=== PATIENT | female | born 1965 | race Caucasian/White ===

== ENCOUNTER → 2019-09-03 10:47 | Outpatient (CLI) | payer OTHER, SELFPAY ==
--- NOTE | ~2019-09-03 | MR_ITS ---
EXAMINATION: MR lumbar spine wo [facility] EXAM DATE: 09/03/2019 11:28 INDICATION: Right hip pain, right thigh pain and numbness. Previous surgery 2012. TECHNIQUE: Multi-sequential, multiplanar MR images of the lumbar spine were obtained without contrast . Sagittal T1, T2, T2 fat saturation images. Axial T2 weighted images. Comparison is made to prior examination from 12/03/2016. FINDINGS: There is mild lumbar levoscoliosis. There is moderate to severe disc disease at L3-4, proba benjamin mild loss of the vertebral body heights on there right sides related to the scoliosis. Moderate t o severe disc disease at L4-5 as well. Mild to moderate disc disease at the other lumbar levels. The conus medullaris terminates at the L1/2 level and has normal signal intensity and morphology. There i s 2 mm retrolisthesis L3 on L4 and L4 on L5. Paraspinal soft tissue is unremarkable. Level by level evaluation: T11-12: There is a mild to moderate diffuse disc bulge. There is superimposed central extrusion with inferior migration to the mid T12 level, new finding compared to prior study. Mild to moderate centr al canal stenosis. Facet arthropathy: Mild. Neural foraminal stenosis: Mild to moderate left, no right. Central canal stenosis: Mild to moderate. T12-L1: There is a minimal diffuse disc bulge. Facet arthropathy: Mild. Neural foraminal stenosis: No stenosis. Central canal stenosis: No stenosis. L1-L2: There is a mild diffuse disc bulge. Facet arthropathy: Mild. Neural foraminal stenosis: No stenosis. Central canal stenosis: No stenosis. L2-L3: There is a mild to moderate diffuse disc bulge. Facet arthropathy: Mild to moderate. Neural foraminal stenosis: Mild to moderate right, mild left. Central canal stenosis: Mild to moderate. L3-L4: There is a moderate diffuse disc bulge. Facet arthropathy: Moderate to severe . Right-sided ligamentum flavum flavum enlargement. Neural foraminal stenosis: Moderate to severe right, moderate left. Central canal stenosis: Mild to moderate. Evidence of prior left hemilaminotomy. L4-L5: There is a moderate diffuse disc bulge. Facet arthropathy: Moderate. Neural foraminal stenosis: Moderate to severe left, mild to moderate right. Central canal stenosis: Moderate. Evidence of prior left, hemilaminotomy. L5-S1: There is a mild diffuse disc bulge. Facet arthropathy: Moderate left, mild to moderate right. Neural foraminal stenosis: Mild to moderate left, mild right. Central canal stenosis: Mild. Compared to previous examination, T11-12 extrusion is new. Otherwise difficult to appreciate signific ant interval change. IMPRESSION: 1. Advanced mid lumbar spondylosis. 2. Mild lumbar levoscoliosis. Reviewed, dictated and finalized at location B. E MINER BLASTING
--- NOTE | ~2019-09-03 | XR_ITS ---
EXAMINATION: XR lumbar spine 6V w bending DATE: 09/03/2019 12:26 INDICATION: Lumbar spondylosis without myelopathy or radiculopathy. TECHNIQUE: 7 views of lumbar spine including flexion and extension views were obtained. COMPARISON: Lumbar spine MRI 09/03/2019 FINDINGS: There is 17 degrees levoscoliosis of lumbar spine. Vertebral body heights are normal. There is severely decreased disc height at L3-L4 and L4-L5 and mildly decreased disc height at L2-L3. Ther e is no abnormal motion with flexion or extension. There is multilevel facet joint osteoarthritis, se jes bilaterally at L3-L4 and L4-L5 and on the left at L5-S1. IMPRESSION: 1. Severe lumbar spondylosis. 2. Lumbar levoscoliosis. Reviewed, dictated and finalized at location A. OR MAJOR GIFTS OFFICER
== END ==
PROVIDERS: PCP Physician Assistant; Visit Provider Physician Assistant Medical
DX: M47.816 Spondylosis without myelopathy or radiculopathy, lumbar region (principal)
CPT/HCPCS: 72114; 72148

== ENCOUNTER 2019-09-19 11:14 | Emergency (ER) | payer OTHER, SELFPAY ==
[2019-09-19 12:11] VITALS: BP 148/89; PULSE 88; RESP 16; TEMP 36.1; O2SAT 98
--- NOTE | 2019-09-19 12:34 | ED.URI ---
HPI - URI/Sore Throat General Chief Complaint: Upper Respiratory Infection Stated Complaint: Sore throat Time Seen by Provider: 09/19/19 12:23 Source: patient and RN notes reviewed Mode of arrival: ambulatory Limitations: no limitations History of Present Illness HPI Narrative: Patient presents today with a 2-day historyOf right ear pain with decreased hearing, headache, sore throat. Denies cough congestion. She has been taking Mucinex, Tylenol, and Chloraseptic with some relief. Reports her pain is an 8/10 in the morning, but worsened Decreases throughout the day. Pain increases with swallowing. MD elicited complaint: sore throat and other (Ear pain) Related Data Home Medications Medication Instructions Recorded Confirmed bupropion HCl [Wellbutrin XL] 150 mg PO QAM 09/19/19 09/19/19 citalopram 20 mg PO DAILY 09/19/19 09/19/19 fenofibrate 160 mg PO DAILY 09/19/19 09/19/19 levothyroxine 50 mcg PO DAILY 09/19/19 09/19/19 morphine 15 mg PO Q8H 09/19/19 09/19/19 pantoprazole 40 mg PO HS 09/19/19 09/19/19 simvastatin 10 mg PO DAILY 09/19/19 09/19/19 Allergies Allergy/AdvReac Type Severity Reaction Status Date / Time AMOXICILLIN TRIHYDRATE AdvReac Severe c-diff Uncoded 09/19/19 12:33 POTASSIUM CLAVULANATE AdvReac Severe c-diff Uncoded 09/19/19 12:33 Review of Systems Review of Systems: Narrative: CONSTITUTIONAL: Denies body aches, fever, chills, or sweats. EYES: Denies visual changes, redness, or discharge. ENT: Denies rhinorrhea, congestion. +Sore throat, right ear pain with decreased hearing CARDIOVASCULAR: Denies chest pain, palpitations, or edema. RESPIRATORY: Denies cough or dyspnea. GASTROINTESTINAL: Denies abdominal pain, nausea, vomiting, or diarrhea. GENITOURINARY: Denies dysuria or hematuria. SKIN: Denies rash, itching, or wounds. MUSCULOSKELETAL: Denies back pain, joint pain, or myalgia. NEUROLOGIC: Denies numbness, tingling, or weakness.+Headache PSYCH: Denies depression or anxiety. PMFSH Comments At time of signature, I have reviewed and agree with nursing past medical, surgical, social and family history unless otherwise noted. Please see nursing chart for further information. There is no relevant family history pertinent to the presenting complaint Exam Narrative: Exam Narrative: GENERAL: Well-appearing, well-nourished, and in no acute distress. HEAD: Normocephalic, atraumatic. EYES: EOMI. No redness or drainage. Conjunctivae normal. ENT: Mucous membranes pink and moist. Nares clear. No rhinorrhea. Left TM normal. Right TM is injected and bulging with purulent material. Throat normal. Uvula midline. NECK: Normal AROM. Supple. No lymphadenopathy. CHEST: No respiratory distress. Clear to auscultation. HEART: Regular rate and rhythm. No murmur appreciated. Normal peripheral pulses. EXTREMITIES: Normal range of motion. No edema. SKIN: Warm, dry, no rash. NEURO: No focal deficits. Alert and oriented x3. Gait steady. PSYCH: Normal affect. No signs of depression or anxiety. Course Vital Signs Vital signs: Vital Signs Temperature 97 F L 09/19/19 12:11 Pulse Rate 88 09/19/19 12:11 Respiratory Rate 16 09/19/19 12:11 Blood Pressure 148/89 H 09/19/19 12:11 Pulse Oximetry 98 09/19/19 12:11 Temperature 97 F L 09/19/19 12:11 Pulse Rate 88 09/19/19 12:11 Respiratory Rate 16 09/19/19 12:11 Blood Pressure 148/89 H 09/19/19 12:11 Pulse Oximetry 98 09/19/19 12:11 Reviewed. Pt has been instructed to follow up with her PCP regarding her elevated blood pressure today. MDM - URI/Sore Throat Differential Diagnosis Differential diagnosis: Likely upper respiratory infection, otitis media, viral infection and other (Strep throat) Lab Data Attestation: I reviewed the patient's lab results. Labs: Strep Screen Presumptive Negative *(Reference Range: Negative)* Critical Care Time Critical Care Time Critical Care Time: No Discharge Plan Discha
== END 2019-09-19 12:40 | disposition home or self-care (01) ==
PROVIDERS: Emergency Provider Nurse Practitioner
DX: H66.001 Acute suppurative otitis media without spontaneous rupture of ear drum, right ear (principal); E78.00 Pure hypercholesterolemia, unspecified; K21.9 Gastro-esophageal reflux disease without esophagitis; E03.9 Hypothyroidism, unspecified; F41.9 Anxiety disorder, unspecified; F32.9 Major depressive disorder, single episode, unspecified
CPT/HCPCS: 87081; 87880; 99213; G0463

== ENCOUNTER 2020-08-30 16:52 | Outpatient (CLI) | payer OTHER, SELFPAY ==
--- NOTE | ~2020-08-30 | MM_ITS ---
EXAMINATION: MM screening sayra BI w laurence HISTORY: Screening mammogram TECHNIQUE: Craniocaudal and mediolateral oblique 3-D tomosynthesis images were obtained and synthetic 2-D images were generated. CAD analysis was submitted and interpreted. COMPARISON: 06/25/2019, 05/01/2018, 06/12/2017 BREAST PARENCHYMAL COMPOSITION: The breasts are almost entirely fatty. FINDINGS: A stable intramammary lymph node is noted in the lower inner left breast. There is no evide nce of suspicious mass, calcification, or architectural distortion to suggest malignancy in either br east. There has been no suspicious interval change. IMPRESSION: 1. No mammographic evidence of malignancy. 2. Recommend routine screening mammography in one year. BI-RADS Category 2: Benign finding(s). Reviewed, dictated and finalized at location A. PACKAGER
== END 2020-08-30 16:53 | disposition home or self-care (01) ==
LOC: ANHIMG 16:56
PROVIDERS: PCP Physician Assistant; Visit Provider Physician Assistant
DX: Z12.31 Encounter for screening mammogram for malignant neoplasm of breast (principal)
CPT/HCPCS: 77063; 77067

== ENCOUNTER → 2021-01-19 07:39 | Outpatient (CLI) | payer OTHER, SELFPAY ==
--- NOTE | ~2021-01-19 | MR_ITS ---
EXAMINATION: MR lumbar spine wo con DATE: 01/19/2021 08:24 INDICATION: Lumbar radiculopathy. TECHNIQUE: Magnetic resonance imaging (MRI) of the lumbar spine was performed without intravenous con trast. Sequences included sagittal T2-weighted FSE, sagittal T2-weighted FS FSE, sagittal T1-weighted FSE, and axial T2-weighted FSE. COMPARISON: Lumbar spine MRI 09/03/2019 FINDINGS: There is 15 degrees levoscoliosis of lumbar spine. Vertebral body heights are normal. There is mildly decreased disc height at L2-L3, severely decreased disc height at L3-L4 and L4-L5, and mil dly decreased disc height at L5-S1. The distal spinal cord signal intensity is normal. The conus medu llaris is at L1. The following disc levels are specifically discussed: L1-L2: The disc is bulging with superimposed left foraminal extrusion. There is moderate bilateral fa cet joint osteoarthritis. There is mild left neural foraminal stenosis. There is mild central canal s tenosis. L2-L3: The disc is bulging and has an annular fissure. There is severe right and moderate left facet joint osteoarthritis. There is mild bilateral neural foraminal stenosis. There is mild central canal stenosis. L3-L4: The disc is bulging and has an annular fissure. There is severe bilateral facet joint osteoart hritis. There is moderate right and mild left neural foraminal stenosis. There is mild central canal stenosis. There are changes of left hemilaminotomy. L4-L5: The disc is bulging and has an annular fissure. There is severe bilateral facet joint osteoart hritis. There is mild right and moderate left neural foraminal stenosis. There is mild central canal stenosis. There are changes of left hemilaminotomy. L5-S1: The disc is bulging and has an annular fissure. There is severe bilateral facet joint osteoart hritis. There is mild bilateral neural foraminal stenosis. There is mild central canal stenosis. IMPRESSION: 1. Severe lumbar spondylosis, stable from 09/03/2019. 2. Lumbar levoscoliosis. Reviewed, dictated and finalized at location A.
== END ==
PROVIDERS: PCP Physician Assistant; Visit Provider Nurse Practitioner Adult Health
DX: M47.26 Other spondylosis with radiculopathy, lumbar region (principal)
CPT/HCPCS: 72148

== ENCOUNTER 2021-03-07 12:03 | Emergency (ER) | payer OTHER, SELFPAY ==
--- NOTE | ~2021-03-07 | XR_ITS ---
EXAMINATION: XR sacrum coccyx min 2V INDICATION: Coccyx pain after fall TECHNIQUE: Three views of the sacrum and coccyx are obtained. COMPARISON: 09/03/2019 FINDINGS: Bone alignment is normal. No fracture is identified. There is moderate to severe lower lumb ar spondylosis. There is soft tissue swelling dorsal to the sacrum and coccyx.. IMPRESSION: 1. No fracture identified. Reviewed, dictated and finalized at location B. IMPRESSION: 1. No fracture identified.
[2021-03-07 12:17] VITALS: BP 167/102; PULSE 80; RESP 18; TEMP 36.6; O2SAT 99
[2021-03-07 12:25] VITALS: BP 160/98
--- NOTE | 2021-03-07 12:31 | ED.GENADULT ---
HPI - General Adult General Chief complaint: Extremity Problem,Nontraumatic Stated complaint: right buttock injury Time Seen by Provider: 03/07/21 12:31 Source: patient and RN notes reviewed Mode of arrival: ambulatory Limitations: no limitations History of Present Illness HPI narrative: 55-year-old female presents with complaints of right buttock pain for the past 2 days. ?Jazmín reports slipping down several stairs at work on Friday March 05, 2021 at approximately 14:30, foot hit the edge of a step causing her to slide down 2 steps and hitting the RT side of her buttock and hip, now has increasing pain daily. ?Tylenol with some relief. ?Denies radiation of pain. ?No new numbness or tingling or bleeding. ?No swelling. ?No loss of mobility. ?Exacerbating factor consists of sitting. ?Some relieving factors consist of lying on the LT side and medication. ?Denies hitting head, loss of consciousness, syncopal episodes, dizziness, or seizure activities. ?Denies dysuria or hematuria. ?LMB today and normal. ?Denies nausea, vomiting, or abdominal pain. ?Tolerating liquids well. ?Remains active. The patient reports she was diagnosed with COVID-19 in October 2020. ?The patient reports she received 2 Moderna COVID-19 vaccines in July 2020. ?The patient reports she is not waiting for the results of a COVID-19 lab test. ?The patient reports she does not have weakness, fatigue, or myalgia. ?The patient reports she does not have a new or worsening cough or shortness of breath. ?The patient reports she does not have any rhinorrhea, congestion, loss of taste, sore throat, and diarrhea. ?Denies recent traveling. ?Denies concerns for COVID-19 or exposures. At this time, the patient is not suspected of having COVID-19. Some parts of this dictation were generated by voice recognition software and may contain typographical and/or grammatical inaccuracies. Related Data Home Medications Medication Instructions Recorded Confirmed ergocalciferol (vitamin D2) 50,000 unit PO WEEKLY 09/19/19 03/07/21 [Vitamin D2] fenofibrate 160 mg PO DAILY 09/19/19 03/07/21 levothyroxine 50 mcg PO DAILY 09/19/19 03/07/21 pantoprazole 40 mg PO HS 09/19/19 03/07/21 simvastatin 10 mg PO DAILY 09/19/19 03/07/21 acetaminophen 975 mg PO BID 03/07/21 03/07/21 bupropion HCl [Forfivo XL] 450 mg PO DAILY 03/07/21 03/07/21 Allergies Allergy/AdvReac Type Severity Reaction Status Date / Time AMOXICILLIN TRIHYDRATE AdvReac Severe c-diff Uncoded 03/07/21 12:32 POTASSIUM CLAVULANATE AdvReac Severe c-diff Uncoded 03/07/21 12:32 Review of Systems Review of Systems: CONSTITUTIONAL: Denies fever, chills, sweats. EYES: Denies visual changes, redness, discharge. ENT: Denies rhinorrhea, congestion, sore throat, otalgia. CARDIOVASCULAR: Denies chest pain, palpitations, edema. RESPIRATORY: Denies dyspnea, wheezing, cough. GASTROINTESTINAL: Denies abdominal pain, nausea, vomiting, diarrhea. GENITOURINARY: Denies dysuria, hematuria, abnormal discharge. SKIN: Denies rash or itching. MUSCULOSKELETAL: Denies acute back pain or myalgia. Complaints of Right buttock pain. NEUROLOGIC: Denies numbness or focal weakness. PSYCHIATRIC: Denies anxiety or depression. All systems reviewed & are unremarkable except as noted in HPI and below. [facility] Past Medical History Medical History (Updated 03/08/21 @ 00:02 by Madhav Damariia) Back pain with history of spinal surgery Chronic pain COVID-19 10/2020 Hypercholesteremia Hypothyroidism Obese Surgical History Surgical History (Updated 03/07/21 @ 13:40 by FRIDA Christie) History of cervical spinal surgery History of spinal surgery Hx of appendectomy Family History Family History (Updated 03/07/21 @ 13:41 by FRIDA Christie) Father , 1987 Cerebrovascular accident Mother Alive and well Social History Social History (Updated 03/07/21 @ 19:40 by FRIDA Christie) Smoking status: Light tobacco smoker
== END 2021-03-07 13:18 | disposition home or self-care (01) ==
PROVIDERS: Emergency Provider Nurse Practitioner Family; PCP Physician Assistant
DX: S39.92XA Unspecified injury of lower back, initial encounter (principal); W10.9XXA Fall (on) (from) unspecified stairs and steps, initial encounter; F17.210 Nicotine dependence, cigarettes, uncomplicated; E78.00 Pure hypercholesterolemia, unspecified; E03.9 Hypothyroidism, unspecified; E66.9 Obesity, unspecified; Z68.36 Body mass index [BMI] 36.0-36.9, adult; Z86.16 Personal history of COVID-19
CPT/HCPCS: 72220; 99213; G0463

== ENCOUNTER → 2021-06-07 13:21 | Outpatient (CLI) | payer OTHER, SELFPAY ==
--- NOTE | ~2021-06-07 | MR_ITS ---
EXAMINATION: MR lumbar spine wo/w con DATE: 06/07/2021 15:21 INDICATION: Lumbar spondylosis. Right-sided low back pain. TECHNIQUE: Magnetic resonance imaging (MRI) of the lumbar spine was performed without and with 19 mL MultiHance intravenous contrast. Sequences included sagittal T2-weighted FSE, sagittal T2-weighted FS FSE, sagittal T1-weighted FSE, and axial T2-weighted FSE. COMPARISON: Lumbar spine MRI 01/19/2021 FINDINGS: There is 16 degrees levoscoliosis of lumbar spine. Vertebral body heights are normal. There is mildly decreased disc height at L1-L2 and L2-L3, severely decreased disc height at L3-L4 and L4-L 5, and moderately decreased disc height at L5-S1 with endplate remodeling. The distal spinal cord sig nal intensity is normal. The conus medullaris is at L1. The following disc levels are specifically di scussed: L1-L2: The disc is bulging and has an annular fissure. There is mild right and moderate left facet rohini int osteoarthritis. There is mild right and moderate left neural foraminal stenosis. There is mild ce ntral canal stenosis. L2-L3: The disc is bulging and has an annular fissure. There is moderate bilateral facet joint osteoa rthritis. There is moderate right and mild left neural foraminal stenosis. There is mild central alecia l stenosis. L3-L4: The disc is bulging and has an annular fissure. There is severe bilateral facet joint osteoart hritis. There is moderate right and mild left neural foraminal stenosis. There is mild central canal stenosis. L4-L5: The disc is bulging and has an annular fissure. There is severe bilateral facet joint osteoart hritis. There is moderate bilateral neural foraminal stenosis. There is mild central canal stenosis. L5-S1: The disc is bulging and has an annular fissure. There is severe bilateral facet joint osteoart hritis. There is moderate bilateral neural foraminal stenosis. There is mild central canal stenosis. IMPRESSION: 1. Severe lumbar spondylosis, stable from 01/13/2021. 2. Lumbar levoscoliosis. Reviewed, dictated and finalized at location A. T SHIFT SUPERVISOR
[2021-06-07 14:33] LABS: Estimated Glomerular Filt Rate 58
== END ==
PROVIDERS: Visit Provider Neurological Surgery
DX: M47.816 Spondylosis without myelopathy or radiculopathy, lumbar region (principal); M41.86 Other forms of scoliosis, lumbar region
CPT/HCPCS: 72158; A9577

== ENCOUNTER 2021-08-24 11:10 | Outpatient (CLI) | payer OTHER, SELFPAY ==
--- NOTE | 2021-08-24 | ECG_ITS ---
Measurements Intervals [place] Rate: 76 P: 51 NE: 173 QRS: 13 QRSD: 92 T: 46 QT: 405 QTc: 458 Interpretive Statements SINUS RHYTHM NORMAL ECG Electronically Signed On 08-24-2021 16:11:15 PHONOGRAPH NEEDLE TIP MAKER by Alex Shane D.O.
[2021-08-24 12:01] LABS: Basophils Absolute Auto 0.1 K/mm3 (0.0-0.1); Basophils Percent Auto 1.2 % (0.2-1.2); Eosinophils Absolute Auto 0.2 K/mm3 (0-0.3); Eosinophils Percent Auto 2.6 % (0-4.4); Hematocrit 36.4 % (37.0-47.0); Hemoglobin 11.8 g/dL (12.0-15.0); Immature Granulocyte Absolute 0.02 K/mm3 (0.00-0.031); Immature Granulocyte Percent A 0.3 % (0-0.5); Lymphocytes Absolute Auto 2.53 K/mm3 (0.9-3.2); Lymphocytes Percent Auto 38.6 % (18.3-44.2); Mean Corpuscular HGB Conc 32.4 g/dl (32-36); Mean Corpuscular Hemoglobin 29.9 pg (26-34); Mean Corpuscular Volume 92.4 fl (80-100); Mean Platelet Volume 9.9 fl (7.4-10.4); Monocytes Absolute Auto 0.4 K/mm3 (0.1-0.6); Monocytes Percent Auto 6.4 % (2.6-8.5); Neutrophils Absolute Auto 3.3 K/mm3 (1.3-6.7); Neutrophils Percent Auto 50.9 % (45.5-73.1); Platelet Count Result 506 k/mm3 (150-375); Red Blood Count 3.94 M/mm3 (4.2-5.4); Red Cell Distribution Width 12.2 % (11.5-14.5); White Blood Count 6.6 K/mm3 (4.5-10.0)
[2021-08-24 12:03] LABS: Add Urine Microscopic? NO; Appearance Urine Clear (Clear); Bilirubin Urine Negative (Negative); Blood Urine Negative (Negative); Color Urine Yellow (Yellow); Glucose Urine UA Negative (Negative); Ketones Urine Negative (Negative); Leukocyte Esterase Ur Negative LEU/UL (NEGATIVE); Nitrate Urine Negative (Negative); Protein Urine Negative (Negative); Specific Grav Ur 1.015 (1.001-1.035); Urobilinogen Urine Negative mg/dL (<2.0)
[2021-08-24 12:12] LABS: Partial Thromboplastin Time 26.8 SECONDS (22.3-36.8); Prothrombin Time 12.6 Seconds (11.1-14.7)
[2021-08-24 12:20] LABS: Anion Gap 7 mmol/L (8-16); Blood Urea Nitrogen 13 mg/dL (7-17); Calcium 9.9 mg/dL (8.4-10.2); Carbon Dioxide 29 mmol/L (22-30); Chloride 104 mmol/L (98-107); Estimated Glomerular Filt Rate 58; Glucose 101 mg/dL (65-110); Potassium 4.1 mmol/L (3.4-5.0); Sodium 140 mmol/L (137-145)
== END 2021-08-24 11:11 | disposition home or self-care (01) ==
PROVIDERS: PCP Physician Assistant; Visit Provider Neurological Surgery
DX: Z01.818 Encounter for other preprocedural examination (principal)
CPT/HCPCS: 36415; 80048; 81003; 85025; 85610; 85730; 93005

== ENCOUNTER 2022-03-09 16:26 | Emergency (ER) | payer OTHER, SELFPAY ==
[2022-03-09 16:28] VITALS: BP 179/99; PULSE 83; RESP 18; TEMP 37.1; O2SAT 100
--- NOTE | 2022-03-09 17:01 | ED.WOUNDLAC ---
HPI - Wound/Laceration General Chief Complaint: Wound/Laceration Stated Complaint: right thumb lac Time Seen by Provider: 03/09/22 16:49 History of Present Illness HPI narrative: This is a 56-year-old female past medical history of hypothyroidism, coming to the emergency department after cutting her right thumb on a mandolin. She states she was slicing potatoes. She denies any other injuries, her pain is 4 out of 10, sharp. She has no other complaints today. Related Data Home Medications Medication Instructions Recorded Confirmed ergocalciferol (vitamin D2) 1,250 50,000 unit PO WEEKLY 09/19/19 03/07/21 mcg (50,000 unit) capsule (Vitamin D2) fenofibrate 160 mg tablet 160 mg PO DAILY 09/19/19 03/07/21 levothyroxine 50 mcg tablet 50 mcg PO DAILY 09/19/19 03/07/21 pantoprazole 40 mg tablet,delayed 40 mg PO HS 09/19/19 03/07/21 release simvastatin 10 mg tablet 10 mg PO DAILY 09/19/19 03/07/21 acetaminophen 325 mg tablet 975 mg PO BID 03/07/21 03/07/21 bupropion HCl 450 mg 24 hr tablet, 450 mg PO DAILY 03/07/21 03/07/21 extended release (Forfivo XL) Allergies Allergy/AdvReac Type Severity Reaction Status Date / Time AMOXICILLIN TRIHYDRATE AdvReac Severe c-diff Uncoded 03/07/21 12:32 POTASSIUM CLAVULANATE AdvReac Severe c-diff Uncoded 03/07/21 12:32 Review of Systems Review of Systems: CONSTITUTIONAL: Denies fever, chills, or sweats. EYES: Denies visual changes, redness, or discharge. ENT: Denies rhinorrhea, congestion, sore throat, or otalgia. CARDIOVASCULAR: Denies chest pain, palpitations, or edema. RESPIRATORY: Denies cough or dyspnea. GASTROINTESTINAL: Denies abdominal pain, nausea, vomiting, or diarrhea. GENITOURINARY: Denies dysuria or hematuria. SKIN: Denies rash or itching. MUSCULOSKELETAL: Denies back pain, joint pain, or myalgia. NEUROLOGIC: Denies headache, numbness, dizziness, or weakness. PSYCHIATRIC: Denies anxiety or depression. [facility] Past Medical History Medical History (Updated 03/09/22 @ 18:15 by Foreign Gross MD) Back pain with history of spinal surgery Chronic pain COVID-19 10/2020 Hypercholesteremia Hypothyroidism Obese Surgical History Surgical History (Updated 03/07/21 @ 13:40 by FRIDA Christie) History of cervical spinal surgery History of spinal surgery Hx of appendectomy Family History Family History (Updated 03/07/21 @ 13:41 by FRIDA Christie) Father , 1987 Cerebrovascular accident Mother Alive and well Social History Social History (Updated 03/07/21 @ 19:40 by FRIDA Christie) Smoking status: Light tobacco smoker Tobacco type: cigarettes Second hand tobacco smoke exposure: Yes (spouse) Additional smoking assessment comments: had quit 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 HEAD: Normocephalic, atraumatic. EYES: PERRLA and EOMI. CHEST: Clear to auscultation. No respiratory distress. No wheezes rales or rhonchi HEART: Regular rate and rhythm. No murmur heard. Normal peripheral pulses. ABDOMEN: Soft, nontender, nondistended, normal active bowel sounds. EXTREMITIES: 3 cm ovoid laceration with flap of the right medial palmar thumb, sensation intact, range of motion of the thumb is intact normal range of motion. No edema. SKIN: Warm, dry, no rash. NEURO: No focal deficits. Alert and oriented x3. PSYCH: Normal mood and affect. Course Vital Signs Vital signs: Vital Signs Temperature 98.7 F 03/09/22 16:28 Pulse Rate 83 03/09/22 16:28 Respiratory Rate 18 03/09/22 16:28 Blood Pressure 179/99 H 03/09/22 16:28 Pulse Oximetry 100 03/09/22 16:28 Temperature 98.7 F 03/09/22 16:28
== END 2022-03-09 18:22 | disposition home or self-care (01) ==
PROVIDERS: Emergency Provider Preventive Medicine Aerospace Medicine; PCP Physician Assistant
DX: S61.011A Laceration without foreign body of right thumb without damage to nail, initial encounter (principal); Z86.16 Personal history of COVID-19; E78.00 Pure hypercholesterolemia, unspecified; E03.9 Hypothyroidism, unspecified; E66.9 Obesity, unspecified; Z68.35 Body mass index [BMI] 35.0-35.9, adult; F17.210 Nicotine dependence, cigarettes, uncomplicated; Y93.G1 Activity, food preparation and clean up; W27.4XXA Contact with kitchen utensil, initial encounter
CPT/HCPCS: 12002; 99282

== ENCOUNTER → 2022-03-25 12:03 | Outpatient (CLI) | payer OTHER, SELFPAY ==
--- NOTE | ~2022-03-25 | MM_ITS ---
EXAMINATION: MM screening sayra BI w laurence HISTORY: Screening mammogram TECHNIQUE: Craniocaudal and mediolateral oblique 3-D tomosynthesis images were obtained and synthetic 2-D images were generated. CAD analysis was submitted and interpreted. COMPARISON: 08/30/2020, 06/25/2019, 05/01/2018 BREAST PARENCHYMAL COMPOSITION: The breasts are almost entirely fatty. FINDINGS: Again noted is a stable intramammary lymph node is noted in the lower inner left breast. Th ere is no suspicious mass, calcification, or architectural distortion to suggest malignancy in either breast. There has been no suspicious interval change. IMPRESSION: 1. No mammographic evidence of malignancy. 2. Recommend routine screening mammography in one year. BI-RADS Category 2: Benign finding(s). Reviewed, dictated and finalized at location A.
--- NOTE | ~2022-03-25 | DEXA_ITS ---
Bone Density Report Name: JOSE EDUARDO JASSO Age: 56 Sex: Female Ethnicity: White Date of : 1965 Indication: postmenopausal; screening for osteoporosis; Referring Provider: DOC METZ Study: Bone densitometry was performed. Exam Date: March 25, 2022 Accession number: [id number] Bone Density: Region BMD T-score Z-score Classification AP Spine (L1, L2, L3) 1.059 0.4 1.5 Normal Femoral Neck (Left) 0.594 -2.3 -1.2 Osteopenia Total Hip (Left) 0.866 -0.6 0.1 Normal Femoral Neck (Right) 0.616 -2.1 -1.0 Osteopenia Total Hip (Right) 0.777 -1.4 -0.6 Osteopenia Total Hip Mean 0.822 -1.0 -0.3 Normal World Health Organization criteria for BMD impression classify patients as: Normal (T-score at or above -1.0), Osteopenia (T-score between -1.0 and -2.5), or Osteoporosis (T-score at or below -2.5). 10-year Fracture Risk(1): Major Osteoporotic Fracture 8.4% Hip Fracture 1.9% Reported Risk Factors: [place] (), Neck BMD=0.594, BMI=36.1, smoking (1) FRAX(R) Version 3.08. Fracture probability calculated for an untreated patient. Fracture probability may be lower if the patient has received treatment. Previous Exams: Region Exam Age BMD T-score BMD Change BMD Change Date g/cm2 vs Baseline vs Previous AP Spine(L1, L2, L3) 03/25/2022 56 1.059 0.4 -0.058* -0.058* 09/17/2015 50 1.117 0.9 Total Hip(Left) 03/25/2022 56 0.866 -0.6 -0.020 -0.020 09/17/2015 50 0.887 -0.5 Total Hip(Right) 03/25/2022 56 0.777 -1.4 -0.069* -0.069* 09/17/2015 50 0.845 -0.8 *Denotes significance at 95% confidence level, LSC for AP Spine = 0.022 g/cm2, LSC for Total Hip = 0.027 g/cm2 Clinical Information Provided by Patient: Smokes Has used the following medications: Vitamin D Patient maximum height was 64 Menopause Age: 43 No regular weight bearing exercise Drinks caffeinated beverages Onset of menses at age 14 Number of children 0 Impression: The patient has low bone mass, based on the Left Femoral Neck T-score. The patient has an estimated ten-year risk of hip fracture of 1.9% and an estimated ten-year risk of major fracture of 8.4%, based on the WHO FRAX algorithm. The patient has risk factors, including: smoking. The BMD for the AP Spine(L1, L2, L3) decreased, changing by -0.058 since the last DXA exam. The BMD for the Total Hip(Right) decreased, changing by -0.069 since the last DXA exam.
== END ==
PROVIDERS: PCP Physician Assistant; Visit Provider Advanced Practice Midwife
DX: Z12.31 Encounter for screening mammogram for malignant neoplasm of breast (principal); Z78.0 Asymptomatic menopausal state; M85.89 Other specified disorders of bone density and structure, multiple sites
CPT/HCPCS: 77063; 77067; 77080

== ENCOUNTER 2022-08-07 08:18 | Outpatient (CLI) | payer OTHER, SELFPAY ==
--- NOTE | 2022-08-25 11:30 | WPDSLEEPSTUD ---
Sleep Study Date of Study: 08/07/22 Ordering Provider: Les Villatoro MD Interpreting Physician: Jduy Lyons DO Sleep Study Type: Split Polysomnogram Height: 1.63 m Weight: 88.904 kg Body Mass Index: 33.6 Neck Circumference (inches): 16 [place]: 9 Reason for Sleep Study Previously diagnosed with COOPER. Non compliant with CPAP. Sleep History The patient is a 57-year-old female with hypertension hyperlipidemia, hypothyroidism, depression, GERD, tobacco use previously diagnosed sleep apnea had a sleep study ordered by her floorworker to requalify for PAP therapy. The patient denies awakening from sleep short of breath. She frequently awakens at night with heartburn, belching or cough. She frequently snores and is occasionally loud enough that others complain. He denies having trouble sleeping when she has a cold. She denies waking up gasping for air throughout the night. She frequently has breathing problems at night observed by herself or others. She denies sweating excessively at night. She denies having heart palpitations or irregular heartbeats during the night. She denies falling asleep during the day and while driving. She denies sleep paralysis and cataplexy. She denies having trouble at school or work due to sleepiness. She occasionally experiences vivid dreamlike scenes upon awakening or falling asleep. She denies feeling afraid of going to sleep. She constantly has nightmares. She frequently remembers her dreams. She constantly has thoughts racing through her mind. She frequently feels sad or depressed. She constantly has anxiety. She frequently has muscular tension. She rarely notices parts of her body jerk. She denies kicking during the night. She denies having crawling and aching feelings in her legs as well as leg pain during the night. She frequently grinds her teeth during sleep and frequently awakens with morning jaw pain. She is constantly bothered by pain during the day and constantly awakened by pain during the night. She constantly wakes up feeling stiff morning. She occasionally wakes up with sore or achy muscles. She constantly wakes up with pain in the neck, spine or other joints. She goes to bed at 8:30 p.m. on both weekdays and weekends. She is able to fall asleep immediately. She wakes up 3-4 times throughout the night to urinate. It can take a few hours for her to fall back asleep. She wakes up at 5:00 a.m. on weekdays and between 5-5:30 a.m. on the weekends. He typically gets 7-8 hours of sleep per night. She will stay in bed for 5-15 minutes after waking up in the morning. She currently lives with her . She denies consuming any caffeinated beverages within 2 hours of bedtime. She does not engage in physical exercise before bedtime. She will watch television before falling asleep. She denies taking naps in the afternoon or the evening. She drinks 2-3 cups of coffee per day. She will smoke half a pack of cigarettes per day. She denies alcohol and recreational drug use. [facility] Past Medical History Medical History Back pain with history of spinal surgery Chronic pain COVID-19 10/2020 Encounter for screening colonoscopy Hypercholesteremia Hypothyroidism Obese Surgical History Surgical History History of cervical spinal surgery History of spinal surgery Hx of appendectomy Family History Family History Father , 1987 Cerebrovascular accident Mother Alive and well Social History Social History Years smoked: 30 Smoking status: Light tobacco smoker Tobacco type: cigarettes Second hand tobacco smoke exposure: Yes (spouse) Additional smoking assessment comments: had quit but now works an hour each directions to work
[2022-08-25 11:42] VITALS: BMI 33.6
== END 2022-08-08 06:37 | disposition home or self-care (01) ==
PROVIDERS: PCP Physician Assistant; Visit Provider Internal Medicine Pulmonary Disease
DX: G47.33 Obstructive sleep apnea (adult) (pediatric) (principal); G47.10 Hypersomnia, unspecified
CPT/HCPCS: 95811

== ENCOUNTER 2022-10-10 00:45 | Day surgery (SDC) | payer OTHER, SELFPAY ==
[2022-10-01 14:33] VITALS: BMI 34.3
[2022-10-10 07:00] VITALS: BP 127/78; PULSE 76; RESP 16; TEMP 35.9; O2SAT 98
--- NOTE | 2022-10-10 07:12 | WPDANESEPPF ---
Anes - Initial Pre Proc Eval Procedure: Operation Date: 10/10/22 08:00 Proposed Procedures p Esophagogastroduodenoscopy & Screening Colonoscopy - Santiago Colmenares MD Date/Time: 10/10/22 07:12 Surgeon: Santiago Colmenares MD Pre Op Diagnosis: GERD, family hx colon ca, neoplasm screening Patient Data Age: 57 Gender: F Height: 1.63 m Weight: 91.1 kg Last Vital Signs Temp 35.9 C L 10/10/22 07:00 Pulse 76 10/10/22 07:00 Resp 16 10/10/22 07:00 BP 127/78 10/10/22 07:00 Pulse Ox 98 10/10/22 07:00 O2 Del Method Room Air 10/10/22 07:00 Allergies Allergy/AdvReac Type Severity Reaction Status Date / Time POTASSIUM CLAVULANATE AdvReac Severe c-diff Uncoded 10/10/22 06:57 Home Medications Medication Instructions Recorded Confirmed Type ergocalciferol (vitamin D2) 1,250 50,000 unit PO WEEKLY 09/19/19 10/01/22 History mcg (50,000 unit) capsule (Vitamin D2) fenofibrate 160 mg tablet 160 mg PO DAILY 09/19/19 10/01/22 History levothyroxine 50 mcg tablet 50 mcg PO DAILY 09/19/19 10/01/22 History simvastatin 10 mg tablet 10 mg PO DAILY 09/19/19 10/01/22 History bupropion HCl 450 mg 24 hr tablet, 450 mg PO DAILY 08/06/22 10/10/22 History extended release (Forfivo XL) clonazepam 0.5 mg tablet 0.25 mg PO QHS 08/06/22 10/01/22 History multivitamin (Multiple Vitamins 1 tablet PO DAILY 08/06/22 10/01/22 History tablet) nebivolol 5 mg tablet 5 mg PO DAILY 08/06/22 10/10/22 History sodium,potassium,mag sulfates 17.5 See Rx Instructions PO .COMPLEX 09/18/22 10/01/22 Rx gram-3.13 gram-1.6 gram oral soln #354 mL (Suprep Bowel Prep Kit) escitalopram oxalate 20 mg tablet 20 mg PO DAILY 10/01/22 10/01/22 History (Lexapro) Patient hx anesthesia problems: none Family hx anesthesia problems: none Results Review: All pre-operative results and documents have been reviewed as part of the pre-operative evaluation. [facility] Past Medical History Medical History Back pain with history of spinal surgery Chronic pain COVID-19 10/2020 Encounter for screening colonoscopy Hypercholesteremia Hypothyroidism Obese Surgical History Surgical History History of cervical spinal surgery History of spinal surgery Hx of appendectomy Family History Family History Father , 1987 Cerebrovascular accident Mother Alive and well Social History Social History Years smoked: 20 Smoking status: Former smoker Tobacco type: cigarettes Second hand tobacco smoke exposure: Yes (spouse) Additional smoking assessment comments: had quit but now works an hour each directions to work Alcohol intake: current Alcohol use details: social Substance use: former Substance use type: former substance user and other Other substance usage details: alcohol Last use: 2001 Living arrangements: with family Occupation/Education: occupation Gender identity (if verbalized by the patient): Female Sexual Orientation (if Verbalized by the Patient): Straight or Heterosexual Spiritual care concerns: No Anes - Eval Final PreProcedure Day of Procedure 10/10/22 07:12 Patient weight: obese Heart: regular rate and rhythm Lungs: clear to auscultation Airway: Mallampati scale class II Neurological: alert and oriented Last oral intake: >/= 8 hours ASA classification: III Emergent: no Anesthetic plan: proceed Anesthesia type and monitoring: general GIVS and standard monitoring Results Review: All pre-operative results and documents have been reviewed as part of the pre-operative evaluation. Informed Consent: The patient's anesthetic plan and its attendant risks and benefits were discussed with the patient/family/POA. Questions were solicited and answers provided to the satisfactio
[2022-10-10] MEDS: LACTATED RINGERS 1,000 ML 150 ML IV CONT (07:15)
--- NOTE | 2022-10-10 07:26 | PM.HPGS ---
History of Present Illness History of Present Illness Consent: Risks, benefits, and alternatives have been discussed and questions answered. Patient agrees to proceed with procedure. Chief complaint: GERD, family hx colon ca, neoplasm screening Narrative: Jazmín Dejesus is a 57 year old female Patient presents for colonoscopy and EGD. Patient reports a long history of GE reflux for many years. She states she has been on many different medications. Apparently has had difficulty with insurance coverage. Occasionally takes [id number] Pepcid most recently has taken [id number] omeprazole 20mg tablets twice a day. Previously on generic AcipHex. Patient reports that nocturnally she will have regurgitation. This causes some burning in her throat. She states that she only has a couple cups of coffee in the morning. Currently frustrated because of regurgitation. Family history is significant her father had colon cancer. Patient reports has been more than 12 years since last colonoscopy. Screening colonoscopy also advised because of her age and family history. Review of Systems Review of Systems: Review of systems noncontributory. PMFSH Past Medical History Medical History Back pain with history of spinal surgery Chronic pain COVID-19 10/2020 Encounter for screening colonoscopy Hypercholesteremia Hypothyroidism Obese Surgical History Surgical History History of cervical spinal surgery History of spinal surgery Hx of appendectomy Family History Family History Father , 1987 Cerebrovascular accident Mother Alive and well Social History Social History Years smoked: 20 Smoking status: Former smoker Tobacco type: cigarettes Second hand tobacco smoke exposure: Yes (spouse) Additional smoking assessment comments: had quit but now works an hour each directions to work Alcohol intake: current Alcohol use details: social Substance use: former Substance use type: former substance user and other Other substance usage details: alcohol Last use: 2001 Living arrangements: with family Occupation/Education: occupation Gender identity (if verbalized by the patient): Female Sexual Orientation (if Verbalized by the Patient): Straight or Heterosexual Spiritual care concerns: No Meds Home Medications and Allergies Home Medications Medication Instructions Recorded Confirmed Type ergocalciferol (vitamin D2) 1,250 50,000 unit PO WEEKLY 09/19/19 10/01/22 History mcg (50,000 unit) capsule (Vitamin D2) fenofibrate 160 mg tablet 160 mg PO DAILY 09/19/19 10/01/22 History levothyroxine 50 mcg tablet 50 mcg PO DAILY 09/19/19 10/01/22 History simvastatin 10 mg tablet 10 mg PO DAILY 09/19/19 10/01/22 History bupropion HCl 450 mg 24 hr tablet, 450 mg PO DAILY 08/06/22 10/10/22 History extended release (Forfivo XL) clonazepam 0.5 mg tablet 0.25 mg PO QHS 08/06/22 10/01/22 History multivitamin (Multiple Vitamins 1 tablet PO DAILY 08/06/22 10/01/22 History tablet) nebivolol 5 mg tablet 5 mg PO DAILY 08/06/22 10/10/22 History sodium,potassium,mag sulfates 17.5 See Rx Instructions PO .COMPLEX 09/18/22 10/01/22 Rx gram-3.13 gram-1.6 gram oral soln #354 mL (Suprep Bowel Prep Kit) escitalopram oxalate 20 mg tablet 20 mg PO DAILY 10/01/22 10/01/22 History (Lexapro) Allergies Allergy/AdvReac Type Severity Reaction Status Date / Time POTASSIUM CLAVULANATE AdvReac Severe c-diff Uncoded 10/10/22 06:57 Vital Signs Vital Signs - 24 hr 10/10/22 07:00 Temperature 96.6 F L Pulse Rate 76 Respiratory Rate 16 Blood Pressure 127/78 Pulse Oximetry 98 Oxygen Delivery Room Air Exam Narrative: Physical exam reveals patient to be alert. Vital sign
--- NOTE | 2022-10-10 08:04 | SUR.OPER ---
EGD start 805 end 806 Colonoscopy start 814
[2022-10-10 08:30] VITALS: BP 97/63; PULSE 82; RESP 24; TEMP 35.9; O2SAT 98
[2022-10-10 08:40] VITALS: BP 102/63; PULSE 94; RESP 23; TEMP 35.9; O2SAT 96
[2022-10-10 08:50] VITALS: BP 101/70; PULSE 94; RESP 20; TEMP 35.9; O2SAT 98
== END 2022-10-10 08:56 | disposition home or self-care (01) ==
PROVIDERS: PCP Physician Assistant; Visit Provider Internal Medicine Gastroenterology
PROC: 0DJ08ZZ Inspection of Upper Intestinal Tract, Via Natural or Artificial Opening Endoscopic (ICD-10-PCS; CPT 43235; principal; 2022-10-10 08:00)
DX: Z12.11 Encounter for screening for malignant neoplasm of colon (principal); K64.8 Other hemorrhoids; Z80.0 Family history of malignant neoplasm of digestive organs; K21.9 Gastro-esophageal reflux disease without esophagitis; E03.9 Hypothyroidism, unspecified; E78.00 Pure hypercholesterolemia, unspecified; E66.9 Obesity, unspecified; Z68.34 Body mass index [BMI] 34.0-34.9, adult; Z87.891 Personal history of nicotine dependence
CPT/HCPCS: 45378; 43239; 87081; J2704; J7120

== ENCOUNTER 2023-03-29 02:29 | Emergency (ER) | payer OTHER, SELFPAY ==
[2023-03-29] VITALS (12 sets, daily range): BP systolic 101–133; BP diastolic 66–94; PULSE 66–85; RESP 14–19; TEMP 36.8; O2SAT 96–99
--- NOTE | ~2023-03-29 | CT_ITS ---
EXAMINATION: CT abdomen pelvis w con DATE: 03/29/2023 04:30 INDICATION: Right upper quadrant abdominal pain. Nausea and vomiting. TECHNIQUE: Computed tomography (CT) of the abdomen and pelvis was performed with 100 mL Omnipaque 350 intravenous contrast. Automated exposure control and iterative reconstruction technique were employe d. The dose-length product was 1148.52 mGy-cm. COMPARISON: CT abdomen and pelvis 03/13/2016 FINDINGS: The visualized portions of the lung bases demonstrate mild atelectasis. No pleural effusion . The heart size is normal. No pericardial effusion. There is a small sliding hiatal hernia. There is diffuse hepatic steatosis. The gallbladder, spleen, pancreas, and left adrenal gland are normal. The re is a 2.7 cm mass in right adrenal gland measuring soft tissue attenuation that previously measured 2.0 cm, likely an adenoma. There is cortical thinning of the kidneys. There is a supraumbilical vent ral hernia containing fat. There is a small volume of ascites. The appendix is normal. There are mild ly dilated loops of jejunum, consistent with adynamic ileus. There is wall thickening of many loops o f small bowel, consistent with enteritis. Aortic atherosclerosis is noted. There are no pathologicall y enlarged lymph nodes. There is lumbar levoscoliosis and severe spondylosis. IMPRESSION: 1. Enteritis and adynamic ileus. 2. Small volume of ascites. 3. Small sliding hiatal hernia. 4. Supraumbilical ventral hernia containing fat. Reviewed, dictated and finalized at location E.
--- NOTE | 2023-03-29 03:27 | ECG_ITS ---
Measurements Intervals [place] Rate: 72 P: 57 SC: 174 QRS: -4 QRSD: 93 T: 11 QT: 418 QTc: 460 Interpretive Statements SINUS RHYTHM BORDERLINE T WAVE ABNORMALITY- ANT/INF LEADS BORDERLINE ECG COMPARED TO ECG 08/24/2021 12:22:26 T WAVE ABNORMALITY NOW PRESENT Electronically Signed On 03-29-2023 7:18:26 CDT by Alex Shane D.O.
[2023-03-29] MEDS: SODIUM CHLORIDE 0.9% IV 2,000 ML 999 ML IV CONT (03:49)
[2023-03-29 03:50] LABS: Basophils Percent Auto 0.2 % (0.2-1.2); Eosinophils Absolute Auto 0.1 K/mm3 (0-0.3); Eosinophils Percent Auto 0.6 % (0-4.4); Hematocrit 45.3 % (37.0-47.0); Hemoglobin 14.8 g/dL (12.0-15.0); Immature Granulocyte Absolute 0.11 K/mm3 (0.00-0.031); Immature Granulocyte Percent A 0.5 % (0-0.5); Lymphocytes Absolute Auto 1.83 K/mm3 (0.9-3.2); Lymphocytes Percent Auto 9.1 % (18.3-44.2); Mean Corpuscular HGB Conc 32.7 g/dl (32-36); Mean Corpuscular Hemoglobin 30.3 pg (26-34); Mean Corpuscular Volume 92.6 fl (80-100); Mean Platelet Volume 9.8 fl (7.4-10.4); Monocytes Absolute Auto 0.7 K/mm3 (0.1-0.6); Monocytes Percent Auto 3.2 % (2.6-8.5); Neutrophils Absolute Auto 17.3 K/mm3 (1.3-6.7); Neutrophils Percent Auto 86.4 % (45.5-73.1); Platelet Count Result 643 k/mm3 (150-375); Red Blood Count 4.89 M/mm3 (4.2-5.4); Red Cell Distribution Width 12.5 % (11.5-14.5)
[2023-03-29] MEDS: ONDANSETRON INJ 4 MG/2 ML VIAL IV PUSH (03:50)
[2023-03-29] MEDS: ACETAMINOPHEN 500 MG TABLET 1000 MG PO (03:51)
[2023-03-29] MEDS: HYDROmorphone HCL INJ (*CRX) 1 MG/ML SYR 0.5 MG IV PUSH (03:52)
[2023-03-29] MEDS: KETOROLAC 15 MG/ML VIAL (*BKC) IV PUSH (03:54)
[2023-03-29 04:02] LABS: Alanine Aminotransferase 27 U/L (6-35); Albumin Level 4.8 g/dL (3.5-5.1); Alkaline Phosphatase 61 U/L (38-126); Anion Gap 13 mmol/L (8-16); Aspartate Amino Transferase 32 U/L (14-36); Bilirubin,Total 0.5 mg/dL (0.2-1.3); Blood Urea Nitrogen 18 mg/dL (7-17); Calcium 9.3 mg/dL (8.4-10.2); Carbon Dioxide 23 mmol/L (22-30); Chloride 101 mmol/L (98-107); Estimated CRCL calculation 55 ml/min; Estimated Glomerular Filt Rate 51; Glucose 175 mg/dL (65-110); Lipase 74 U/L (23-300); Magnesium 1.6 mg/dL (1.6-2.3); Potassium 3.7 mmol/L (3.4-5.0); Sodium 137 mmol/L (137-145)
--- NOTE | 2023-03-29 05:49 | ED.GENADULT ---
HPI - General Adult General Chief complaint: Nausea/Vomiting/Diarrhea Stated complaint: n/v/d Time Seen by Provider: 03/29/23 03:13 History of Present Illness HPI narrative: This is a 57-year-old female presenting ED with a chief complaint of nausea vomiting diarrhea. At 3:00 p.m. patient started to have bowel belches that tasted like rotten eggs. This was after she had chicken livers and gives hurts for breakfast. Shortly after she developed nausea vomiting and diarrhea. She has been having subjective fever and chills and some crampy epigastric pain. Patient denies fevers, chest pain difficulty breathing or urinary symptoms. patient has no appetite. Related Data Home Medications Medication Instructions Recorded Confirmed ergocalciferol (vitamin D2) 1,250 50,000 unit PO WEEKLY 09/19/19 10/01/22 mcg (50,000 unit) capsule (Vitamin D2) fenofibrate 160 mg tablet 160 mg PO DAILY 09/19/19 10/01/22 levothyroxine 50 mcg tablet 50 mcg PO DAILY 09/19/19 10/01/22 simvastatin 10 mg tablet 10 mg PO DAILY 09/19/19 10/01/22 bupropion HCl 450 mg 24 hr tablet, 450 mg PO DAILY 08/06/22 10/10/22 extended release (Forfivo XL) clonazepam 0.5 mg tablet 0.25 mg PO QHS 08/06/22 10/01/22 multivitamin (Multiple Vitamins 1 tablet PO DAILY 08/06/22 10/01/22 tablet) nebivolol 5 mg tablet 5 mg PO DAILY 08/06/22 10/10/22 escitalopram oxalate 20 mg tablet 20 mg PO DAILY 10/01/22 10/01/22 (Lexapro) Allergies Allergy/AdvReac Type Severity Reaction Status Date / Time POTASSIUM CLAVULANATE AdvReac Severe c-diff Uncoded 10/10/22 06:57 PMFSH Past Medical History Medical History Back pain with history of spinal surgery Chronic pain COVID-19 10/2020 Encounter for screening colonoscopy Hypercholesteremia Hypothyroidism Obese Surgical History Surgical History History of cervical spinal surgery History of spinal surgery Hx of appendectomy Family History Family History Father , 1987 Cerebrovascular accident Mother Alive and well Social History Social History Years smoked: 20 Smoking status: Former smoker Tobacco type: cigarettes Second hand tobacco smoke exposure: Yes (spouse) Additional smoking assessment comments: had quit but now works an hour each directions to work Alcohol intake: current Alcohol use details: social Substance use: former Substance use type: former substance user and other Other substance usage details: alcohol Last use: 2001 Living arrangements: with family Occupation/Education: occupation Gender identity (if verbalized by the patient): Female Sexual Orientation (if Verbalized by the Patient): Straight or Heterosexual Spiritual care concerns: No Exam Narrative: APPEARANCE: No apparent distress. Head: atraumatic. EYES: EOMI, NOSE: Atraumatic NECK: Trachea midline RESPIRATORY: No increased rate of breathing , CTAB CARDIOVASCULAR: RRR, ABDOMINAL: abdomen is soft but diffusely, worse on the right than left. Point of care right upper quadrant ultrasound showed a distended gallbladder but no gallbladder wall thickening or pericholecystic fluid. MUSCULOSKELETAl: No obvious deformities NEURO: Alert. Moving 4/4 extremities SKIN:: Warm, dry. Normal color PSYCHIATRIC: Normal affect Course Vital Signs Vital signs: Vital Signs Temperature 98.2 F 03/29/23 02:37 Pulse Rate 85 03/29/23 02:37 Respiratory Rate 18 03/29/23 02:37 Blood Pressure 129/94 H 03/29/23 02:37 Pulse Oximetry 98 03/29/23 02:37 Oxygen Delivery Room Air 03/29/23 02:37 Temperature 98.2 F 03/29/23 02:37 Pulse Rate 75 03/29/23 06:31 Respiratory Rate 19 03/29/23 06:31 Blood Pressure 101/74 03/29/23 06:31 Pulse Oximetry 97 03/29/23 06:3
== END 2023-03-29 06:45 | disposition home or self-care (01) ==
PROVIDERS: Emergency Provider Emergency Medicine; PCP Physician Assistant
DX: K52.9 Noninfective gastroenteritis and colitis, unspecified (principal); E78.00 Pure hypercholesterolemia, unspecified; E03.9 Hypothyroidism, unspecified; E66.9 Obesity, unspecified; Z68.34 Body mass index [BMI] 34.0-34.9, adult; Z86.16 Personal history of COVID-19; Z87.891 Personal history of nicotine dependence; K56.0 Paralytic ileus; K44.9 Diaphragmatic hernia without obstruction or gangrene; K43.9 Ventral hernia without obstruction or gangrene
CPT/HCPCS: 36415; 74177; 80053; 83605; 83690; 83735; 85025; 93005; 96361; 96374; 96375; 99284; A9270; J1170; J1885; J2405; J7030; Q9967

== ENCOUNTER → 2023-04-22 15:57 | Outpatient (CLI) | payer OTHER, SELFPAY ==
--- NOTE | ~2023-04-22 | XR_ITS ---
XR lumbar spine min 4V 04/22/2023 16:22 Indication: Lumbar spondylosis Procedure: 5 views lumbar spine Comparison: 09/03/2019 Findings: There is disc narrowing at all lumbar levels with advanced facet hypertrophy. There is levo scoliosis centered at L3. There is grade 1 degenerative spondylolisthesis at L5-S1. No acute fracture or traumatic malalignment. Pedicles intact. Sacral foramen are symmetric. Impression: 1: Severe lumbar spondylosis with levoscoliosis. Reviewed, dictated and finalized at location L. Impression: 1: Severe lumbar spondylosis with levoscoliosis.
== END ==
PROVIDERS: PCP Nurse Practitioner Family; Visit Provider Nurse Practitioner Family
DX: M47.816 Spondylosis without myelopathy or radiculopathy, lumbar region (principal)
CPT/HCPCS: 72110

== ENCOUNTER → 2023-05-16 08:29 | Outpatient (CLI) | payer OTHER, SELFPAY ==
--- NOTE | ~2023-05-16 | MR_ITS ---
MRI of the lumbar spine Clinical History: Back pain Technique: Axial T2-weighted images, and sagittal T1-weighted, T2-weighted, and and T2 fat-sat images were acquired. COMPARISON: 06/07/2021 Findings: No acute fracture identified. 2 mm retrolisthesis of L4 over L5 present. There is extensive marrow edema about the L5-S1 disc space, presumably reactive due to underlying degenerative disc dis ease. No other bone marrow signal abnormality seen. At L1-L2, there is mild disc bulge, most prominent left foraminal region, with moderate facet arthrop athy. No central canal stenosis. There is severe left neural foraminal narrowing, and probable modera te right neural foraminal narrowing. At L2-L3, there is disc bulge and advanced facet arthropathy, resulting in mild central canal stenosi s. There is moderate to advanced right neural foraminal narrowing, and moderate left neural foraminal narrowing. At L3-L4, there is advanced degenerative disc narrowing. There is disc bulge with severe facet arthro barbara. There is minimal central canal stenosis. There is moderate to severe left neural foraminal phuong rowing, and advanced right neural foraminal narrowing. At L4-L5, there is moderate degenerative disc narrowing. There is mild disc bulge with advanced facet arthropathy. No violetta central canal stenosis. There is severe bilateral neural foraminal narrowing. At L5-S1, there is advanced degenerative disc narrowing. There is diffuse disc bulge with severe face t arthropathy. There is mild central canal stenosis. There is severe bilateral neural foraminal narro wing. Paravertebral soft tissues are unremarkable. Impression: Severe degenerative spondylosis throughout the lumbar spine, as detailed above. 2 mm retrolisthesis of L4 over L5. Reviewed, dictated and finalized at [facility]. Impression: Severe degenerative spondylosis throughout the lumbar spine, as detailed above. 2 mm retrolisthesis of L4 over L5.
== END ==
PROVIDERS: PCP Physician Assistant; Visit Provider Nurse Practitioner Family
DX: M43.06 Spondylolysis, lumbar region (principal); M54.16 Radiculopathy, lumbar region; Z98.890 Other specified postprocedural states
CPT/HCPCS: 72148

== ENCOUNTER → 2023-06-20 08:40 | Outpatient (CLI) | payer OTHER, SELFPAY ==
--- NOTE | ~2023-06-20 | MM_ITS ---
EXAMINATION: MM screening sayra BI w laurence HISTORY: Screening mammogram TECHNIQUE: Craniocaudal and mediolateral oblique 3-D tomosynthesis images were obtained and synthetic 2-D images were generated. CAD analysis was submitted and interpreted. COMPARISON: 03/25/2022, 08/2020, 06/25/2019, 09/17/2015 bilateral screening mammogram examinations BREAST PARENCHYMAL COMPOSITION: The breasts are almost entirely fatty. FINDINGS: Stable focal asymmetry in the lower inner left breast since 2016. There is no evidence of s uspicious mass, calcification, or architectural distortion to suggest malignancy in either breast. Th ere has been no suspicious interval change. IMPRESSION: 1. No mammographic evidence of malignancy. 2. Recommend routine screening mammography in one year. BI-RADS Category 2: Benign finding(s). Reviewed, dictated and finalized at location A. [facility]
== END ==
PROVIDERS: PCP Physician Assistant; Visit Provider Nurse Practitioner Obstetrics & Gynecology
DX: Z12.31 Encounter for screening mammogram for malignant neoplasm of breast (principal)
CPT/HCPCS: 77063; 77067

== ENCOUNTER → 2023-09-23 15:21 | Outpatient (CLI) | payer OTHER, SELFPAY ==
--- NOTE | ~2023-09-23 | CT_ITS ---
EXAMINATION: CT lumbar spine wo con DATE: 09/23/2023 15:59 INDICATION: Lumbar spondylosis. TECHNIQUE: Computed tomography (CT) of the lumbar spine was performed without intravenous contrast. A utomated exposure control and iterative reconstruction technique were employed. The dose-length produ ct was 797.11 mGy-cm. COMPARISON: CT abdomen and pelvis 03/13/16, lumbar spine MRI 05/16/2023 FINDINGS: Partially visualized is a chronic 2.5 cm mass in right adrenal gland measuring soft tissue attenuation, likely an adenoma. Aortic atherosclerosis is noted. There is 19 degrees levoscoliosis of lumbar spine. There is 3 mm anterolisthesis of L5 on S1. There is mild chronic anterior wedging of L 1 vertebral body. There is mildly decreased disc height at L1-L2, moderately decreased disc height at L2-L3, and severely decreased disc height from L3-L4 through L5-S1. The following disc levels are sp ecifically discussed: L1-L2: The disc is bulging. There is severe right and moderate left facet joint osteoarthritis. There is no neural foraminal stenosis. There is mild central canal stenosis. L2-L3: The disc is bulging. There is severe right and moderate left facet joint osteoarthritis. There is mild bilateral neural foraminal stenosis. There is mild central canal stenosis. L3-L4: The disc is bulging. There is severe bilateral facet joint osteoarthritis. There is moderate r ight and mild left neural foraminal stenosis. There is mild central canal stenosis. There is posterio r decompression. L4-L5: The disc is bulging. There is severe bilateral facet joint osteoarthritis. There is moderate b ilateral neural foraminal stenosis. There is mild central canal stenosis. There is posterior decompre ssion. L5-S1: The disc is bulging. There is severe bilateral facet joint osteoarthritis. There is moderate b ilateral neural foraminal stenosis. There is mild central canal stenosis. IMPRESSION: 1. Severe lumbar spondylosis. 2. Lumbar levoscoliosis. Reviewed, dictated and finalized at location A. K CASHIER
--- NOTE | ~2023-09-23 | XR_ITS ---
EXAMINATION: XR hip BI 2V w AP pelvis DATE: 09/23/2023 15:59 INDICATION: Bilateral hip pain TECHNIQUE: AP view the pelvis and two views of each hip were obtained. COMPARISON: 03/07/2021 FINDINGS: Bone alignment is normal. There is no fracture. There is mild osteoarthritis of the hips. T here is severe lower lumbar spondylosis. IMPRESSION: 1. Mild osteoarthritis of the hips. Reviewed, dictated and finalized at location F. R AND WEDGER
--- NOTE | ~2023-09-23 | XR_ITS ---
EXAMINATION: XR lumbar spine min 4V DATE: 09/23/2023 15:59 INDICATION: Low back pain TECHNIQUE: Anteroposterior and lateral in neutral, flexion and extension views of the lumbar spine, a nd cone-down lateral view of the lumbosacral junction were obtained. COMPARISON: 04/22/2023 FINDINGS: There are 5 mm of anterolisthesis of L5 on S1. No hypermobility is present with flexion or extension. There is severe loss of intervertebral disc space height at L3-4, L4-5, and L5-S1. The hailey tebral body heights are maintained. There are 22 degrees of lumbar levoscoliosis. There is no fractur e. There is severe facet joint osteoarthritis of the lower lumbar spine. IMPRESSION: 1. Lumbar levoscoliosis and severe spondylosis without acute findings. Reviewed, dictated and finalized at location F. 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
== END ==
PROVIDERS: PCP Physician Assistant; Visit Provider Neurological Surgery
DX: M43.06 Spondylolysis, lumbar region (principal); M41.86 Other forms of scoliosis, lumbar region; M16.0 Bilateral primary osteoarthritis of hip
CPT/HCPCS: 72110; 72131; 73521

== ENCOUNTER 2023-11-13 07:54 | Outpatient (CLI) | payer OTHER, SELFPAY ==
--- NOTE | ~2023-11-13 | MR_ITS ---
EXAMINATION: MR thoracic spine wo con DATE: 11/13/2023 08:27 INDICATION: Chronic mid to low back pain. Failed back syndrome. TECHNIQUE: Magnetic resonance imaging (MRI) of the thoracic spine was performed without intravenous c ontrast. COMPARISON: None FINDINGS: There is 10 degrees dextroscoliosis of thoracolumbar spine. Vertebral body heights are norm al in thoracic spine. There is mildly decreased disc height at many levels. There is moderately decre ased disc height and T10-T11 and T11-T12. There is multilevel facet joint osteoarthritis, severe at s everal levels. At T1-T2, there is a central protrusion with mild central canal stenosis. At T2-T3, th e disc is bulging with mild central canal stenosis. At T4-T5 and T5-T6, the discs are mildly bulging with mild central canal stenosis. At T10-T11, T11-T12, and T12-L1, the discs are bulging with mild ce ntral canal stenosis. There is multilevel mild neural foraminal stenosis bilaterally. On the right, t here is moderate neural foraminal stenosis at T4-T5, T5-T6, T8-T9, and T10-T11. On the left, there is moderate neural foraminal stenosis at T1-T2, T9-T10, and T10-T11. The spinal cord signal intensity i s normal. The conus medullaris is at L1. IMPRESSION: 1. Moderate thoracic spondylosis. 2. Thoracolumbar dextroscoliosis. Reviewed, dictated and finalized at location E.
== END 2023-11-13 07:55 ==
LOC: MICIMG 07:55
PROVIDERS: PCP Physician Assistant; Visit Provider Nurse Practitioner Family
DX: M43.04 Spondylolysis, thoracic region (principal); M41.85 Other forms of scoliosis, thoracolumbar region; M96.1 Postlaminectomy syndrome, not elsewhere classified
CPT/HCPCS: 72146

== ENCOUNTER 2024-11-12 09:25 | Outpatient (CLI) | payer OTHER, SELFPAY ==
--- NOTE | ~2024-11-12 | CT_ITS ---
CT of the Abdomen and pelvis: Indication: Renal mass Technique: 2.5 mm axial scans were obtained through the abdomen and pelvis prior to and following in travenous administration of 100 cc of Omnipaque 350. Dose reduction technique was used on this scan b y utilizing automated exposure control and iterative reconstruction technique. The dose-length produc t (DLP) was 2141.14 mGy-cm. COMPARISON: 03/29/2023 Findings: Scans through the lung bases are unremarkable. Moderate hiatal hernia noted. There is diffuse hepatic steatosis. The spleen, pancreas, gallbladder, and kidneys are within normal limits. Bilateral low-density adrenal nodules, right larger than left, are compatible with bilateral adenomas. No evidence of aortic aneurysm. No lymphadenopathy. No bowel obstruction or bowel wall thickening. There is no evidence to suggest acute appendicitis. Sm all fat-containing umbilical hernia noted. Images through the pelvis were performed. Urinary bladder unremarkable. No pelvic mass seen. No ascit es. Impression: Bilateral adrenal adenomas. No renal mass seen. Diffuse hepatic steatosis. Reviewed, dictated and finalized at [facility]. Impression: Bilateral adrenal adenomas. No renal mass seen. Diffuse hepatic steatosis.
--- OUTSIDE RECORDS SUMMARY | 2024-11-12 09:29 | XMS_ITS | Clinical Summary ---
Author Organization [facility] System Address [address] [place] [id number] Care Team Providers Care Nurse Paralegal Name Role Phone Rebecca Villalobos Primary Care Provider [phone] Allergies Active Allergy Reactions Criticality Noted Date Comments Amoxicillin-Pot Clavulanate Other (see comment) 08/30/2021 I got c-dif Medications simvastatin 10 MG tablet Take 10 mg by mouth nightly at bedtime. Around five pm Active fenofibrate 160 MG tablet Take 160 mg by mouth daily. 5pm Active levothyroxine 50 MCG tablet Take 50 mcg by mouth every morning. Active pantoprazole EC 40 MG tablet Take 40 mg by mouth daily. Active buPROPion XL (FORFIVO XL) 450 MG TABLET SR 24 HR 24 hr tablet Take 1 tablet by mouth daily. Active escitalopram 20 MG tablet Take 20 mg by mouth daily. Active Cholecalciferol (VITAMIN D) 125 MCG (5000 UT) Cap Take 1 tablet by mouth daily. Active NON FORMULARY Take 600 mg by mouth daily. procana cbd Active amoxicillin 500 MG capsule Take 500 mg by mouth Q6H. 09/03/2021 Active Active Problems Problem Noted Date Diagnosed Date Lumbar spondylosis 09/05/2021 Family History Medical History Relation Comments Multiple Sclerosis Brother Cancer Father colon, or prosta te Stroke Father No Known Problems Sister Relation Status Comments Brother Alive Father Mother Alive Sister Alive Social History Tobacco Use Types Packs/Day Years Used Date Smoking Tobacco: Some Days Cigarettes Smokeless Tobacco: Never Comments:situational, drive to work Alcohol Use Standard Drinks/Week Comments Not Currently 0 (1 standard drink = 0.6 oz pur e alcohol) once a month Comments No Sex and Gender Information Value Date Recorded Sex Assigned at Not on file 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 Gender Identity Not on file Sexual Orientation Not on file Last Filed Vital Signs Vital Sign Reading Time Taken Comments Blood Pressure 140/81 09/05/2021 3:00 PM PRODUCTION WORKER Pulse 82 09/05/2021 3:00 PM PRODUCTION WORKER Temperature 36.6 C (97.9 F) 09/05/2021 3:00 PM PRODUCTION WORKER Respiratory Rate 16 09/05/2021 3:00 PM PRODUCTION WORKER Oxygen Saturation 94% 09/05/2021 3: 00 PM PRODUCTION WORKER Inhaled Oxygen Concentration - - Weight 95.6 kg (210 lb 12.2 oz) 09/05/2021 9:27 AM PRODUCTION WORKER Height 162.6 cm (5' 4 ) 09/05/2021 9:27 AM PRODUCTION WORKER Body Mass Index 36.18 09/05/2021 9:27 AM PRODUCTION WORKER Plan of Treatment Health Maintenance Due Date Last Done Comments Cervical Cancer Screening Pa p Smear (Age 30 to 64) Every 3 Years 1966 Colorectal Cancer Screening Colonoscopy (10 Years) 1966 Annual Physical 1969 Pneumococcal Vaccine: Pediatrics (0 to 5 Years) and At-Risk Patients (6 to 49 Years) (1 of 2 - PCV) 1972 Hepatitis C 1984 Hepatitis B Vaccines (1 of 3 - 19+ 3-dose series) 1985 Cervical Cancer Screening Pa p with HPV Testing (Age 30 to 64) Every 5 Years 1996 Cervical Cancer Screening wi th HPV 1996 Mammogram Screening 2006 Zoster Vaccines (1 of 2) 2016 COVID-19 Vaccine (2023-2 5 season) 2024 06/17/2021, 09/12/2020, 08/14/2020 DTaP, Tdap and Td Vaccines ( 3 - Td or Tdap) 07/05/2024 07/05/2014, 11/27/2012 Meningococcal B Vaccine Aged Out No l onger eligible based on patient's age to complete this topic Meningococcal Vaccine Aged Out No kamala harika eligible based on patient's age to complete this topic RSV Immunizations Under 20 Months Aged Out No longer eligible b ased on patient's age to complete this topic Insurance [employer] Advance Directives Documents on File Type Date Recorded 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
--- OUTSIDE RECORDS SUMMARY | 2024-11-12 09:29 | XMS_ITS | Encounter Summary ---
Author Organization [facility] Facility Care Team Providers Care Cleaning Crew Member Name Role Phone Rebecca Villalobos Primary Care Provider [phone] Brown Martinez MD Unavailable [phone] Encounter Details Date Type Department Care Team (Latest Contact Info) Description 11/10/2015 Orders Only [facility] ProviderGiovani MD [address] [place] [id number] Social History Tobacco Use Types Packs/Day Years Used Date Smoking Tobacco: Never Assessed Comments Unknown Sex and Gender Information Value Date Recorded Sex Assigned at Not on file Legal Sex Female 8:20 AM CDT Gender Identity Female 11/07/2020 9:20 AM CDT Sexual Orientation Straight 11/07/2020 9: 20 AM CDT documented as of this encounter Plan of Treatment Not on file documented as of this encounter Procedures Procedure Name Priority Date/Time Associated Diagnosis Comments SCAN - LABS 11/28/2015 12:00 AM CDT documented in this encounter Results * SCAN - LABS (11/28/2015 12:00 AM CDT) Narrative 11/28/2015 12:00 AM CDT Ordered by an unspecified provider. Historical Provider Final Res ult documented in this encounter Visit Diagnoses Not on filedocumented in this encounter Additional Health Concerns Infection Onset Date Last Indicated Resolved Time COVID19 11/08/2020 11/08/2020 11/22/2020 3:05 AM CDT COVID: Recovered Comment:Added based on recent COVID infection. 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
--- OUTSIDE RECORDS SUMMARY | 2024-11-12 09:29 | XMS_ITS | Data Portability ---
Author Organization [facility] Address [address] [place] [address] Care Team Providers Care Production Checker Name Role Phone JOY FONTANA Primary Care Provider Assessment Encounter Date Assessment Date Assessment LastModified by Organization Details LastModified Time 04/21/2023 04/21/2023 Annual gynecological exam performed. Patient will come back in a year unless there are new symptoms. [email or web address] Not available 04/21/2023 17:37:13 Plan of Treatment Reminders Order Date Submit Date Provider Last Modified By Organization Details Last Modified Time Details Appointments None recorded. Lab None recorded. Referral None recorded. Procedures None recorded. Surgeries None recorded. Imaging MAMMO, screening, bilateral 2022 023 [facility], [address], [place], [address], 3 10:35:06 Medication Orders None recorded. Patient TargetsNo targets recorded. Patient InstructionsNo instructions recorded. Reason for Referral None Reported. Results Created Date Observation Date Name Description Value Unit Range Abnormal Flag Note LastModifiedBy Organization Detail LastModifiedTime 01/30/20 21 01/29/2021 IMAGE GUIDE D PAP AND HPV REGAR DLESS image guided Pap, HPV regardless of Pap result SEE RESULT S BELOW CASE REPOR T: Cytol ogy Gynec ologi param Repor t Case: [id number] Autho ricamilon g Provi kevin: Jael Jensen CNM Colle cted: 01/29 1502 Order ing Locat ion: [place] Patho logy Recei andrea: 01/29 2350 First Scree n: Liza Reese Speci men: Scree chang Pap - Image d, Cervi x STATE MENT OF ADEQU ACY: Satis facto ry for evalu ation Trans forma tion zone compo nent canno t be defin itive ly ident ified due to the prese nce of atrop hy or other hormo nal martin es FINAL DIAGN OSIS: Negat bonifacio for Intra epith elial Lesio n or Lorraine morris (NIL) Atrop hic cell hollie rn Elect gayle arellano fred d by Liza Reese on 021 at 4:49 PM ----- ----- ----- ----- ----- ----- ----- ----- ----- ----- ----- ----- ----- ----- ----- ----- ----- ---- HPV RESUL TS: HPV mRNA E6/E7 : No HPV mRNA Detec jenelle NOTE: This high risk HPV mRNA assay detec ts fourt een high- risk HPV types (16, 18, 31, 33, 35, 39, 45, 51, 52, 56, 58, 59, 66, 68) witho ut diffe renti ation . CHART ABLE COMME NT: Note: This speci men was revie wed by a Cytot echno logis t and/o r Patho logis t (as indic ated in this repor t) after evalu ation using the Thinp rep Imagi ng Syste m. CLINI PARAM INFOR MATIO N: Menst rual Statu s: LMP (if appli cable ): 008 Clini param Histo ry/Pr eviou s Pap: Type of Neopl faith (if appli cable ): Other Histo ry: Hormo josh (if appli cable ): PAP EDUCA DULCE L NOTE: The Pap Test is a scree chang test with an inher ent false negat bonifacio rate. Liqui d-bas e sampl ing may decre ase, but will not elimi lj, false negat bonifacio resul ts. A negat bonifacio resul t does not precl ude the prese nce and/o r devel opmen t of disea se, since the prese nce of abnor mal cells in the sampl e depen ds on the locat ion of the lesio n and sampl ing techn ique. Kathia nued regul ar scree chang is the best metho d of cance r preve ntion . If repor jenelle cytol ogic findi ng do not corre late with physi param and/o r histo rical findi ngs, furth er inves tigat ion is recom dede d, as clini drew warra nted. Not Available [facility] (Lab) [address], [place], [address], 01/30/2021 22:39:44 01/30/20 21 01/29/2021 CULTU RE: URINE result report SEE RESULT S BELOW Test: Cultu re: Urine Speci men Sourc e: Urine Voide d Speci men Type: Urine Speci men Date: 021 3:02 PM Resul t Date: 021 9:36 PM Resul t Statu s: Final resul t Abnor mal: No Resul ting Lab: [facility] [address] [facility] [address] Tel: CULTU RE ----- ----- ----- --- No growt h in 1 day (dete ction level of 10,00 0 colon ies / ml.) Not Available [facility] (Lab) [address], [place], [address], 01/30/2021 22:39:45 01/30/20 21 01/29/2021 urina lysis , dipst ick Leukocytes +1 Not Available [facility] [address], [place], [address], 01/29/2021 16:28:44 01/30/20 21 01/29/2021 urina lysis , dipst ick Nitrite NORMAL Not Available [address] [place], [address], 01/29/2021 16:28:44 01/30/20 21 01/29/2021 urina lysis , dipst ick Urobilinogen NORMAL Not Available [facility] [address], [place], [address], 01/29/2021 16:28:44 01/30/20 21 01/29/2021 urina lysis , dipst ick Protein TRACE Not Available [facility] [address], [place], [address], 01/29/2021 16:28:44 01/30/20 21 01/29/2021 urina lysis , dipst ick pH NORMAL Not Available [facility] [address], [place], [address], 01/29/2021 16:28:44 01/30/20 21 01/29/2021 urina lysis , dipst ick Blood + Not Available [facility] [address], [place], [address], 01/29/2021 16:28:44 01/30/20 21 01/29/2021 urina lysis , dipst ick Specific Powell NORMAL Not Available [facility] [address], [place], [address], 01/29/2021 16:28:44 01/30/20 21 01/29/2021 urina lysis , dipst ick Ketone NORMAL Not Available [facility] [address], [place], [address], 01/29/2021 16:28:44 01/30/20 21 01/29/2021 urina lysis , dipst ick Bilirubin NORMAL Not Available [facility] gonzalo [address], [place], [address], 01/29/2021 16:28:44 01/30/20 21 01/29/2021 urina lysis , dipst ick Glucose NORMAL Not Available [facility] [address], [place], [address], 01/29/2021 16:28:44 01/30/20 21 01/29/2021 urina lysis , dipst ick Appearance NORMAL Not Available [facility] teresita [address], [place], [address], 01/29/2021 16:28:44 01/30/20 21 01/29/2021 urina lysis , dipst ick Color NORMAL Not Available [facility] [address], [place], [address], 01/29/2021 16:28:44 04/23/20 21 04/23/2021 URINA LYSIS , WITH MICRO SCOPI C color, urine Dark Yellow colorl ess, light yellow , yellow , dark yellow , straw Possi ble color inter feren ce for bilir ubin, urobi linog en, nitri te, and leuko cyte kallie ase tests . Not Available [facility] (Lab) [address], [place], [address], 04/25/2021 00:22:53 04/23/20 21 04/23/2021 URINA LYSIS , WITH MICRO SCOPI C clarity, urine Cloudy Not Available [facility] (Lab) [address] , [place], [address], 04/25/2021 00:22:53 04/23/20 21 04/23/2021 URINA LYSIS , WITH MICRO SCOPI C glucose, urine Negati ve mg/dL negati ve Not Available [facility] (Lab) [address] [place], [address], 04/25/2021 00:22:53 04/23/20 21 04/23/2021 URINA LYSIS , WITH MICRO SCOPI C bilirubin, urine Negati ve mg/dL negati ve Not Available [facility] (Lab) [address] [facility], [place], [address], 04/25/2021 00:22:53 04/23/20 21 04/23/2021 URINA LYSIS , WITH MICRO SCOPI C ketones, urine Trace mg/dL negati ve abnormal Not Available [facility] (Lab) [address] [facility] [address], [place], [address], 04/25/2021 00:22:53 04/23/20 21 04/23/2021 URINA LYSIS , WITH MICRO SCOPI C pH, urine 5.0 . 5.0-9. 0 Not Available [facility] (Lab) [address] [facility] [address] [facility], [place], [address], 04/25/2021 00:22:53 04/23/20 21 04/23/2021 URINA LYSIS , WITH MICRO SCOPI C specific gravity, urine 1.028 . 1.001- 1.035 Not Available [facility] (Lab) [address] [facility] [address], [place], [address], 04/25/2021 00:22:53 04/23/20 21 04/23/2021 URINA LYSIS , WITH MICRO SCOPI C blood, urine Negati ve negati ve Not Available [facility] (Lab) [address], [place], [address], 04/25/2021 00:22:53 04/23/20 21 04/23/2021 URINA LYSIS , WITH MICRO SCOPI C protein, urine 100 mg/dL negati ve abnormal Not Available [facility] (Lab) [address] [facility] [address], [place], [address], 04/25/2021 00:22:53 04/23/20 21 04/23/2021 URINA LYSIS , WITH MICRO SCOPI C urobilinogen , urine <2.0 mg/dL <2.0 Not Available [facility] (Lab) [address], [place], [address], 04/25/2021 00:22:53 04/23/20 21 04/23/2021 URINA LYSIS , WITH MICRO SCOPI C nitrite, urine Negati ve negati ve Not Available [facility] (Lab) [address], [place], [address], 04/25/2021 00:22:53 04/23/20 21 04/23/2021 URINA LYSIS , WITH MICRO SCOPI C leukocyte esterase, urine Trace negati ve abnormal Not Available [facility] (Lab) [address], [place], [address], 04/25/2021 00:22:53 04/23/20 21 04/23/2021 URINA LYSIS , WITH MICRO SCOPI C WBC, urine 10-14 /hpf none, 0-5 abnormal Not Available [facility] (Lab) [address], [place], [address], 04/25/2021 00:22:53 04/23/20 21 04/23/2021 URINA LYSIS , WITH MICRO SCOPI C RBC, urine 0-2 /hpf none, 0-2 Not Available [facility] (Lab) [address], [place], [address], 04/25/2021 00:22:53 04/23/20 21 04/23/2021 URINA LYSIS , WITH MICRO SCOPI C bacteria, urine None /hpf none Not Available [facility] (Lab) [address], [place], [address], 04/25/2021 00:22:53 04/23/20 21 04/23/2021 URINA LYSIS , WITH MICRO SCOPI C squamous epithelial cells, urine Few /hpf none abnormal Not Available [facility] (Lab) [address], [place], [address], 04/25/2021 00:22:53 04/23/20 21 04/23/2021 URINA LYSIS , WITH MICRO SCOPI C non-squamous epi, urine Trace /hpf none abnormal Not Available [facility] (Lab) [address], [place], [address], 04/25/2021 00:22:53 04/23/20 21 04/23/2021 URINA LYSIS , WITH MICRO SCOPI C mucus, urine Many /hpf none, trace, few abnormal Not Available [facility] (Lab) [address], [place], [address], 04/25/2021 00:22:53 04/23/20 21 04/23/2021 URINA LYSIS , WITH MICRO SCOPI C hyaline cast, urine >=50 /lpf none, 0-2 abnormal Not Available [facility] (Lab) [address], [place], [address], 04/25/2021 00:22:53 04/23/20 21 04/23/2021 CULTU RE: URINE result report SEE RESULT S BELOW Test: Cultu re: Urine Speci men Sourc e: Urine Voide d Speci men Type: Urine Speci men Date: 2020 3:32 PM Resul t Date: 2020 11:18 PM Resul t Statu s: Final resul t Abnor mal: No Brianna mcintyre Lab: [facility] [address] [facility] [address] Tel: CULTU RE ----- ----- ----- --- Cultu re resul t (>=3 organ isms prese nt) indic ates possi ble conta minat ion. Repea t cultu re if sympt oms indic ate. 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 Atrop hic cell hollie lantigua. Elect gayle arellano fred d by Dwayne stuart, Malka gonsalez, CT on 2022 at 7:22 PM ----- ----- ----- ----- ----- ----- ----- ----- ----- ----- ----- ----- ----- ----- ----- ----- ----- ---- HPV RESUL TS: HPV mRNA E6/E7 : No HPV mRNA Detec jenelle NOTE: This high risk HPV mRNA assay detec ts fourt een high- risk HPV types (16, 18, 31, 33, 35, 39, 45, 51, 52, 56, 58, 59, 66, 68) witho ut diffe renti ation . COMME NT: This speci men was revie wed by a Cytot echno logis t and/o r Patho logis t (as indic ated in this repor t) after evalu ation using the Thinp rep Imagi ng Syste m. CLINI PARAM INFOR MATIO N: Menst rual Statu s: LMP (if appli cable ): Clini param Histo ry/Pr eviou s Pap: Type of Neopl faith (if appli cable ): Signi fican t Clini param Findi ngs: Other Histo ry: Hormo josh (if appli cable ): PAP EDUCA DULCE L NOTE: The Pap Test is a scree chang test with an inher ent false negat bonifacio rate. Liqui d-bas ed sampl ing may decre ase, but will not elimi lj, false negat bonifacio resul ts. A negat bonifacio resul t does not precl ude the prese nce and/o r devel opmen t of disea se, since the prese nce of abnor mal cells in the sampl e depen ds on the locat ion of the lesio n and sampl ing techn ique. Kathia nued regul ar scree chang is the best metho d of cance r preve ntion . If repor jenelle cytol ogic findi ng do not corre late with physi param and/o r histo rical findi ngs, furth er inves tigat ion is recom dede d, as clini drew warra nted. Not Available [facility] (Lab) [address], [place], [address], 04/24/2023 20:26:04 03/25/20 22 03/25/2022 MAMMO , scree chang, bilat eral No observ ation record ed. [facility] [address], [place], [address], 03/28/2022 22:54:42 03/26/20 22 03/25/2022 DEXA No observ ation record ed. [facility] [address], [place], [address], 03/28/2022 22:54:51 05/26/20 22 DEXA No observ ation record ed. [email or web address] [facility] [address], [place], [address], 05/26/2022 12:50:11 06/22/20 23 06/20/2023 MAMMO , scree chang, bilat eral No observ ation record ed. [facility] [address], [place], [address], 06/25/2023 07:00:02 Result Notes None recorded. Problems Name Problem SNOMED Code Status Onset Date Resolution Date Notes Provider Name and Address Organization Details Recorded Time Camryn baker medical examinat ion Completed 201301/29/2021 Gynecolo gical Examinat ion;Cyril rded Elsewher e: No Locat ion: [facility] S ource: EHR Lathe Set Up Person kirt: N Juleeti ce ID: 0001 Colin lable Time: 03:30:00 PM Valorie Marino [facility], [facility] 13:32:47 Body mass index 30+ - obesity [id number] Completed 201401/29/2021 Body mass index (BMI) 34.0-34. 9, adult;Re corded Elsewher e: No Locat ion: [facility] S ource: EHR Lathe Set Up Person kirt: N Juleeti ce ID: 0001 Colin lable Time: 04:45:00 PM Valorie Marino [facility], [facility] 13:32:[address] Concept Completed 201401/29/2021 Encntr for hearing care professional exam (general ) (routine ) w/o abn findings ;Recorde d Elsewher e: No Locat ion: [facility] S ource: EHR Lathe Set Up Person krit: N Juleeti ce ID: 0001 Colin lable Time: 04:45:00 PM Valorie Marino [facility], [facility] 13:32:46 Evaluati on finding Completed 201601/29/2021 Hematuri a, unspecif ied;Cyril rded Elsewher e: No Locat ion: [facility] S ource: EHR Lathe Set Up Person kirt: N Juleeti ce ID: 0001 Colin lable Time: 05:00:00 PM Valorie Marino [facility] 13:32:33 Screenin g for malignan t neoplasm of rectum Completed 201401/29/2021 Encounte r for screenin g for malignan t neoplasm of rectum;R ecorded Elsewher e: No [facility]: E[facility] Lathe Set Up Person kirt: N Practi ce ID: 0001 Colin lable Time: 04:45:00 PM Valorie Marino leny [facility] 1 13:32:44 Adult health examinat ion Completed 201301/29/2021 ROUTINE MEDICAL EXAM;Rec orded Elsewher e: No Locat ion: [facility] Juleeti ce ID: 0001 Colin lable Time: 03:30:00 PM Valorie Marino leny [facility] 13:32:29 Screenin g for malignan t neoplasm of cervix Completed 201201/29/2021 Screenin g for malignan t neoplasm s of the cervix;R ecorded Elsewher e: No Locat ion: [facility]: N Juleeti ce ID: 0001 Colin lable Time: 02:30:00 PM Valorie michele [facility] 13:32:41 Menopaus al symptom [id number] Completed 201201/29/2021 Menopaus al or female climacte ghassan states;R ecorded Elsewher e: No Locat ion: [facility] S ource: EHR Lathe Set Up Person kirt: N Juleeti ce ID: 0001 Colin lable Time: 02:30:00 PM Valorie michele [facility] 13:32:[address] Concept Completed 201601/29/2021 Encounte r for general adult medical exam w abnormal findings ;Practic e ID: 0001 Valorie Marino leny [facility] 13:32:38 Problem Notes None recorded. Procedures Surgical History Date Name Laterality Status Provider Name and Address Organization Details Recorded Time 09/26/20 23 Date of Last Pap Smear completed [facility] 04/30/2023 11:14:20 10/11/19 23 completed [facility] 04/21/2023 17:38:32 10/11/19 23 Date of Last Colonoscopy completed [facility] 04/21/2023 17:38:32 10/11/19 23 Colonoscopy completed [facility] 04/30/2023 11:18:37 08/27/19 22 surgical manipulation of lumbar spine completed [facility] 04/30/2023 11:18:24 10/05/19 21 Date of Last Mammogram completed [facility] 01/29/2021 13:07:35 07/27/19 13 operation on lumbar spine completed [facility] 01/29/2021 16:38:08 07/27/19 11 prosthetic replacement of cervical intervertebral disc completed [facility] 01/29/2021 16:36:53 07/27/19 08 Appendectomy completed [facility] 01/29/2021 16:35:22 07/27/18 97 prosthetic replacement of cervical intervertebral disc completed [facility] 01/29/2021 16:36:46 07/27/18 93 cryosurgery completed [facility] 01/29/2021 16:38:51 07/27/18 88 termination of completed [facility] 04/30/2023 11:17:24 Imaging Results Imaging Date Name Status LastModified by Organiz ation Details LastModified Time 03/25/2022 MAMMO, screening, bilateral completed [facility] [address], [place], [address], 03/28/2022 22:54:42 03/25/2022 DEXA completed [facility] [address], [place], [address], 03/28/2022 22:54:51 05/26/2022 DEXA completed [email or web address] [facility] [address], [place], [address], 05/26/2022 12:50:11 06/20/2023 MAMMO, screening, bilateral completed [facility] [address], [place], [address], 06/25/2023 07:00:02 Procedure Notes None recorded. Medical Equipment None Reported. Allergies Allergen ID Allergen Name Allergen Category Reaction Reaction Severity Criticality Documentation Date Start Date Code Code System Note Provider Name and Address Organization Details Recorded Time 22333 Augmentin medicatio n Not available Not available Not available 04/30/2023 34864 2 RxNorm Valorie Marino [place], [place] - [facility] 3 11:21:38 Medications Name Sig Start Date Stop Date Status Note LastModified by Organization Details LastModified Time buspirone 5 mg tablet take 1 tablet by oral route 3 times every day 02/21 completed Prescrib ed Ema e: Yes Loca tion: [facility] M odify By: pako guillory DateTime : 02/16/20 13 02:30:00 PM Not Available Not Available Not Available rabeprazo le 20 mg tablet,de layed release TAKE 1 TABLET BY MOUTH TWICE DAILY active Not Available Not Available No t Available clindamyc in HCl 300 mg capsule TAKE ONE CAPSULE BY MOUTH THREE TIMES DAILY UNTIL ALL TAKEN 01/29 completed Not Available Not Available Not Available ibuprofen 800 mg tablet TAKE 1 TABLET BY MOUTH THREE TIMES DAILY FOR 7 DAYS NEEDED FOR PAIN active Not Available Not Available No t Available clonazepa m 0.5 mg tablet TAKE 1/2 TABLET BY MOUTH TWICE DAILY NEEDED active Not Available Not Available No t Available gabapenti n 400 mg capsule TAKE ONE CAPSULE BY MOUTH TWICE DAILY 01/29 completed Prescrib ed Elsewher e: No Locat ion: Nolvia sánchez [facility] odify By: loni guillory DateTime : 02/05/20 17 08:29:23 AM Not Available Not Available Not Available simvastat in 10 mg tablet active Not Available Not Available Not Available acyclovir 400 mg tablet active Not Available Not Available Not Available omeprazol e 40 mg capsule,d elayed release TAKE 1 CAPSULE BY MOUTH TWICE DAILY active Not Available Not Available No t Available acetamino phen 500 mg tablet TAKE 2 TABLET BY MOUTH THREE TIMES DAILY NEEDED FOR PAIN FOR 7 DAYS active Not Available Not Available No t Available spironola ctone 25 mg tablet take 1 tablet by oral route every day 05/08 completed Prescrib ed Elsewher e: Yes Loca tion: [facility] odify By: loni guillory DateTime : 02/16/20 13 02:30:00 PM Not Available Not Available Not Available Percocet 10 mg-325 mg tablet take 1 tablet by oral route every 6 hours as needed 09/02 completed Prescrib ed Elsewher e: Yes [facility] By: kalin cordoba DateTime : 02/16/20 13 02:30:00 PM Not Available Not Available Not Available Coumadin 5 mg intraveno us solution inject 1 millilit er by intraven ous route every day over as an IV bolus 09/02 completed Prescrib ed Elsewher e: Yes Loca tion: [facility] odify By: kalin hooksuntorlando DateTime : 02/16/20 13 02:30:00 PM Not Available Not Available Not Available simvastat in 5 mg tablet take 1 tablet by oral route every day in the evening 01/29 completed Prescrib ed Elsewher e: Yes Loca tion: [facility] odify By: kalin Sánchez ncounter DateTime : 02/16/20 13 02:30:00 PM Not Available Not Available Not Available levothyro xine 50 mcg tablet TK 1 T PO QD active Not Available Not Available No t Available pantopraz ole 40 mg tablet,de layed release active Not Available Not Available Not Available polymyxin B sulfate 10,000 unit-trim ethoprim 1 mg/mL eye drops INSTILL 1 DROP IN LEFT EYE EVERY 3 HOURS WHILE AWAKE FOR 7 DAYS DIRECTED active Not Available Not Available No t Available Wellbutri n 75 mg tablet take 1 tablet by oral route 3 times every day 04/21 completed Prescrib ed Elsewher e: Yes Loca tion: [facility] odify By: kalin cordoba DateTime : 09/02/19 14 09:00:00 AM Not Available Not Available Not Available hydrochlo rothiazid e 25 mg tablet active Not Available Not Available Not Available gabapenti n 100 mg capsule take 3 Capsule (300MG) by oral route 2 times every day 02/21 completed Prescrib ed Elsewher e: No Locat ion: [facility] odify By: hi Staton nter DateTime : 09/02/19 14 09:00:00 AM Not Available Not Available Not Available methylpre dnisolone 4 mg tablets in a dose pack FPD 01/29 completed Not Available Not Available Not Available Prozac 10 mg capsule take 1 Capsule by oral route every day active Prescrib ed Elsewher e: Yes Loca tion: [facility] odify By: loni guillory DateTime : 05/08/20 15 04:45:00 PM Not Available Not Available Not Available ondansetr on 4 mg disintegr ating tablet DISSOLVE 1 TABLET ON THE TONGUE EVERY 8 HOURS NEEDED FOR NAUSEA OR VOMITING active Not Available Not Available No t Available tobramyci n 0.3 %-dexamet hasone 0.1 % eye drops,stiven pension SHAKE LIQUID AND INSTILL 1 DROP IN LEFT EYE FOUR TIMES DAILY FOR 7 DAYS active Not Available Not Available No t Available oxycodone 5 mg tablet TAKE 1 TABLET BY MOUTH EVERY 4 HOURS NEEDED FOR PAIN active Not Available Not Available No t Available Colace 50 mg capsule take 1 capsule by oral route every day at bedtime as needed 09/02 completed Prescrib ed Elsewher e: Yes Loca tion: [facility] odify By: kalin cordoba DateTime : 02/16/20 13 02:30:00 PM Not Available Not Available Not Available escitalop enrique 20 mg tablet TAKE 1 TABLET BY MOUTH EVERY DAY active Not Available Not Available No t Available Cymbalta 20 mg capsule,d elayed release take 3 Capsule by oral route every day 05/08 completed Prescrib ed Elsewher e: Yes Loca tion: Nolvia sánchez [facility] odify By: loni guillory DateTime : 02/16/20 13 02:30:00 PM Not Available Not Available Not Available eszopiclo ne 2 mg tablet TAKE ONE TABLET BY MOUTH AT BEDTIME DIRECTED active Not Available Not Available No t Available fenofibra te 160 mg tablet active Not Available Not Available Not Available valacyclo vir active Not Available Not Available Not Available THSC Levothyro xine Sodium active Not Available Not Available Not Available pantopraz ole 01/29 completed Not Available Not Available Not Available Fenofibra te 01/29 completed Not Available Not Available Not Available Lipofen 50 mg capsule take 1 capsule by oral route every day with a meal 01/29 completed Prescrib ed Elsewher e: Yes Loca tion: Candice gonzalo [facility] odify By: kalin cordoba DateTime : 02/16/20 13 02:30:00 PM Not Available Not Available Not Available nebivolol 5 mg tablet active Not Available Not Available Not Available nebivolol active Not Available Not Ela ilable Not Available Protonix 40 mg granules delayed-r elease packet take 1 packet by oral route every day mixed in 1 teaspoon ful of applesau ce or apple juice 01/29 completed Prescrib ed Elsewher e: Yes Loca tion: Nolvia sánchez [facility] odify By: kalin cordoba DateTime : 02/16/20 13 02:30:00 PM Not Available Not Available Not Available Tirosint 13 mcg capsule take 1 capsule by oral route every day 01/29 completed Prescrib ed Elsewher e: Yes Loca tion: Nolvia sánchez [facility] odify By: shilo colon DateTime : 01/21/20 17 05:00:00 PM Not Available Not Available Not Available sodium,po tassium,m ag sulfates 17.5 gram-3.13 gram-1.6 gram oral soln MIX AND DRINK DIRECTED active Not Available Not Available No t Available Viibryd 10 mg tablet take 1 by Oral route every 24 hours for 30 09/02 completed Prescrib ed Elsewher e: Yes Loca tion: [facility] odify By: kalin cordoba DateTime : 02/16/20 13 02:30:00 PM Not Available Not Available Not Available Gralise 600 mg tablet,ex tended release take 3 tablet (1800MG) by oral route every day with the evening meal 09/02 completed Prescrib ed Elsewher e: No Locat ion: [facility] odify By: donnadical Encount er DateTime : 09/02/19 14 09:00:00 AM Not Available Not Available Not Available Forfivo XL 450 mg 24 hr tablet, extended release TAKE 1 TABLET BY MOUTH EVERY DAY active Not Available Not Available No t Available Acid Director Of Acquisitions (omeprazo le) active Not Available Not Available Not Available Ozempic 0.25 mg or 0.5 mg (2 mg/1.5 mL) subcutane ous pen injector INJECT 0.5 MG UNDER THE SKIN EVERY 7 DAYS active Not Available Not Available No t Available Adult Multivita min Extra Vitamin D3 200 mcg chewable tablet active Not Available Not Available Not Available cannabidi ol (CBD) extract active Not Available Not Available Not Available Ozempic 1 mg/dose (4 mg/3 mL) subcutane ous pen injector INJECT 1MG UNDER THE SKIN EVERY 7 DAYS active Not Available Not Available No t Available Vitals Date Recorded Body height Body mass index (BMI) Body weight Systolic blood pressure Diastolic blood pressure Provider Name and Address Organization Details Last Updated DateTime 01/29/2021 162.56 cm 35.7 kg/m2 17387.21 g 151 mm[Hg] 102 mm[Hg] Valorie Marino [facility] 13:06:42 Date Recorded Body height Body mass index (BMI) Body weight Systolic blood pressure Diastolic blood pressure Provider Name and Address Organization Details Last Updated DateTime 04/21/2023 162.56 cm 34.3 kg/m2 43965.47 g 120 mm[Hg] 76 mm[Hg] Valorie Marino [facility] 3 17:37:41 Social History Question Answer Notes LastModified by Organizat ion Details LastModified Time Do You Have An Advance Directive? No [email or web address] Information not available 01/29/2021 What Is Your Level Of Alcohol Consumption? Occasional Information not available 01/29/2021 How Many Years Have You Consumed Alcohol? 40 [email or web address] Information not available 01/29/2021 Are You Blind Or Do You Have Difficulty Seeing? No [email or web address] Information not available 01/29/2021 What Is Your Level Of Caffeine Consumption? Moderate [email or web address] Information not available 01/29/2021 How Much Tobacco Do You Chew? None [email or web address] Information not available 01/29/2021 In The 14 Days Before Symptom Onset, Have You Had Close Contact With A Laboratory-confir med COVID-19 While That Case Was Ill? No [email or web address] Information not available 01/29/2021 In The 14 Days Before Symptom Onset, Have You Had Close Contact With A Person Who Is Under Investigation For COVID-19 While That Person Was Ill? No [email or web address] Information not available 01/29/2021 Have You Been To An Area Known To Be High Risk For COVID-19? No [email or web address] Information not available 01/29/2021 Are You Deaf Or Do You Have Serious Difficulty Hearing? No [email or web address] Information not available 04/21/2023 What Type Of Diet Are You Following? REGULAR [email or web address] Information not available 01/29/2021 What Is The Highest Grade Or Level Of School You Have Completed Or The Highest Degree You Have Received? 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 Yes [email or web address] Information not available 01/29/2021 Do You Use Protection During Sex? No [email or web address] Information not available 01/29/2021 Do You Use Your Seat Belt Or Car Seat Routinely? Yes [email or web address] Information not available 01/29/2021 Do You Have Smoke And Carbon Monoxide Detectors In Your Home? Yes [email or web address] Information not available 01/29/2021 At What Age Did You Start Smoking Tobacco? 14 [email or web address] Information not available 01/29/2021 How Much Tobacco Do You Smoke? No [email or web address] Information not available 01/29/2021 Do You Feel Stressed (tense, Restless, Nervous, Or Anxious, Or Unable To Sleep At Night)? [id number] [email or web address] Information not available 01/29/2021 Do You Use Any Illicit Or Recreational Drugs? No [email or web address] Information not available 01/29/2021 Do You Use Sunscreen Routinely? No [email or web address] Information not available 01/29/2021 How Many Years Have You Smoked Tobacco? 30 [email or web address] Information not available 01/29/2021 Have You Used IV Drugs? No [email or web address] Information not available 01/29/2021 Sex: Unknown Functional Status Question Answer Note LastModified by Organization D etails LastModified Time Are you able to walk? YESWOREST [email or web address] Information not available 01/29/2021 What is your exercise level? None [email or web address] Information not available 01/29/2021 Mental Status None recorded. Family History Relationship Description Onset Age of this Age Resolved Age Notes LastModified by Organization Details LastModified Time Maternal Grandmother Heart disease [email or web address] Not available 01/29 13:07:33 Maternal Grandmother Diabetes mellitus [email or web address] Not available 01/29 13:07:33 Father Malignant tumor of colon [email or web address] Not available 01/29 13:07:33 Father Hyperlipidem ia [email or web address] Not available 2022 17:21:24 Brother Multiple sclerosis [email or web address] Not available 01/29 13:07:33 Mother Hyperlipidem ia [email or web address] Not available 2022 17:21:24 Notes:Father: Hyperlipidemia , Cancer, colon Maternal grandmother: Diabetes mellitus Mother: Hyperlipidemia Medical History Condition Response Allergies (Food, seasonal, environmental ) N Other N Breast Cancer N Drug/Latex Allergies/Reactions Y Blood Transfusion N Dermatologic Disorders N Lung Disease N Defects or Inherited Disease N Breast Problem N Gestational Diabetes N Hematologic disorders N Anesthesia Complications N Deep Vein Thrombosis Y Polycystic ovary syndrome N Anxiety Disorder Y Autoimmune disease N Arthritis Y Infertility N Polyps N Acid Reflux (GERD) Y History of abnormal pap Y Cancer N Stroke N Varicosities N Neurologic/Epilepsy Y Endometriosis N High Cholesterol Y Headaches N Fibromyalgia N Kidney Disease N Heart Problems N Kidney or Bladder Problems N Thyroid Problems Y GI Problems N Eating Disorder N Anemia N Art (IVF or FET) N Psychiatric Illness Y Ovarian Cancer N Diabetes N Pulmonary (TB, Asthma) N Hepatitis/Liver Disease N No Past Medical History N Eczema N Urinary Tract Infection N Abuse/Domestic Violence N Asthma N Trauma/Violence N Depression/ depression Y Heart Disease N Pre-Eclampsia N Hypertension Y Osteoporosis Y Thrombophilias N Gynecological History Statement/Question Response Date of Last Mammogram 10/04/2020 Date of LMP 07/27/2007 N Was last menstrual period normal Y STIs/STDs N If Post Menopausal, Age at Menopause 43 Date of Last Colonoscopy 10/10/2022 Abnormal Pap Y On BCP's at Conception? N HPV Vaccine N Colposcopy Duration of Flow (days) 5 Current Control Method Menopause Frequency of Cycle (Q days) 28 Sexually Active? N Date of DEXA bone scan 05/26/2022 Age of first menstrual cycle 14 Date of Last Pap Smear 04/21/2023 Sexual Problems? N LMP Approximate 10/10/2022 N 07/27/1992 Obstetrics History GPAL:G 1 P 0 0 1 0 Type Value Induced 1 Living 0 Total 1 Past Encounters Encounter ID Performer Location Encounter Start Date Encounter Closed Date Diagnosis/Indication Diagnosis SNOMED-CT Code Diagnosis ICD10 Code Diagnosis Note [id number] Jael John Paul Keene [address] [address] 01/29/2021 12:50:22 01/29/2021 16:44:37 Gynecologic examination 83564480 Z01.419 Take Calcium with Vitamin D 12-1500mg daily. Do monthly self breast exams. It is advised to get annual flu shot in the fall and she could obtain at [facility] or [facility] take care clinic. If you haven't received the Tdap vaccine in the last 10 years you should obtain one as well. Have mammogram yearly, bone density every 2-3 years and colonoscop y every 5-10 years depending on findings and history. Orders given for mammogram and dexa. Engage in daily exercise of low impact aerobic exercise 45-60 minutes 4-5 times weekly. Avoid tobacco and illicit drugs as well as using moderation with alcohol intake less than 1-2 8 oz beverages daily. This lifestyle behavior pattern will lead to less health conditions and longer life span. If BMI greater than 25 weight watchers or dietary consult advised. Questions have been answered. Patient appears to understand instructio ns, but if you have any further questions call or respond to this email. Herpes simplex [id number] B00.9 S/O was diagnosed with hsv many years ago so what is likely her primary outbreak is not a surprise. Discussed treatment options. Will plan episodic treatment at this time. [id number] Kareen Rosario , [facility] [address] [address] 04/21/2023 17:20:57 04/22/2023 16:04:43 Gynecologic examination [id number] Z01.419 Take Calcium with Vitamin D 12-1500mg daily. Do monthly self breast exams. It is advised to get annual flu shot in the fall and she could obtain at [facility] or [facility] care clinic. If you haven't received the Tdap vaccine in the last 10 years you should obtain one as well. Have mammogram yearly, bone density every 2-3 years and colonoscop y every 5-10 years depending on findings and history. Engage in daily exercise of low impact aerobic exercise 45-60 minutes 4-5 times weekly. Avoid tobacco and illicit drugs as well as using moderation with alcohol intake less than 1-2 8 oz beverages daily. This lifestyle behavior pattern will lead to less health conditions and longer life span. If BMI greater than 25 weight watchers or dietary consult advised. Questions have been answered. Patient appears to understand instructio ns, but if you have any further questions call or respond to this email Pap/hpv sentSTD Screen declinedGe netic Screen discussedC olon Screen PCPDexa Screen PCPRoutine Labs PCP Screening mammography 24 [id number] Z12.31 Health Concerns Section Related Observation LastModified by Organization Detai ls LastModified Time None Recorded Concern Status LastModified by Organization Details LastModified Time None Recorded Advance Directives Directive N: Payers Encounter Date Sequence Insurance Name Policy Number Policy De Jesus Covered Member ID De Jesus Member ID Guarantor Name 01/29/2021 1 [employer] - DOS PRIOR TO 21 - [facility] BENEFITS PLAN [id number] Jazmín Dejesus [id number] OI Jazmín Dejesus 04/21/2023 1 [employer] - ALLIED BENEFITS - OPEN ACCESS Jazmín Dejesus [id number] OI [id number] SOI Jazmín Dejesus Notes Date Note Type Note Provider Name and Address Organization Details Recorded Time 01/29/2021 text/html Annual GYNReport ed bypatient.Urinary symptoms:No hematuria; No incontinence Vulva:No genital lesion Vagina:Normal vaginal discharge Breast:No breast pain; No breast lump; No nipple discharge Sexual complaints:No sexual complaints; No pain during intercourse; Normal libido Menopausal Symptoms:No menopausal symptoms; Normal vaginal lubrication Psychological symptoms:No depression; No anxiety; No PMDD has hsv. Pt believes she had her 1st outbreak 2 weeks ago. Was seen and treated by pcp. Lesion and pain has resolved. Jael michele [facility] 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 Post-MenopausalRep orted bypatient.Menopaus al Symptoms:no menopausal symptoms; normal vaginal lubrication Vaginal Bleeding:history of menopause having occurred; no history of post menopausal bleeding Urinary Symptoms:no hematuria; no incontinence; no nocturia; no urinary frequency Vulva:no genital lesion; no vulvar atrophy Vagina:normal vaginal discharge; no vaginal atrophy Breast:no breast lump; no nipple discharge; no breast pain Sexual Complaints:no sexual complaints Psychological Symptoms:no depression; no anxiety Preventive Measures:encourage regular mammograms starting age 40; encourage self breast examination; encourage regular exercise; encourage no tobacco use; needs to schedule mammogram; history of recent colonoscopy Kareen Rosario [facility]- [address], [place], [address], [facility] 04/22/2023 14:21:09 OBGyn Episode Ob Episode Information Episode Created Date Number of Fetuses Patient Bloodtype Patient rh Status Prepregnancy Weight lbs Domestic Partner Domestic Partner Phone Father Name Sifter Operator Status 01/30/20 21 1 CLOSED Fetus Data First Name Last Name Admitted to NICU Weight (g) Sex Living Outcome Pediatric Complications Fetus ID Race Codes Race Delivery Type , Induced [id number] Kenneth Calculation Initial Kenneth Date Initial Exam Date Initial Exam Provider Initial Ultrasound Date Last Menstrual Period Date Ultra Sound Weeks Gestation 0 Eighteen To Twenty Week Kenneth Update Ultra Sound Date Fundal Height At Umbil Quickening Date Ultra Sound Latest Weeks Gestation Final Kenneth Confirmed By Final Kenneth Confirmed Date Final Kenneth Date Ultra Sound Latest Days Gestation 0 0 Menstrual History Last Menstrual Date Menses Monthly On Bcp Conception Prior Menses Frequency Hcg Plus Date Menarche Onset Age Delivery Information Delivery Date Delivery Type Labor Anesthesia Weeks Gestation Incision Type Labor Labor Length Hrs Delivered By Post Complications Tubal Sterilization Discharge Date Comments 8 Discharge Information Feeding Method Contraceptive Method Maternal HG B and HCT Levels
--- OUTSIDE RECORDS SUMMARY | 2024-11-12 09:29 | XMS_ITS | Clinical Summary ---
Author Organization [facility] Address [address] [place] [address] Care Team Providers Care Wine Bottle Inspector Name Role Phone Rebecca Villalobos Primary Care Provider [phone] Brown Martinez MD Unavailable [phone] Allergies Active Allergy Reactions Criticality Noted Date Comments Amoxicillin-Pot Clavulanate Other (See comments) Low 12/28/2017 c-diff Medications cholecalciferol (VITAMIN D-3) 1,000 unit capsule Take 1 capsule (1,000 Units total) by mouth daily Active valACYclovir (VALTREX) 500 mg tablet Take 1 tablet (500 mg total) by mouth daily 90 tablet 1 022 Active Additional Information Patient taking differently:500 mg oralDaily PRN, Reported on 08/31/2024 omeprazole (PriLOSEC) 40 mg capsule Take 1 capsule by mouth once daily 90 capsule 1 023 Active acetaminophen (TYLENOL) 500 mg tablet Take 600 mg by mouth 2 (two) times a day Active clonazePAM (KlonoPIN) 0.5 mg tablet Take 1 tablet (0.5 mg total) by mouth 2 (two) times a day 60 tablet 1 024 Active Additional Information Patient taking differently:0.5 mg oral2 times daily PRN, anxiety, Reported on 08/31/2024 nebivoloL (BYSTOLIC) 5 mg tablet TAKE 1 TABLET(5 MG) BY MOUTH DAILY 90 tablet 1 024 Active ibuprofen 200 mg tab/cap Take by mouth every 8 (eight) hours as needed for pain Takes PRN if really needed Active fenofibrate (TRIGLIDE) 160 mg tabletIndications :Mixed hyperlipidemia TAKE 1 TABLET(160 MG) BY MOUTH DAILY 90 tablet 1 024 Active simvastatin (ZOCOR) 10 mg tablet TAKE 1 TABLET(10 MG) BY MOUTH DAILY 90 tablet 1 025 Active tapentadoL (NUCYNTA) 50 mg tabletIndications :Acute Pain May take 1-2 tablets daily prn pain 30 tablet 025 Active escitalopram (LEXAPRO) 20 mg tablet TAKE 1 TABLET(20 MG) BY MOUTH DAILY 90 tablet 1 025 Active levothyroxine (SYNTHROID) 50 mcg tabletIndications :Acquired hypothyroidism TAKE 1 TABLET(50 MCG) BY MOUTH DAILY 100 tablet 1 025 Active buPROPion XL (WELLBUTRIN XL) 300 mg 24 hr tablet TAKE 1 TABLET(300 MG) BY MOUTH EVERY MORNING 90 tablet 1 025 Active semaglutide (WEGOVY) 1.7 mg/0.75 mL auto-injectorIndi cations:Weight Loss Management for Obese Patient (BMI >= 30) Inject 1.7 mg under the skin every 7 days 3 mL 1 025 Active Wegovy 2.4 mg/0.75 mL auto-injectorIndi cations:BMI 34.0-34.9,adult ADMINISTER 2.4 MG UNDER THE SKIN EVERY 7 DAYS 3 mL 1 025 2024 Discontinued Wegovy 2.4 mg/0.75 mL auto-injectorIndi cations:BMI 34.0-34.9,adult ADMINISTER 2.4 MG UNDER THE SKIN EVERY 7 DAYS 3 mL 1 025 2024 Discontinued Active Problems Problem Noted Date Diagnosed Date Annual physical exam 07/22/2024 Assessment & Plan (07/22/2024 1:01 PM DISTRIBUTION LINEMAN): Encouraged healthy lifestyle, good nutrition and exercise. Encouraged Calcium and Vitamin D and weight bearing exercise for bone health. Reviewed immunizations Reviewed age appropirate screenings. Need for Tdap vaccination 07/22/2024 Assessment & Plan (07/22/2024 1:01 PM DISTRIBUTION LINEMAN): Tdap updated in the office today Radiculopathy, lumbosacral region 04/25/2024 Spinal stenosis of lumbar re gion without neurogenic claudication 04/25/2024 Assessment & Plan (07/22/2024 12:59 PM DISTRIBUTION LINEMAN): Continue per Dr. Adorno. Currently using Nucynta for pain control Lumbosacral spondylosis without myelopathy 04/25 Chronic bilateral low back pain without sciatica 11/07/2023 Assessment & Plan (03/25/2024 12:11 AM CDT): Patient with persistent back pain. Has had multiple surgeries. Continue with pain management. She is considering stimulator for the pain. Has follow-up scheduled with Dr. Dow at [facility] in [place]. Will await his recommendations. If she desires a 2nd opinion she may call and will consider Dr. Malone at [facility] and [place] Patient request short supply of tramadol as she says she insists in so much pain currently that it is difficult to even walk. Advised that pain management needs to help address her pain issues. I will give her 10. Tramadol 50 to use for severe pain but this is not the way that I would recommend treating her back pain she needs to work with pain management come up with a longer-term plan. Assessment & Plan (11/07/2023 9:24 PM CDT): Patient with chronic back pain. She has been following with specialists and pain management. Encouraged her to continue Adenoma of right adrenal gland 10/22/2023 Overview (11/16/2023): 09/2023 --- 2.5cm right adrenal gland adenoma ---will check DHEAS an 1mg Dexamethasone Supression Test.(Negative 10/2023) Repeat imaging in 08/2024 Refer if >4cm size, >1cm growth in 1 year or develops + hormones. Assessment & Plan (07/22/2024 12:59 PM DISTRIBUTION LINEMAN): 09/2023 --- 2.5cm right adrenal gland adenoma ---will check DHEAS an 1mg Dexamethasone Supression Test.(Negative 10/2023) Repeat imaging in 08/2024 Refer if >4cm size, >1cm growth in 1 year or develops + hormones. Assessment & Plan (12/08/2023 3:06 PM CDT): 09/2023 --- 2.5cm right adrenal gland adenoma ---will check DHEAS an 1mg Dexamethasone Supression Test.(Negative 10/2023) Repeat imaging in 08/2024 Refer if >4cm size, >1cm growth in 1 year or develops + hormones. Assessment & Plan (11/07/2023 9:57 PM CDT): 09/2023 --- 2.5cm right adrenal gland adenoma ---will check DHEAS an 1mg Dexamethasone Supression Test. ---If NL hormones, Repeat imaging in 1 year. Refer if >4cm size, >1cm growth in 1 year or develops + hormones. Instructions for DST: At 11pm, take 1 mg dexamethasone orally. At 9am, Get your cortisol blood level drawn (Patient was notified after the appointment via telephone message to get DST. Will await results) BMI 33.0-33.9,adult 06/22/2023 Assessment & Plan (07/11/2024 4:32 PM DISTRIBUTION LINEMAN): Discussed the patient's BMI. The BMI is above average. BMI management plan is completed. BMI Follow-up includes: nutrition counseling, exercise counseling and education provided. Assessment & Plan (03/25/2024 12:06 AM CDT): Discussed the patient's BMI. The BMI is above average. BMI management plan is completed. BMI Follow-up includes: nutrition counseling, exercise counseling and education provided. Assessment & Plan (12/08/2023 3:07 PM CDT): Discussed the patient's BMI. The BMI is above average. BMI management plan is completed. BMI Follow-up includes: nutrition counseling, exercise counseling and education provided. Assessment & Plan (11/07/2023 9:27 PM CDT): Discussed the patient's BMI. The BMI is above average. BMI management plan is completed. BMI Follow-up includes: nutrition counseling, exercise counseling and education provided. Assessment & Plan (06/22/2023 5:10 PM DISTRIBUTION LINEMAN): Discussed the patient's BMI. The BMI is above average. BMI management plan is completed. BMI Follow-up includes: nutrition counseling, exercise counseling and education provided. Breast cancer screening by mammogram 12/08/2022 Assessment & Plan (07/22/2024 1:01 PM DISTRIBUTION LINEMAN): Mammogram order provided Assessment & Plan (12/08/2022 9:26 PM CDT): Mammogram order provided Blurry vision, left eye 12/05/2022 Assessment & Plan (12/05/2022 2:15 PM CDT): Possible untreated or worsening left conjunctivitis in a contact lens wearer, now having acute onset left sided blurry vision. Was given Polytrim and patient continued to use drops while contacts still in. Concerning for untreated conjunctivitis vs keratitis Sending patient to the ER for urgent ophthalmic evaluation. Risks vs benefits discussed in detail. Hypertension, essential 06/29/2022 Assessment & Plan (07/22/2024 12:58 PM DISTRIBUTION LINEMAN): Bp is stable/in acceptable range for any co-morbidities. Encouraged to limit sodium intake and exercise for weight control. Bystolic 5 mg Assessment & Plan (06/22/2023 10:09 PM DISTRIBUTION LINEMAN): Bp is stable/in acceptable range for any co-morbidities. Encouraged to limit sodium intake and exercise for weight control. Continue Bystolic 5 Assessment & Plan (08/23/2022 1:15 PM DISTRIBUTION LINEMAN): Bp is stable/in acceptable range for any co-morbidities. Encouraged to limit sodium intake and exercise for weight control. Much better control with the Bystolic. Continue Bystolic 5 mg daily. Continue monitor closely Assessment & Plan (07/13/2022 10:45 AM DISTRIBUTION LINEMAN): Encouraged to limit sodium intake and exercise for weight control. Still not fully controlled. Will continue with the HCTZ 25 mg daily. Start Bystolic 5 mg. This will help with the blood pressure, heart rate as well as some for anxiety. Follow-up in couple of weeks with home readings and then the office in about 4-6 weeks. If she has any chest pain shortness at breath visual changes she is to go to the ER immediately. She understands these instructions Assessment & Plan (06/29/2022 9:50 AM DISTRIBUTION LINEMAN): Encouraged to limit sodium intake and exercise for weight control. Encouraged to follow-up with psychiatrist to rule out anxiety is component of the increase of her symptoms. Regardless will start with hydrochlorothiazide 25 mg 1 daily q.a.m.. Will check CMP in 2-4 weeks. Monitor home readings closely and call with a week with updates to make sure we are getting consistent control of this blood pressure. She has any other concerns she is to follow up sooner. History of COVID-19 11/07/2020 Assessment & Plan (11/07/2020 11:56 AM CDT): We discussed possibility of a false positive, however she was advised to remain quarantined per CDC guidelines. She was advised to have follow this protocol as well. Will send her for repeat testing at [place] and will notify her of results as available. She was also encouraged to have her mom report to her pcp for monitoring. COOPER on CPAP 08/15/2019 Overview (08/15/2019): 2019--Sleep study ordered by Dentist - severe COOPER. Assessment & Plan (07/22/2024 12:57 PM DISTRIBUTION LINEMAN): Continue CPAP. Work with [facility] Assessment & Plan (12/08/2023 3:06 PM CDT): Patient with known COOPER. Struggling with finding a mask that works well for her. Continue per [facility] and strongly encouraged her to try to find a mask that will help her. Reviewed the long-term sequela of untreated or undertreated sleep apnea. If she can not tolerate encouraged her to discuss other alternatives with sleep Medicine next time she sees them Assessment & Plan (11/07/2023 9:25 PM CDT): Patient states she had her sleep study done at [facility] in July but still struggling with getting her machine and mask. Encouraged her to call and follow- up with the group at [facility]. If she runs into a barrier she can call and we will try to help facilitate. Reminded her the importance of using her CPAP Assessment & Plan (06/22/2023 10:09 PM DISTRIBUTION LINEMAN): Continue with CPAP Assessment & Plan (12/08/2022 9:24 PM CDT): Using CPAP nightly as instructed. Continues to follow with sleep Medicine at [facility]. She is beginning to see improvement from wearing it on a regular basis Assessment & Plan (08/23/2022 1:15 PM DISTRIBUTION LINEMAN): Continue workup with [facility]. Still awaiting sleep results. Assessment & Plan (05/07/2022 9:56 PM CDT): Patient is having difficulty with her mask in difficulty wearing it every day. Will refer to pulmonology for further evaluation assistance and monitoring of her CPAP. Assessment & Plan (11/28/2019 5:29 PM CDT): Still not using regular due to difficulty finding a mask that she will leave on. Encouraged her to call her DME. Assessment & Plan (08/15/2019 8:17 PM DISTRIBUTION LINEMAN): This is a significant, separately identifiable problem that was evaluated and managed on the same day as the wellness exam Reviewed Sleep Apnea with patient including pathology, risk of untreated COOPER, Sleep study results and treatment options (Weight loss/CPAP/Dental Device). Encouraged weight loss. Will order CPAP device. Cigarette smoker 08/15/2019 Assessment & Plan (07/22/2024 12:56 PM DISTRIBUTION LINEMAN): Working hard on complete smoking cessation. Down to just a couple when she is in the car Assessment & Plan (03/25/2024 12:10 AM CDT): Encouraged smoking cessation. Discussed 3 minutes. She is down to just a couple cigarettes when she is in the car. Encouraged her to completely stop. Assessment & Plan (12/08/2023 3:06 PM CDT): Encouraged smoking cessation. Discussed 3 minutes. Reviewed options for assistance with cessation. Reviewed extermination supervisor sequela associated with smoking. Pt declines assistance at this time but may contact the office at anytime for further help as they desire. Assessment & Plan (11/07/2023 9:27 PM CDT): Encouraged smoking cessation. Discussed 3 minutes. Reviewed halfway sequela associated with smoking. Restart the Wellbutrin as it had really helped with reduction of smoking. Assessment & Plan (12/08/2022 9:24 PM CDT): Encouraged smoking cessation. Discussed 3 minutes. Reviewed options for assistance with cessation. Reviewed extermination supervisor sequela associated with smoking. Pt declines assistance at this time but may contact the office at anytime for further help as they desire. Assessment & Plan (11/28/2019 5:19 PM CDT): Encouraged smoking cessation. Discussed 3 minutes. Reviewed options for assistance with cessation. Reviewed halfway sequela associated with smoking. Pt declines assistance at this time but may contact the office at anytime for further help as they desire. Assessment & Plan (08/15/2019 8:13 PM DISTRIBUTION LINEMAN): Encouraged smoking cessation. Discussed 3 minutes. Reviewed options for assistance with cessation. Reviewed extermination supervisor sequela associated with smoking. Pt declines assistance at this time but may contact the office at anytime for further help as they desire. Obesity (BMI 30-39.9) 07/04/2019 Assessment & Plan (07/22/2024 12:57 PM DISTRIBUTION LINEMAN): Discussed the patient's BMI. The BMI is above average. BMI management plan is completed. BMI Follow-up includes: nutrition counseling, exercise counseling and education provided. She is doing great with the Wegovy. Continue 2 mg dosing q.week Assessment & Plan (03/25/2024 12:05 AM CDT): Discussed the patient's BMI. The BMI is above average. BMI management plan is completed. BMI Follow-up includes: nutrition counseling, exercise counseling and education provided. Patient is doing well with the Wegovy. Will continue the 2.4 mg per week. Continue to monitor closely. Continue with good nutrition and exercise Assessment & Plan (12/08/2023 3:07 PM CDT): Discussed the patient's BMI. The BMI is above average. BMI management plan is completed. BMI Follow-up includes: nutrition counseling, exercise counseling and education provided. Continue Mounjaro. Assessment & Plan (01/10/2021 1:36 PM CDT): Obesity is unchanged. Discussed the patient's BMI. The BMI is above average. BMI management plan is completed. BMI Follow-up includes: nutrition counseling, exercise counseling and education provided. Assessment & Plan (11/28/2019 10:06 PM CDT): Obesity is unchanged. Discussed the patient's BMI. The BMI is above average. BMI management plan is completed. BMI Follow-up includes: nutrition counseling, exercise counseling and education provided. Assessment & Plan (08/15/2019 5:31 PM DISTRIBUTION LINEMAN): Obesity is unchanged. Discussed the patient's BMI. The BMI is above average. BMI management plan is completed. BMI Follow-up includes: nutrition counseling, exercise counseling and education provided. Assessment & Plan (07/04/2019 11:12 AM DISTRIBUTION LINEMAN): Obesity is unchanged. Discussed the patient's BMI. The BMI is above average. BMI management plan is completed. BMI Follow-up includes: nutrition counseling, exercise counseling and education provided. Vitamin D deficiency 12/26/2018 Assessment & Plan (07/22/2024 12:56 PM DISTRIBUTION LINEMAN): Supplement Assessment & Plan (03/25/2024 12:05 AM CDT): Supplement Assessment & Plan (06/22/2023 10:08 PM DISTRIBUTION LINEMAN): Supplement Assessment & Plan (02/02/2022 10:23 PM CDT): Supplement Assessment & Plan (08/15/2019 8:07 PM DISTRIBUTION LINEMAN): supplement Assessment & Plan (01/02/2019 10:29 PM CDT): Continue otc supplement Gastroesophageal reflux disease without esophagi tis 12/26/2018 Assessment & Plan (07/13/2022 10:44 AM DISTRIBUTION LINEMAN): Discussed GERD at length including anatomy, behavioral changes (anti-reflux maneuvers, avoid acidic foods like oranges and tomatoes., avoidance of spicy foods, avoid eating 3-4 hours before bed, elevation of the head of the bed), weight loss and medication options for treatment. Followup if sxs worsen or has hematochezia or hematemeis. She can continue with the omeprazole increasing it twice a day. Add Pepcid [id number] if needed. If she would have dark coffee-ground emesis or begin vomiting blood or notice dark tarry stool she is to call the office immediately for further evaluation. Assessment & Plan (05/07/2022 10:13 PM CDT): Continue PPI p.r.n. Assessment & Plan (02/02/2022 10:23 PM CDT): Stable with pantoprazole Assessment & Plan (08/15/2019 8:07 PM DISTRIBUTION LINEMAN): Stable with PPI Assessment & Plan (01/02/2019 10:30 PM CDT): Stable with PPI Mixed hyperlipidemia 12/26/2018 Assessment & Plan (07/22/2024 1:00 PM DISTRIBUTION LINEMAN): Encouraged patient to follow low fat/low chol diet like the Mediterranean diet. Increase good fats in the diet. Increase exercise. Monitor labs as needed. Continue simvastatin and Triglide Assessment & Plan (06/22/2023 10:08 PM DISTRIBUTION LINEMAN): Encouraged patient to follow low fat/low chol diet like the Mediterranean diet. Increase good fats in the diet. Increase exercise. Monitor labs as needed. Continue simvastatin and fenofibrate Assessment & Plan (08/23/2022 1:14 PM DISTRIBUTION LINEMAN): Encouraged patient to follow low fat/low chol diet like the Mediterranean diet. Increase good fats in the diet. Increase exercise. Monitor labs as needed. Continue Triglide and simvastatin Assessment & Plan (05/07/2022 9:56 PM CDT): Encouraged patient to follow low fat/low chol diet like the Mediterranean diet. Increase good fats in the diet. Increase exercise. Monitor labs as needed. Continue simvastatin Assessment & Plan (02/02/2022 10:23 PM CDT): Encouraged patient to follow low fat/low chol diet like the Mediterranean diet. Increase good fats in the diet. Increase exercise. Monitor labs as needed. Continue fenofibrate and simvastatin Assessment & Plan (08/15/2019 8:08 PM DISTRIBUTION LINEMAN): Encouraged patient to continue low fat/low chol diet. Continue exercise. Increase good fats in the diet. Monitor labs as needed. Continue fenofibrate and statin Assessment & Plan (01/02/2019 10:30 PM CDT): Encouraged patient to continue low fat/low chol diet. Continue exercise. Increase good fats in the diet. Monitor labs as needed. Continue statin Anxiety 12/26/2018 Assessment & Plan (06/22/2023 10:09 PM DISTRIBUTION LINEMAN): Continue per Psychiatry. Currently on clonazepam Lexapro and Wellbutrin XL450 Assessment & Plan (02/02/2022 10:23 PM CDT): Continue per Psychiatry. Stable with Wellbutrin Klonopin and Lexapro Assessment & Plan (08/15/2019 8:08 PM DISTRIBUTION LINEMAN): Continue per psychiatry Assessment & Plan (01/02/2019 10:31 PM CDT): Continue with psychiatrist. History of intestinal obstruction 12/26/2018 Stage 2 chronic kidney disease 12/26/2018 Assessment & Plan (01/02/2019 10:30 PM CDT): Avoid nephrotoxic drugs including NSAIDs. Monitor labs. Moderate episode of recurrent major depressive d isorder 12/26/2018 Assessment & Plan (07/22/2024 12:56 PM DISTRIBUTION LINEMAN): Depression symptoms have been stable with Klonopin 0.5 mg b.i.d. Lexapro 20 Wellbutrin XL 300. She is down to just a couple cigarettes when she is in the car and working hard to eliminate them all Assessment & Plan (03/25/2024 12:05 AM CDT): Depression symptoms are stable. Continue Klonopin 0.5 half tab b.i.d. Lexapro 20 daily and Wellbutrin XL 300 daily Assessment & Plan (12/08/2023 3:06 PM CDT): Symptoms are stable. Continue Klonopin 0.5 mg half tablet b.i.d, Lexapro 20 and Wellbutrin XL 150 for depression as well as smoking cessation. Assessment & Plan (11/07/2023 9:27 PM CDT): Patient's psychiatrist recently unexpectedly. She is wanting to have me manage her mental health concerns. Strongly encouraged her to continue with counseling. Continue Klonopin 0.5 half tab b.i.d. and Lexapro 20. She had been on Wellbutrin 450mg but supply was not available so she cold turkey stopped it. She states she feels like the sweating she had been experiencing resolved but she is now smoking again. Would like to restart a low-dose. Wellbutrin XL 150 sent to pharmacy. Assessment & Plan (06/22/2023 10:09 PM DISTRIBUTION LINEMAN): Continue per Psychiatry. Currently on clonazepam Lexapro and Wellbutrin XL450 Assessment & Plan (05/07/2022 9:56 PM CDT): Managed by Psychiatry Assessment & Plan (02/02/2022 10:24 PM CDT): Continue per Psychiatry. Stable with Wellbutrin Klonopin and Lexapro Assessment & Plan (08/15/2019 8:09 PM DISTRIBUTION LINEMAN): Managed by psychiatry Assessment & Plan (01/02/2019 10:31 PM CDT): Continue with psychitrist Acquired hypothyroidism 12/28/2017 Assessment & Plan (07/22/2024 12:56 PM DISTRIBUTION LINEMAN): Continue levothyroxine 50 mcg. Monitor labs. Assessment & Plan (03/25/2024 12:06 AM CDT): Continue levothyroxine 50 mcg. Monitor labs. Assessment & Plan (06/22/2023 10:08 PM DISTRIBUTION LINEMAN): Continue levothyroxine. Monitor labs. Assessment & Plan (08/23/2022 1:14 PM DISTRIBUTION LINEMAN): Continue levothyroxine. Monitor labs. Assessment & Plan (05/07/2022 9:52 PM CDT): Continue levothyroxine. Monitor labs. Assessment & Plan (02/02/2022 10:23 PM CDT): Continue levothyroxine. Monitor labs. Assessment & Plan (08/15/2019 8:07 PM DISTRIBUTION LINEMAN): Continue levothyroxine. Recheck labs Assessment & Plan (01/02/2019 10:30 PM CDT): Continue with Levothyroxine. Check labs for stablity Assessment & Plan (12/28/2017 5:38 PM CDT): Advised to continue dose of Levothyroxine Check labs soon, further plans based on repeat lab results Instructions for taking levothyroxine Brand name is preferred Take thyroid pill all by itself Take thyroid pill one hour before food or 2 to 3 hours after food Heat, humidity, and direct sunlight will cause a loss of potency Never store thyroid pill in the bathroom The medication should be taken daily. If one or more pills are missing in a week, they can be taken all together at once, making sure at the end of the week, 7 tabs have been taken. Pre-diabetes 12/28/2017 Assessment & Plan (07/22/2024 12:59 PM DISTRIBUTION LINEMAN): Pre-diabetes/hyperglycemia is a precursor to Dm. Stressed importance of working on diet (decrease your simple sugars and one carbohydrate with each meal) and increase you exercise to achieve weight loss and this will help prevent you from progressing to diabetes. Assessment & Plan (03/25/2024 12:05 AM CDT): Pre-diabetes/hyperglycemia is a precursor to Dm. Stressed importance of working on diet (decrease your simple sugars and one carbohydrate with each meal) and increase you exercise to achieve weight loss and this will help prevent you from progressing to diabetes. Assessment & Plan (06/22/2023 10:08 PM DISTRIBUTION LINEMAN): Pre-diabetes/hyperglycemia is a precursor to Dm. Stressed importance of working on diet (decrease your simple sugars and one carbohydrate with each meal) and increase you exercise to achieve weight loss and this will help prevent you from progressing to diabetes. Assessment & Plan (08/23/2022 1:16 PM DISTRIBUTION LINEMAN): Pre-diabetes/hyperglycemia is a precursor to Dm. Stressed importance of working on diet (decrease your simple sugars and one carbohydrate with each meal) and increase you exercise to achieve weight loss and this will help prevent you from progressing to diabetes. Doing well with Ozempic 0.5. Tolerating with minimal side effects. Will continue with the same dose. Continue with weight loss effort. Assessment & Plan (05/07/2022 9:56 PM CDT): Pre-diabetes/hyperglycemia is a precursor to Dm. Stressed importance of working on diet (decrease your simple sugars and one carbohydrate with each meal) and increase you exercise to achieve weight loss and this will help prevent you from progressing to diabetes. Continuing with Ozempic to assist in weight loss and prevent progression of A1c. Tolerating well. Refills sent to pharmacy. Assessment & Plan (02/02/2022 10:23 PM CDT): Pre-diabetes/hyperglycemia is a precursor to Dm. Stressed importance of working on diet (decrease your simple sugars and one carbohydrate with each meal) and increase you exercise to achieve weight loss and this will help prevent you from progressing to diabetes. Assessment & Plan (08/15/2019 8:09 PM DISTRIBUTION LINEMAN): Pre-diabetes is a precursor to Dm. Stressed importance of working on diet (decrease your simple sugars and one carbohydrate with each meal) and increase you exercise to achieve weight loss and this will help prevent you from progressing to diabetes. Assessment & Plan (01/02/2019 10:30 PM CDT): Pre-diabetes is a precursor to Dm. Stressed importance of working on diet (decrease your simple sugars and one carbohydrate with each meal) and increase you exercise to achieve weight loss and this will help prevent you from progressing to diabetes. Assessment & Plan (12/28/2017 5:41 PM CDT): - advise to work on healthy diet, avoid processed foods , increase vegetables and protein and cut back on carb portions and also avoid fruit juices and regular soda and desserts - advised to work on healthy weight loss , increase physical activity - will check A1c during next visit Resolved Problems Problem Noted Date Diagnosed Date Resolved Date Annual physical exam 06/22/2023 024 Assessment & Plan (06/22/2023 10:10 PM DISTRIBUTION LINEMAN): Encouraged healthy lifestyle, good nutrition and exercise. Encouraged Calcium and Vitamin D and weight bearing exercise for bone health. Reviewed immunizations Reviewed age appropirate screenings. Abnormal CBC 06/22/2023 07/22/2024 Assessment & Plan (06/22/2023 10:08 PM DISTRIBUTION LINEMAN): This is a significant, separately identifiable problem that was evaluated and managed on the same day as the wellness exam Most recent CBC revealed elevated white blood cell count with elevated neutrophils. Platelets are also elevated. She is been experiencing sweating during the day. Recommend repeating CBC with blood smear for further evaluation. Will check SONNY and inflammatory markers. Will follow-up pending those results. Hot flashes 06/22/2023 11/07/2023 Assessment & Plan (06/22/2023 10:21 PM DISTRIBUTION LINEMAN): This is a significant, separately identifiable problem that was evaluated and managed on the same day as the wellness exam Patient has noticed what she describes as hot flashes. They are happening during the day. Denies drenching sweats at night. CBC is off so will repeat the labs and try to investigate underlying reason for neutrophilia. Discussed possible chest and abdomen CT. Discussed possible side effect to Wellbutrin/lexapro. No palpable lymph nodes today. Will await labs to decide next step in workup. Morbid obesity 12/08/2022 07/22/2024 Assessment & Plan (11/07/2023 9:27 PM CDT): Discussed the patient's BMI. The BMI is above average. BMI management plan is completed. BMI Follow-up includes: nutrition counseling, exercise counseling and education provided. Continue Wegovy Assessment & Plan (06/22/2023 10:10 PM DISTRIBUTION LINEMAN): Discussed the patient's BMI. The BMI is above average. BMI management plan is completed. BMI Follow-up includes: nutrition counseling, exercise counseling and education provided. Patient has an obesity-related condition (not limited to: hypertension, obstructive sleep apnea, osteoarthritis, hyperlipidemia, diabetes, etc.). Therefore, morbid obesity may be documented for patients with a BMI between 35.00-39.99. Assessment & Plan (12/08/2022 9:25 PM CDT): Discussed the patient's BMI. The BMI is above average. BMI management plan is completed. BMI Follow-up includes: nutrition counseling, exercise counseling and education provided. Patient has an obesity-related condition (not limited to: hypertension, obstructive sleep apnea, osteoarthritis, hyperlipidemia, diabetes, etc.). Therefore, morbid obesity may be documented for patients with a BMI between 35.00-39.99. Tolerating Ozempic 0.5 weekly. She initially noted decrease in appetite but that has slowly come back at this dose. Willing to increase to 1 mg per week. New prescription sent. Follow-up in 2-3 months to reassess BMI 36.0-36.9,adult 12/08/2022 06/22/20 Assessment & Plan (12/08/2022 4:47 PM CDT): Discussed the patient's BMI. The BMI is above average. BMI management plan is completed. BMI Follow-up includes: nutrition counseling, exercise counseling and education provided. Morbid obesity 07/01/2022 12/08/2022 Assessment & Plan (08/23/2022 1:15 PM DISTRIBUTION LINEMAN): Discussed the patient's BMI. The BMI is above average. BMI management plan is completed. BMI Follow-up includes: nutrition counseling, exercise counseling and education provided. Assessment & Plan (07/01/2022 2:36 PM DISTRIBUTION LINEMAN): Obesity is unchanged. Discussed the patient's BMI. The BMI is above average. BMI management plan is completed. BMI Follow-up includes: nutrition counseling, exercise counseling and education provided. BMI 35.0-35.9,adult 07/01/2022 12/09/19 Assessment & Plan (08/23/2022 1:16 PM DISTRIBUTION LINEMAN): Discussed the patient's BMI. The BMI is above average. BMI management plan is completed. BMI Follow-up includes: nutrition counseling, exercise counseling and education provided. Assessment & Plan (07/01/2022 2:37 PM DISTRIBUTION LINEMAN): Obesity is unchanged. Discussed the patient's BMI. The BMI is above average. BMI management plan is completed. BMI Follow-up includes: nutrition counseling, exercise counseling and education provided. BMI 35.0-35.9,adult 05/07/2022 07/01/20 22 Assessment & Plan (05/07/2022 9:57 PM CDT): Discussed the patient's BMI. The BMI is above average. BMI management plan is completed. BMI Follow-up includes: nutrition counseling, exercise counseling and education provided. Colon cancer screening 05/07/202207/22 Assessment & Plan (05/07/2022 9:57 PM CDT): Patient due for colon cancer screening in July. Will go ahead and place the order for the Cologuard if she desires to repeat. Fatigue 05/07/2022 07/22/2024 Assessment & Plan (05/07/2022 9:57 PM CDT): Probably multifactorial. Check labs and followup to re-evaluate Laceration of finger without foreign body without damage to nail 03/31/2022 05/07/2022 Assessment & Plan (03/31/2022 3:58 PM CDT): Finger tip appears to be healing well. No signs or symptoms of infection. Sutures had already fallen out. Continue to monitor Elevated blood pressure read ing without diagnosis of hypertension 02/02/2022 06/29/2022 Assessment & Plan (02/02/2022 10:25 PM CDT): Patient is the middle of dental work right now and states she is in a lot of pain. Encouraged her to monitor her blood pressure is it is much higher than it normally is. If it remains over 135/85 she is to call immediately for further evaluation. She voices understanding and agreement with plan. Annual physical exam 02/02/2022 022 Assessment & Plan (02/02/2022 10:25 PM CDT): Encouraged healthy lifestyle, good nutrition and exercise. Encouraged Calcium and Vitamin D and weight bearing exercise for bone health. Reviewed immunizations Reviewed age appropirate screenings. BMI 36.0-36.9,adult 01/20/2022 05/07/20 Assessment & Plan (03/31/2022 3:58 PM CDT): Discussed the patient's BMI. The BMI is above average. BMI management plan is completed. BMI Follow-up includes: nutrition counseling, exercise counseling and education provided. Patient has started white go V/Ozempic for weight loss. She is tolerating well. No difficulty with injection. Will continue to monitor closely. Assessment & Plan (01/20/2022 5:32 PM CDT): Discussed the patient's BMI. The BMI is above average. BMI management plan is completed. BMI Follow-up includes: nutrition counseling, exercise counseling and education provided. BMI 35.0-35.9,adult 03/18/2021 01/21/20 Assessment & Plan (03/18/2021 1:22 PM CDT): Obesity is unchanged. Discussed the patient's BMI. The BMI is above average. BMI management plan is completed. BMI Follow-up includes: nutrition counseling, exercise counseling and education provided. Morbid obesity 03/18/2021 07/01/2022 Assessment & Plan (05/07/2022 9:57 PM CDT): Discussed the patient's BMI. The BMI is above average. BMI management plan is completed. BMI Follow-up includes: nutrition counseling, exercise counseling and education provided. Patient has an obesity-related condition (not limited to: hypertension, obstructive sleep apnea, osteoarthritis, hyperlipidemia, diabetes, etc.). Therefore, morbid obesity may be documented for patients with a BMI between 35.00-39.99. Assessment & Plan (03/31/2022 3:58 PM CDT): Discussed the patient's BMI. The BMI is above average. BMI management plan is completed. BMI Follow-up includes: nutrition counseling, exercise counseling and education provided. Patient has an obesity-related condition (not limited to: hypertension, obstructive sleep apnea, osteoarthritis, hyperlipidemia, diabetes, etc.). Therefore, morbid obesity may be documented for patients with a BMI between 35.00-39.99. Assessment & Plan (01/20/2022 5:32 PM CDT): Discussed the patient's BMI. The BMI is above average. BMI management plan is completed. BMI Follow-up includes: nutrition counseling, exercise counseling and education provided. Assessment & Plan (03/18/2021 1:23 PM CDT): Obesity is unchanged. Discussed the patient's BMI. The BMI is above average. BMI management plan is completed. BMI Follow-up includes: nutrition counseling, exercise counseling and education provided. Fall (on) (from) other stair s and steps, sequela 03/17/2021 05/07/2022 Assessment & Plan (03/30/2021 10:50 PM CDT): See buttock pain Assessment & Plan (03/17/2021 10:36 PM CDT): Fall a work. See buttock pain Traumatic buttock pain 03/17/202107/22 Assessment & Plan (03/30/2021 10:50 PM CDT): Resolving. Ready to return to work. Note provided indicating RTW on 03/19 without restriction. Assessment & Plan (03/17/2021 10:34 PM CDT): Right buttock ecchymosis and pain. Encouraged NSAIDS (if able to safely tolerate) or Tylenol. Topical preparations like Lidocaine patches, Biofreeze, ICYHOT etc as needed. Heat, stretching Avoid long periods of sitting/laying. Encouraged PT. Patient declines Followup if has any problems controlling bowels or bladder or if sxs worsen. Patient states she is unable to return to work at this point. Reassess on 03/13. Obesity (BMI 30-39.9) 03/12/20212020 Assessment & Plan (03/12/2021 9:45 AM CDT): Obesity is unchanged. Discussed the patient's BMI. The BMI is above average. BMI management plan is completed. BMI Follow-up includes: nutrition counseling, exercise counseling and education provided. BMI 36.0-36.9,adult 03/12/2021 03/18/20 Assessment & Plan (03/12/2021 9:45 AM CDT): Obesity is unchanged. Discussed the patient's BMI. The BMI is above average. BMI management plan is completed. BMI Follow-up includes: nutrition counseling, exercise counseling and education provided. Vulvar lesion 01/10/2021 07/22/2024 Assessment & Plan (01/10/2021 3:13 PM CDT): Will evaluate further with labs. Discussed given yovany's history likely a herpetic lesion. Will start on acyclovir. She was advised to use vasoline/barrier to prevent burning with wiping or urinating. She will f/u in the next week if not improving, sooner if worsening. We discussed appt with safety and skill based pay manager if labs normal for further evaluation and biopsy. Suprapatellar bursitis 05/31/202007/22 Assessment & Plan (06/02/2020 11:20 AM DISTRIBUTION LINEMAN): Keep area elevated and may use a compression strap to the area. Medrol dose pack. Reviewed risks and benefits of steroid use. Discussed drainage but will hold off and try the oral steroids as not significantly enlarged. If redness increases, she is to call and may consider antibiotic. Annual physical exam 08/15/2019 05/10/26 020 Assessment & Plan (08/15/2019 8:08 PM DISTRIBUTION LINEMAN): Encouraged healthy lifestyle, good nutrition and exercise. Encouraged Calcium and Vitamin D and weight bearing exercise for bone health. Reviewed immunizations Reviewed age appropirate screenings. Other fatigue 08/15/2019 02/02/2022 Assessment & Plan (08/15/2019 8:10 PM DISTRIBUTION LINEMAN): Probably multifactorial. Check labs and followup to re-evaluate BMI 35.0-35.9,adult 07/04/2019 03/12/20 21 Assessment & Plan (01/10/2021 1:36 PM CDT): Obesity is unchanged. Discussed the patient's BMI. The BMI is above average. BMI management plan is completed. BMI Follow-up includes: nutrition counseling, exercise counseling and education provided. Assessment & Plan (11/28/2019 5:03 PM CDT): Obesity is unchanged. Discussed the patient's BMI. The BMI is above average. BMI management plan is completed. BMI Follow-up includes: nutrition counseling, exercise counseling and education provided. Assessment & Plan (08/15/2019 5:31 PM DISTRIBUTION LINEMAN): Obesity is unchanged. Discussed the patient's BMI. The BMI is above average. BMI management plan is completed. BMI Follow-up includes: nutrition counseling, exercise counseling and education provided. Assessment & Plan (07/04/2019 11:11 AM DISTRIBUTION LINEMAN): Obesity is unchanged. Discussed the patient's BMI. The BMI is above average. BMI management plan is completed. BMI Follow-up includes: nutrition counseling, exercise counseling and education provided. Acute non-recurrent maxillary sinusitis 07/04/2019 08/15/2019 Assessment & Plan (07/04/2019 12:01 PM DISTRIBUTION LINEMAN): Start antibiotic, antihistamine, Mucinex and Steroid nasal spray. Push fluids. Rest. Supportive care. If sxs worsen or don\'t improve, pt is to followup in the office. Impacted cerumen of left ear 07/04/2019 11/28/2019 Assessment & Plan (07/04/2019 12:02 PM DISTRIBUTION LINEMAN): May use otc Debrox. If doesn't resolve, followup after completing the antibiotic and will clean out the ear. Colon cancer screening 01/02/201902/02 Encounters Date Type Department Care Team Description 10/25/2024 Telephone [facility] Medicine [address] [place] [address] [place] [phone] Rebecca Villalobos PA 10/04/2024 Telephone [facility] [address] [place] [address] [place] [phone] Rebecca Villalobos PA Medical Question/Miscellaneo us 08/31/2024 9:04 AM DISTRIBUTION LINEMAN - 08/31/2024 11:59 PM [employer]BUTION LINEM[employer] Hospital Encounter [facility] [id number] [place] [id number] Gifty Ma NP Spinal stenosis of lumbar region without neurogenic claudication (Primary Dx); Radiculopathy, lumbosacral region; Hypertension, essential Discharge Disposition: Discharge to home or self care 08/29/2024 Telephone [facility] [address] [place] [id number] Meaghan Abbasi RN from Last 3 Months Immunizations Immunization Administration Dates Next Due Influenza, Unspecified 05/19/2024,2022,05/07/2022(Deferred: Patient Refused),04/26/2022,11/24/2021(Deferred: Patient Refused),06/01/2019,05/11/2018 MMR 04/19/2019 Tdap 07/11/2024,07/05/2014,11/27/2012 Surgical History Surgery Date Site/Laterality Comments OTHER SURGICAL HISTORY discetomy APPENDECTOMY 2008 SPINE SURGERY 2012 and 2021 Medical History Medical History Date Comments Anxiety Hyperlipidemia Panic disorder Depression Hypothyroidism GERD (gastroesophageal reflux disease) Spinal stenosis DJD (degenerative joint disease) Sleep apnea Hypertension Family History Medical History Relation Name Comments Alcohol abuse Brother Rizwan Barajas Multiple sclerosis Brother Rizwan Barajas Arthritis Father Rizwan Barajas, Sr Cancer Father Rizwan Barajas, Sr Colon cancer Father Rizwan Barajas, Sr Hyperlipidemia Father Rizwan Barajas, Sr Diabetes Maternal Grandmother Jazmín Delfin Heart disease Maternal Grandmother Jazmín Delfin Obesity Maternal Grandmother Jazmín Delfin No Known Problems Mother Relation Name Status Comments Brother Rizwan Barajas Father Rizwan Barajas, Sr Maternal Grandmother Jazmín Delfin Mother Alive Social History Tobacco Use Types Packs/Day Years Used Date Smoking Tobacco: Some Days Cigarettes 0.1 25 Started: 05/31/1994; Last attempted to quit: 05/31/2019 Smokeless Tobacco: Never Tobacco Cessation:Ready to Q uit: Not Asked; Counseling Given: Not Answered Comments:I quit in 2019. Recently, started again. Alcohol Use Standard Drinks/Week Comments Yes 0 (1 standard drink = 0.6 oz pur e alcohol) AUDIT-C Answer Date Recorded Q1: How often do you have a drink containing alc ohol? Monthly or less 07/11/2024 Q2: How many drinks containi ng alcohol do you have on a typical day when you are drinking? 1 or 2 07/11/2024 Q3: How often do you have si x or more drinks on one occasion? Less than monthly 07/11/2024 PHQ-2 Answer Date Recorded PHQ-2 Total Score 0 07/11/2024 PHQ-9 Answer Date Recorded PHQ-9 Total Score 0 07/11/2024 Comments Unknown Sex and Gender Information Value Date Recorded Sex Assigned at Not on file Legal Sex Female 8:20 AM CDT Gender Identity Female 11/07/2020 9:20 AM CDT Sexual Orientation Straight 11/07/2020 9: 20 AM CDT Obstetrics History Last Filed Vital Signs Vital Sign Reading Time Taken Comments Blood Pressure 130/92 08/31/2024 9:24 AM DISTRIBUTION LINEMAN Pulse 76 08/31/2024 9:24 AM DISTRIBUTION LINEMAN Temperature 37 C (98.6 F) 07/11/2024 4:24 PM DISTRIBUTION LINEMAN Respiratory Rate 17 08/31/2024 9:24 AM DISTRIBUTION LINEMAN Oxygen Saturation 98% 08/31/2024 9:24 AM DISTRIBUTION LINEMAN Inhaled Oxygen Concentration - - Weight 87.8 kg (193 lb 9.6 oz) 07/11/2024 4:24 P M DISTRIBUTION LINEMAN Height 162.6 cm (5' 4 ) 07/11/2024 4:24 PM DISTRIBUTION LINEMAN Body Mass Index 33.23 07/11/2024 4:24 PM DISTRIBUTION LINEMAN Plan of Treatment Health Maintenance Due Date Last Done Comments Cervical Cancer Screening 1966 Hepatitis C Screening 1966 Hepatitis B Screening 1984 Pneumococcal vaccine <65 (1 of 2 - PCV) 1985 Zoster Vaccine (1 of 2) 2016 Covid-19 Vaccine (5 - 2023-2 5 season) 2024 06/03/2022, 06/17/2021, 09/12/2020, Additional history exists Breast Cancer Screening-Mammogram 06/22/2024 06/22/2023, 06/20/2023, 03/25/2022, Additional history exists Depression Screening 07/11/2025 07/11/2024, 07/11/2024, 03/14/2024, Additional history exists Regular Well Visit/Exam 18-64 07/11/2025, 06/22/2023, 01/20/2022, Additional history exists Colon Cancer Screening-Colonoscopy 10/11/2027 10/10/2022 DTaP/Tdap/Td Vaccine (4 - Td or Tdap) 07/11/2034 07/11/2024, 07/05/2014, 11/27/2012 Colon Cancer Screening-DNA Stool Discontinued 10/11/19, 07/29/2019 Influenza Vaccine Completed 05/19/2024, , 05/06/2023, Additional history exists Procedures Procedure Name Priority Date/Time Associated Diagnosis Comments SCREENING MAMMOGRAM BILATERAL W GURWINDER Schedule Routine, Read Routine (OP Routine) 06/20/2023 Breast cancer screening by mammogram COLONOSCOPY Routine 10/10/2022 from Last 3 Months or Most Recently Relevant to Health Maintenance Results * Screening Mammogram Bilateral W Gurwinder (06/20/2023) Anatomical Region Laterality Modality Breast Bilateral Mammography Rebecca SOLER IMG MAMMO PROCEDURES Final Result * COLONOSCOPY (10/10/2022) Historical Provider HEALTH MAINTENANCE Edited Result - Final from Last 3 Months or Most Recently Relevant to Health Maintenance Insurance [employer] [facility] [address] [place], [place] [address] [id number] [facility] [id number] Member Subscriber Plan / Payer (Ef fective 2021-Present) Name:Jazmín Dejesus Member ID:[id number] Relation to Subscriber:Self Name:Jazmín Dejesus Subscriber ID:[id number] Payer ID:[id number] Type:[employer] HMO/PPO Address: [address] [place] [id number] Care Teams Wine Bottle Inspector Relationship Specialty Start Date End Date Rebecca Villalobos PA [address] [place] [address] PCP - General Internal Medicine 11/29/18 Brown Martinez MD [address] [place] [address] Referring Physician Obstetrics and Gynecology 12/26/18
--- OUTSIDE RECORDS SUMMARY | 2024-11-12 09:29 | XMS_ITS | Referral Summary ---
Author Organization [address] Address [address] [place] [address] Care Team Providers Care Wire Frame Maker Name Role Phone Rebecca Villalobos Primary Care Provider [phone] Brown Martinez MD Unavailable [phone] Encounters Date Type Department Care Team Description 10/25/2024 Telephone [facility] [address] [place] [address] [place] [phone] Rebecca Villalobos PA 10/04/2024 Telephone [facility] Medicine [address] [place] [address] Road [address] [place] [phone] Rebecca Villalobos PA Medical Question/Miscellaneo us 08/31/2024 9:04 AM TRUSS DESIGNER - 08/31/2024 11:59 PM TRUSS DESIGNER Hospital Encounter [facility] [address] [place] [address] [phone] Gifty Ma NP Spinal stenosis of lumbar region without neurogenic claudication (Primary Dx); Radiculopathy, lumbosacral region; Hypertension, essential Discharge Disposition: Discharge to home or self care 08/29/2024 Telephone [facility] [address] [place] [address] [phone] Meaghan Abbasi RN from Last 3 Months Allergies Active Allergy Reactions Criticality Noted Date [...] 07/22/2024 Assessment & Plan (07/22/2024 1:01 PM TRUSS DESIGNER): Encouraged healthy lifestyle, good nutrition and exercise. Encouraged Calcium and Vitamin D and weight bearing exercise for bone health. Reviewed immunizations Reviewed age appropirate screenings. Need for Tdap vaccination 07/22/2024 Assessment & Plan (07/22/2024 1:01 PM TRUSS DESIGNER): Tdap updated in the office today Radiculopathy, lumbosacral region 04/25/2024 Spinal stenosis of lumbar re gion without neurogenic claudication 04/25/2024 Assessment & Plan (07/22/2024 12:59 PM TRUSS DESIGNER): Continue per Dr. Adorno. Currently using Nucynta for pain control Lumbosacral spondylosis without myelopathy 04/25 Chronic bilateral low back pain without sciatica 11/07/2023 Assessment & Plan (03/25/2024 12:11 AM CDT): Patient with persistent back pain. Has had multiple surgeries. Continue with pain management. She is considering stimulator for the pain. Has follow-up scheduled with Dr. Dow at [facility] in [place]. Will await his recommendations. If she desires a 2nd opinion she may call and will consider Dr. Malone at [facility] [place] Patient request short supply of tramadol as [...] hormones. Assessment & Plan (07/22/2024 12:59 PM TRUSS DESIGNER): 09/2023 --- 2.5cm right adrenal gland adenoma [...] 06/22/2023 Assessment & Plan (07/11/2024 4:32 PM TRUSS DESIGNER): Discussed the patient's BMI. The BMI is [...] provided. Assessment & Plan (06/22/2023 5:10 PM TRUSS DESIGNER): Discussed the patient's BMI. The BMI is above average. BMI management plan is completed. BMI Follow-up includes: nutrition counseling, exercise counseling and education provided. Breast cancer screening by mammogram 12/08/2022 Assessment & Plan (07/22/2024 1:01 PM TRUSS DESIGNER): Mammogram order provided Assessment & Plan (12/08/2022 [...] 06/29/2022 Assessment & Plan (07/22/2024 12:58 PM TRUSS DESIGNER): Bp is stable/in acceptable range for any co-morbidities. Encouraged to limit sodium intake and exercise for weight control. Bystolic 5 mg Assessment & Plan (06/22/2023 10:09 PM TRUSS DESIGNER): Bp is stable/in acceptable range for any co-morbidities. Encouraged to limit sodium intake and exercise for weight control. Continue Bystolic 5 Assessment & Plan (08/23/2022 1:15 PM TRUSS DESIGNER): Bp is stable/in acceptable range for any co-morbidities. Encouraged to limit sodium intake and exercise for weight control. Much better control with the Bystolic. Continue Bystolic 5 mg daily. Continue monitor closely Assessment & Plan (07/13/2022 10:45 AM TRUSS DESIGNER): Encouraged to limit sodium intake and exercise [...] instructions Assessment & Plan (06/29/2022 9:50 AM TRUSS DESIGNER): Encouraged to limit sodium intake and exercise [...] Will send her for repeat testing at [place] and will notify her of results as available. She was also encouraged to have her mom report to her pcp for monitoring. COOPER on CPAP 08/15/2019 Overview (08/15/2019): 2019--Sleep study ordered by Dentist - severe COOPER. Assessment & Plan (07/22/2024 12:57 PM TRUSS DESIGNER): Continue CPAP. Work with [place] Assessment & Plan (12/08/2023 3:06 PM CDT): Patient with known COOPER. Struggling with finding a mask that works well for her. Continue per [facility] and strongly encouraged her to try to find a mask that will help her. Reviewed the long-term sequela of untreated or undertreated sleep apnea. If she can not tolerate encouraged her to discuss other alternatives with sleep Medicine next time she sees them Assessment & Plan (11/07/2023 9:25 PM CDT): Patient states she had her sleep study done at [place] in July but still struggling with getting her machine and mask. Encouraged her to call and follow- up with the group at [place] sleep medicine. If she runs into a barrier she can call and we will try to help facilitate. Reminded her the importance of using her CPAP Assessment & Plan (06/22/2023 10:09 PM TRUSS DESIGNER): Continue with CPAP Assessment & Plan (12/08/2022 9:24 PM CDT): Using CPAP nightly as instructed. Continues to follow with sleep Medicine at [facility]. She is beginning to see improvement from wearing it on a regular basis Assessment & Plan (08/23/2022 1:15 PM TRUSS DESIGNER): Continue workup with [facility]. Still awaiting sleep results. Assessment & Plan [...] DME. Assessment & Plan (08/15/2019 8:17 PM TRUSS DESIGNER): This is a significant, separately identifiable problem that was evaluated and managed on the same day as the wellness exam Reviewed Sleep Apnea with patient including pathology, risk of untreated COOPER, Sleep study results and treatment options (Weight loss/CPAP/Dental Device). Encouraged weight loss. Will order CPAP device. Cigarette smoker 08/15/2019 Assessment & Plan (07/22/2024 12:56 PM TRUSS DESIGNER): Working hard on complete smoking cessation. Down [...] Reviewed options for assistance with cessation. Reviewed long-term sequela associated with smoking. Pt declines assistance at this time but may contact the office at anytime for further help as they desire. Assessment & Plan (11/07/2023 9:27 PM CDT): Encouraged smoking cessation. Discussed 3 minutes. Reviewed longwall machine operator helper sequela associated with smoking. Restart the Wellbutrin as it had really helped with reduction of smoking. Assessment & Plan (12/08/2022 9:24 PM CDT): Encouraged smoking cessation. Discussed 3 minutes. Reviewed options for assistance with cessation. Reviewed long-term sequela associated with smoking. Pt declines assistance at this time but may contact the office at anytime for further help as they desire. Assessment & Plan (11/28/2019 5:19 PM CDT): Encouraged smoking cessation. Discussed 3 minutes. Reviewed options for assistance with cessation. Reviewed long-term sequela associated with smoking. Pt declines assistance at this time but may contact the office at anytime for further help as they desire. Assessment & Plan (08/15/2019 8:13 PM TRUSS DESIGNER): Encouraged smoking cessation. Discussed 3 minutes. Reviewed options for assistance with cessation. Reviewed longwall machine operator helper sequela associated with smoking. Pt declines assistance at this time but may contact the office at anytime for further help as they desire. Obesity (BMI 30-39.9) 07/04/2019 Assessment & Plan (07/22/2024 12:57 PM TRUSS DESIGNER): Discussed the patient's BMI. The BMI is [...] provided. Assessment & Plan (08/15/2019 5:31 PM TRUSS DESIGNER): Obesity is unchanged. Discussed the patient's BMI. The BMI is above average. BMI management plan is completed. BMI Follow-up includes: nutrition counseling, exercise counseling and education provided. Assessment & Plan (07/04/2019 11:12 AM TRUSS DESIGNER): Obesity is unchanged. Discussed the patient's BMI. The BMI is above average. BMI management plan is completed. BMI Follow-up includes: nutrition counseling, exercise counseling and education provided. Vitamin D deficiency 12/26/2018 Assessment & Plan (07/22/2024 12:56 PM TRUSS DESIGNER): Supplement Assessment & Plan (03/25/2024 12:05 AM CDT): Supplement Assessment & Plan (06/22/2023 10:08 PM TRUSS DESIGNER): Supplement Assessment & Plan (02/02/2022 10:23 PM CDT): Supplement Assessment & Plan (08/15/2019 8:07 PM TRUSS DESIGNER): supplement Assessment & Plan (01/02/2019 10:29 PM CDT): Continue otc supplement Gastroesophageal reflux disease without esophagi tis 12/26/2018 Assessment & Plan (07/13/2022 10:44 AM TRUSS DESIGNER): Discussed GERD at length including anatomy, behavioral changes (anti-reflux maneuvers, avoid acidic foods like oranges and tomatoes., avoidance of spicy foods, avoid eating 3-4 hours before bed, elevation of the head of the bed), weight loss and medication options for treatment. Followup if sxs worsen or has hematochezia or hematemeis. She can continue with the omeprazole increasing it twice a day. Add Pepcid [id number] if needed. If she would have dark coffee-ground emesis or begin vomiting blood or notice dark tarry stool she is to call the office immediately for further evaluation. Assessment & Plan (05/07/2022 10:13 PM CDT): Continue PPI p.r.n. Assessment & Plan (02/02/2022 10:23 PM CDT): Stable with pantoprazole Assessment & Plan (08/15/2019 8:07 PM TRUSS DESIGNER): Stable with PPI Assessment & Plan (01/02/2019 10:30 PM CDT): Stable with PPI Mixed hyperlipidemia 12/26/2018 Assessment & Plan (07/22/2024 1:00 PM TRUSS DESIGNER): Encouraged patient to follow low fat/low chol diet like the Mediterranean diet. Increase good fats in the diet. Increase exercise. Monitor labs as needed. Continue simvastatin and Triglide Assessment & Plan (06/22/2023 10:08 PM TRUSS DESIGNER): Encouraged patient to follow low fat/low chol diet like the Mediterranean diet. Increase good fats in the diet. Increase exercise. Monitor labs as needed. Continue simvastatin and fenofibrate Assessment & Plan (08/23/2022 1:14 PM TRUSS DESIGNER): Encouraged patient to follow low fat/low chol [...] simvastatin Assessment & Plan (08/15/2019 8:08 PM TRUSS DESIGNER): Encouraged patient to continue low fat/low chol diet. Continue exercise. Increase good fats in the diet. Monitor labs as needed. Continue fenofibrate and statin Assessment & Plan (01/02/2019 10:30 PM CDT): Encouraged patient to continue low fat/low chol diet. Continue exercise. Increase good fats in the diet. Monitor labs as needed. Continue statin Anxiety 12/26/2018 Assessment & Plan (06/22/2023 10:09 PM TRUSS DESIGNER): Continue per Psychiatry. Currently on clonazepam Lexapro and Wellbutrin XL450 Assessment & Plan (02/02/2022 10:23 PM CDT): Continue per Psychiatry. Stable with Wellbutrin Klonopin and Lexapro Assessment & Plan (08/15/2019 8:08 PM TRUSS DESIGNER): Continue per psychiatry Assessment & Plan (01/02/2019 10:31 PM CDT): Continue with psychiatrist. History of intestinal obstruction 12/26/2018 Stage 2 chronic kidney disease 12/26/2018 Assessment & Plan (01/02/2019 10:30 PM CDT): Avoid nephrotoxic drugs including NSAIDs. Monitor labs. Moderate episode of recurrent major depressive d isorder 12/26/2018 Assessment & Plan (07/22/2024 12:56 PM TRUSS DESIGNER): Depression symptoms have been stable with Klonopin [...] pharmacy. Assessment & Plan (06/22/2023 10:09 PM TRUSS DESIGNER): Continue per Psychiatry. Currently on clonazepam Lexapro and Wellbutrin XL450 Assessment & Plan (05/07/2022 9:56 PM CDT): Managed by Psychiatry Assessment & Plan (02/02/2022 10:24 PM CDT): Continue per Psychiatry. Stable with Wellbutrin Klonopin and Lexapro Assessment & Plan (08/15/2019 8:09 PM TRUSS DESIGNER): Managed by psychiatry Assessment & Plan (01/02/2019 10:31 PM CDT): Continue with psychitrist Acquired hypothyroidism 12/28/2017 Assessment & Plan (07/22/2024 12:56 PM TRUSS DESIGNER): Continue levothyroxine 50 mcg. Monitor labs. Assessment & Plan (03/25/2024 12:06 AM CDT): Continue levothyroxine 50 mcg. Monitor labs. Assessment & Plan (06/22/2023 10:08 PM TRUSS DESIGNER): Continue levothyroxine. Monitor labs. Assessment & Plan (08/23/2022 1:14 PM TRUSS DESIGNER): Continue levothyroxine. Monitor labs. Assessment & Plan (05/07/2022 9:52 PM CDT): Continue levothyroxine. Monitor labs. Assessment & Plan (02/02/2022 10:23 PM CDT): Continue levothyroxine. Monitor labs. Assessment & Plan (08/15/2019 8:07 PM TRUSS DESIGNER): Continue levothyroxine. Recheck labs Assessment & Plan [...] 12/28/2017 Assessment & Plan (07/22/2024 12:59 PM TRUSS DESIGNER): Pre-diabetes/hyperglycemia is a precursor to Dm. Stressed [...] diabetes. Assessment & Plan (06/22/2023 10:08 PM TRUSS DESIGNER): Pre-diabetes/hyperglycemia is a precursor to Dm. Stressed importance of working on diet (decrease your simple sugars and one carbohydrate with each meal) and increase you exercise to achieve weight loss and this will help prevent you from progressing to diabetes. Assessment & Plan (08/23/2022 1:16 PM TRUSS DESIGNER): Pre-diabetes/hyperglycemia is a precursor to Dm. Stressed [...] diabetes. Assessment & Plan (08/15/2019 8:09 PM TRUSS DESIGNER): Pre-diabetes is a precursor to Dm. Stressed [...] 024 Assessment & Plan (06/22/2023 10:10 PM TRUSS DESIGNER): Encouraged healthy lifestyle, good nutrition and exercise. Encouraged Calcium and Vitamin D and weight bearing exercise for bone health. Reviewed immunizations Reviewed age appropirate screenings. Abnormal CBC 06/22/2023 07/22/2024 Assessment & Plan (06/22/2023 10:08 PM TRUSS DESIGNER): This is a significant, separately identifiable problem [...] 11/07/2023 Assessment & Plan (06/22/2023 10:21 PM TRUSS DESIGNER): This is a significant, separately identifiable problem [...] Wegovy Assessment & Plan (06/22/2023 10:10 PM TRUSS DESIGNER): Discussed the patient's BMI. The BMI is [...] 12/08/2022 Assessment & Plan (08/23/2022 1:15 PM TRUSS DESIGNER): Discussed the patient's BMI. The BMI is above average. BMI management plan is completed. BMI Follow-up includes: nutrition counseling, exercise counseling and education provided. Assessment & Plan (07/01/2022 2:36 PM TRUSS DESIGNER): Obesity is unchanged. Discussed the patient's BMI. The BMI is above average. BMI management plan is completed. BMI Follow-up includes: nutrition counseling, exercise counseling and education provided. BMI 35.0-35.9,adult 07/01/2022 12/09/19 23 Assessment & Plan (08/23/2022 1:16 PM TRUSS DESIGNER): Discussed the patient's BMI. The BMI is above average. BMI management plan is completed. BMI Follow-up includes: nutrition counseling, exercise counseling and education provided. Assessment & Plan (07/01/2022 2:37 PM TRUSS DESIGNER): Obesity is unchanged. Discussed the patient's BMI. [...] sooner if worsening. We discussed appt with kickboxing instructor if labs normal for further evaluation and biopsy. Suprapatellar bursitis 05/31/202007/22 Assessment & Plan (06/02/2020 11:20 AM TRUSS DESIGNER): Keep area elevated and may use a compression strap to the area. Medrol dose pack. Reviewed risks and benefits of steroid use. Discussed drainage but will hold off and try the oral steroids as not significantly enlarged. If redness increases, she is to call and may consider antibiotic. Annual physical exam 08/15/2019 020 Assessment & Plan (08/15/2019 8:08 PM TRUSS DESIGNER): Encouraged healthy lifestyle, good nutrition and exercise. Encouraged Calcium and Vitamin D and weight bearing exercise for bone health. Reviewed immunizations Reviewed age appropirate screenings. Other fatigue 08/15/2019 02/02/2022 Assessment & Plan (08/15/2019 8:10 PM TRUSS DESIGNER): Probably multifactorial. Check labs and followup to [...] provided. Assessment & Plan (08/15/2019 5:31 PM TRUSS DESIGNER): Obesity is unchanged. Discussed the patient's BMI. The BMI is above average. BMI management plan is completed. BMI Follow-up includes: nutrition counseling, exercise counseling and education provided. Assessment & Plan (07/04/2019 11:11 AM TRUSS DESIGNER): Obesity is unchanged. Discussed the patient's BMI. The BMI is above average. BMI management plan is completed. BMI Follow-up includes: nutrition counseling, exercise counseling and education provided. Acute non-recurrent maxillary sinusitis 07/04/2019 08/15/2019 Assessment & Plan (07/04/2019 12:01 PM TRUSS DESIGNER): Start antibiotic, antihistamine, Mucinex and Steroid nasal spray. Push fluids. Rest. Supportive care. If sxs worsen or don\'t improve, pt is to followup in the office. Impacted cerumen of left ear 07/04/2019 11/28/2019 Assessment & Plan (07/04/2019 12:02 PM TRUSS DESIGNER): May use otc Debrox. If doesn't resolve, followup after completing the antibiotic and will clean out the ear. Colon cancer screening 01/02/201902/02 Immunizations Immunization Administration Dates Next Due Influenza, Unspecified 05/19/2024,2022,05/07/2022(Deferred: Patient Refused),04/26/2022,11/24/2021(Deferred: Patient Refused),06/01/2019,05/11/2018 MMR 04/19/2019 Tdap 07/11/2024,07/05/2014,11/27/2012 Social History Tobacco Use Types Packs/Day Years [...] Orientation Straight 11/07/2020 9: 20 AM CDT Last Filed Vital Signs Vital Sign Reading Time Taken Comments Blood Pressure 130/92 08/31/2024 9:24 AM TRUSS DESIGNER Pulse 76 08/31/2024 9:24 AM TRUSS DESIGNER Temperature 37 C (98.6 F) 07/11/2024 4:24 PM TRUSS DESIGNER Respiratory Rate 17 08/31/2024 9:24 AM TRUSS DESIGNER Oxygen Saturation 98% 08/31/2024 9:24 AM TRUSS DESIGNER Inhaled Oxygen Concentration - - Weight 87.8 kg (193 lb 9.6 oz) 07/11/2024 4:24 P M TRUSS DESIGNER Height 162.6 cm (5' 4 ) 07/11/2024 4:24 PM TRUSS DESIGNER Body Mass Index 33.23 07/11/2024 4:24 PM TRUSS DESIGNER Plan of Treatment Not on file Procedures Procedure Name Priority Date/Time Associated Diagnosis Comments SCREENING MAMMOGRAM BILATERAL W GURWINDER Schedule Routine, Read Routine (OP Routine) 06/20/2023 Breast cancer screening by mammogram HM COLONOSCOPY Routine 10/10/2022 from Last 3 Months or Most Recently Relevant to Health Maintenance Results * Screening Mammogram Bilateral W Gurwinder (06/20/2023) Anatomical Region Laterality Modality Breast Bilateral Mammography Rebecca SOLER IMG MAMMO PROCEDURES Final Result * HM COLONOSCOPY (10/10/2022) Historical Provider HEALTH MAINTENANCE Edited Result - Final from Last 3 Months or Most Recently Relevant to Health Maintenance Insurance [email or web address] [facility] Member Subscriber Plan / Payer ( fective 2021-Present) Name:Jazmín Dejesus Member ID:[id number] Relation to Subscriber:Self Name:Jazmín Dejesus Subscriber ID:[id number] Payer ID:[id number] Type:[employer] HMO/PPO Address: [address] [place] [phone] [facility] [id number] Care Teams Wire Frame Maker Relationship Specialty Start Date End Date Rebecca Villalobos PA [address] [place] [address] PCP - General Internal Medicine 11/29/18 Brown Martinez MD [address] [place] [address] Referring Physician Obstetrics and Gynecology 12/26/18
--- OUTSIDE RECORDS SUMMARY | 2024-11-12 09:29 | XMS_ITS | Encounter Summary ---
Author Organization [facility] Care Team Providers Care Safety Patrol Officer Name Role Phone Rebecca Villalobos Primary Care Provider [phone] Brown Martinez MD Unavailable [phone] Encounter Details Date Type Department Care Team (Latest Contact Info) Description 01/11/2018 Orders Only [facility]INCON[facility] ProviderGiovani MD [address] [place] [id number] Social History Tobacco Use Types Packs/Day Years Used Date Smoking Tobacco: Every Day Smokeless Tobacco: Never Alcohol Use Standard Drinks/Week Comments Yes 0 (1 standard drink = 0.6 oz pur e alcohol) Comments Unknown Sex and Gender Information Value Date Recorded Sex Assigned at Not on file Legal Sex Female 8:20 AM CDT Gender Identity Female 11/07/2020 9:20 AM CDT Sexual Orientation Straight 11/07/2020 9: 20 AM CDT documented as of this encounter Plan of Treatment Not on file documented as of this encounter Procedures Procedure Name Priority Date/Time Associated Diagnosis Comments SCAN - LABS 03/16/2018 12:00 AM CDT documented in this encounter Results * SCAN - LABS (03/16/2018 12:00 AM CDT) Narrative 03/16/2018 12:00 AM CDT Ordered by an unspecified provider. us Historical Provider Final Res ult documented in this encounter Visit Diagnoses Not on filedocumented in this encounter Additional Health Concerns Infection Onset Date Last Indicated Resolved Time COVID19 11/08/2020 11/08/2020 11/22/2020 3:05 AM CDT COVID: Recovered Comment:Added based on recent COVID infection. 11/22/2020 01/09/2021 03/22/2021 3:05 AM C DT COVID: Suspected 07/11/2023 07/11/2023 07/11/2023 3:18 PM BANKING MANAGER documented as of this encounter Care Teams Safety Patrol Officer Relationship Specialty Start Date End Date Rebecca Villalobos PA [address] [place] [address] PCP - General Internal Medicine 11/29/18 Brown Martinez MD [address] [place] [address] Referring Physician Obstetrics and Gynecology 12/26/18 documented as of this encounter
[2024-11-12 09:59] LABS: Estimated Glomerular Filt Rate 46
== END 2024-11-12 09:26 | disposition home or self-care (01) ==
PROVIDERS: PCP Physician Assistant; Visit Provider Physician Assistant
DX: E27.8 Other specified disorders of adrenal gland (principal); K76.0 Fatty (change of) liver, not elsewhere classified
CPT/HCPCS: 74170; Q9967

== ENCOUNTER 2025-06-06 14:07 | Outpatient (CLI) | payer OTHER, SELFPAY ==
--- NOTE | ~2025-06-06 | MM_ITS ---
EXAMINATION: MM screening sayra BI w laurence HISTORY: Screening TECHNIQUE: Craniocaudal and mediolateral oblique 3-D tomosynthesis images were obtained and synthetic 2-D images were generated. CAD analysis was submitted and interpreted. COMPARISON: Comparison to multiple prior studies sequentially, with oldest reviewed study dated 10/10/2016. BREAST PARENCHYMAL COMPOSITION: Not Dense: The breasts are almost entirely fatty. FINDINGS: There is no evidence of suspicious mass, calcification, or architectural distortion to suggest malignancy in either breast. There has been no suspicious interval change. IMPRESSION: 1. No mammographic evidence of malignancy. 2. Recommend routine screening mammography in one year. BI-RADS Category 1: Negative Reviewed, dictated and finalized at location B. 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
--- OUTSIDE RECORDS SUMMARY | 2025-06-06 14:14 | XMS_ITS | Clinical Summary ---
Author Organization [facility] Address [address] [place] [address] Care Team Providers Care Philosophy And Religion Instructor Name Role Phone Rebecca Villalobos Primary Care Provider [phone] Brown Martinez MD Unavailable [phone] Allergies Active Allergy Reactions Criticality Noted Date Comments Amoxicillin-Pot Clavulanate Other (See comments) Low 12/28/2017 c-diff Medications cholecalciferol (VITAMIN D-3) 1,000 unit capsule Take 1 capsule (1,000 Units total) by mouth daily Active acetaminophen (TYLENOL) 500 mg tablet Take 600 mg by mouth 2 (two) times a day Active clonazePAM (KlonoPIN) 0.5 mg tablet Take 1 tablet (0.5 mg total) by mouth 2 (two) times a day 60 tablet 024 Active Additional Information Patient taking differently:0.5 mg oral2 times daily PRN, Reported on 05/02/2025 ibuprofen 200 mg tab/cap Take by mouth every 8 (eight) hours as needed for pain Takes PRN if really needed Active levothyroxine (SYNTHROID) 50 mcg tabletIndications :Acquired hypothyroidism TAKE 1 TABLET(50 MCG) BY MOUTH DAILY 100 tablet 1 025 Active fenofibrate (TRIGLIDE) 160 mg tabletIndications :Mixed hyperlipidemia TAKE 1 TABLET(160 MG) BY MOUTH DAILY 90 tablet 1 025 Active simvastatin (ZOCOR) 10 mg tablet TAKE 1 TABLET(10 MG) BY MOUTH DAILY 90 tablet 1 025 Active escitalopram (LEXAPRO) 20 mg tablet TAKE 1 TABLET(20 MG) BY MOUTH DAILY 90 tablet 1 025 Active valACYclovir (VALTREX) 500 mg tabletIndications :Herpes simplex Take 1 tablet (500 mg total) by mouth daily 90 tablet 1 025 Active omeprazole (PriLOSEC) 40 mg capsuleIndication s:Gastroesophagea l reflux disease without esophagitis TAKE 1 CAPSULE(40 MG) BY MOUTH TWICE DAILY 180 capsule 1 025 Active tapentadoL (NUCYNTA) 50 mg tabletIndications :Acute Pain May take 1-2 tablets daily prn pain 30 tablet 025 Active nebivoloL (BYSTOLIC) 5 mg tablet TAKE 1 TABLET(5 MG) BY MOUTH DAILY 90 tablet 1 025 Active buPROPion XL (WELLBUTRIN XL) 150 mg 24 hr tabletIndications :Moderate episode of recurrent major depressive disorder (HCC) Take 1 tablet (150 mg total) by mouth every morning With 300 mg tablet to equal 450 mg daily 90 tablet 1 025 2025 Active buPROPion XL (WELLBUTRIN XL) 300 mg 24 hr tabletIndications :Moderate episode of recurrent major depressive disorder (HCC) Take 1 tablet (300 mg total) by mouth every morning With 150 mg tablet to equal 450 mg daily 90 tablet 1 025 2025 Active tirzepatide, weight loss, (ZEPBOUND) 12.5 mg/0.5 mL pen injectorIndicatio ns:Weight Loss Management for Obese Patient (BMI >= 30) Inject 0.5 mL (12.5 mg total) under the skin every 7 days 2 mL 025 Active nebivoloL (BYSTOLIC) 5 mg tablet TAKE 1 TABLET(5 MG) BY MOUTH DAILY 90 tablet 1 025 2024 Discontinued tirzepatide, weight loss, (ZEPBOUND) 10 mg/0.5 mL pen injectorIndicatio ns:Weight Loss Management for Obese Patient (BMI >= 30) Inject 0.5 mL (10 mg total) under the skin every 7 days 2 mL 1 025 2024 Discontinued buPROPion XL (WELLBUTRIN XL) 450 mg 24 hr tablet Take 1 tablet (450 mg total) by mouth daily 90 tablet 1 025 2024 Discontinued Active Problems Problem Noted Date Diagnosed Date Annual physical exam 07/22/2024 Assessment & Plan (07/22/2024 1:01 PM ENGROSSER): Encouraged healthy lifestyle, good nutrition and exercise. Encouraged Calcium and Vitamin D and weight bearing exercise for bone health. Reviewed immunizations Reviewed age appropirate screenings. Need for Tdap vaccination 07/22/2024 Assessment & Plan (07/22/2024 1:01 PM ENGROSSER): Tdap updated in the office today Radiculopathy, lumbosacral region 04/25/2024 Spinal stenosis of lumbar re gion without neurogenic claudication 04/25/2024 Assessment & Plan (07/22/2024 12:59 PM ENGROSSER): Continue per Dr. Adorno. Currently using Nucynta for pain control Lumbosacral spondylosis without myelopathy 04/25 Chronic bilateral low back pain without sciatica 11/07/2023 Assessment & Plan (03/25/2024 12:11 AM CDT): Patient with persistent back pain. Has had multiple surgeries. Continue with pain management. She is considering stimulator for the pain. Has follow-up scheduled with Dr. Dow at [facility] in [place]. Will await his recommendations. If she desires a 2nd opinion she may call and will consider Dr. Malone at [facility] and [place] Patient request short supply of tramadol as [...] hormones. Assessment & Plan (07/22/2024 12:59 PM ENGROSSER): 09/2023 --- 2.5cm right adrenal gland adenoma [...] to get DST. Will await results) BMI 34.0-34.9,adult 06/22/2023 Assessment & Plan (05/01/2025 4:12 PM CDT): Discussed the patient's BMI. The BMI is above average. BMI management plan is completed. BMI Follow-up includes: nutrition counseling, exercise counseling and education provided. Assessment & Plan (02/06/2025 2:57 PM CDT): Discussed the patient's BMI. The BMI is above average. BMI management plan is completed. BMI Follow-up includes: nutrition counseling, exercise counseling and education provided. Assessment & Plan (07/11/2024 4:32 PM ENGROSSER): Discussed the patient's BMI. The BMI is [...] provided. Assessment & Plan (06/22/2023 5:10 PM ENGROSSER): Discussed the patient's BMI. The BMI is above average. BMI management plan is completed. BMI Follow-up includes: nutrition counseling, exercise counseling and education provided. Breast cancer screening by mammogram 12/08/2022 Assessment & Plan (07/22/2024 1:01 PM ENGROSSER): Mammogram order provided Assessment & Plan (12/08/2022 [...] 06/29/2022 Assessment & Plan (07/22/2024 12:58 PM ENGROSSER): Bp is stable/in acceptable range for any co-morbidities. Encouraged to limit sodium intake and exercise for weight control. Bystolic 5 mg Assessment & Plan (06/22/2023 10:09 PM ENGROSSER): Bp is stable/in acceptable range for any co-morbidities. Encouraged to limit sodium intake and exercise for weight control. Continue Bystolic 5 Assessment & Plan (08/23/2022 1:15 PM ENGROSSER): Bp is stable/in acceptable range for any co-morbidities. Encouraged to limit sodium intake and exercise for weight control. Much better control with the Bystolic. Continue Bystolic 5 mg daily. Continue monitor closely Assessment & Plan (07/13/2022 10:45 AM ENGROSSER): Encouraged to limit sodium intake and exercise [...] instructions Assessment & Plan (06/29/2022 9:50 AM ENGROSSER): Encouraged to limit sodium intake and exercise [...] concerns she is to follow up sooner. Fatigue 05/07/2022 Assessment & Plan (02/15/2025 1:12 AM CDT): Probably multifactorial. Check labs and followup to re-evaluate Assessment & Plan (05/07/2022 9:57 PM CDT): Probably multifactorial. Check labs and followup to re-evaluate History of COVID-19 11/07/2020 Assessment & Plan (11/07/2020 11:56 AM CDT): We discussed possibility of a false positive, however she was advised to remain quarantined per CDC guidelines. She was advised to have follow this protocol as well. Will send her for repeat testing at [place] and will notify her of results as available. She was also encouraged to have her mom report to her pcp for monitoring. COOPER on CPAP 08/15/2019 Overview (08/15/2019): 2019--Sleep study ordered by Dentist - severe COOPER. Assessment & Plan (07/22/2024 12:57 PM ENGROSSER): Continue CPAP. Work with [facility] Assessment & Plan (12/08/2023 3:06 PM CDT): Patient with known COOPER. Struggling with finding a mask that works well for her. Continue per [facility] and strongly encouraged her to try to find a mask that will help her. Reviewed the long-term sequela of untreated or undertreated sleep apnea. If she can not tolerate encouraged her to discuss other alternatives with sleep Medicine next time she sees them Assessment & Plan (11/07/2023 9:25 PM CDT): Patient states she had her sleep study done at [facility] in July but still struggling with getting her machine and mask. Encouraged her to call and follow- up with the group at [facility]. If she runs into a barrier she can call and we will try to help facilitate. Reminded her the importance of using her CPAP Assessment & Plan (06/22/2023 10:09 PM ENGROSSER): Continue with CPAP Assessment & Plan (12/08/2022 9:24 PM CDT): Using CPAP nightly as instructed. Continues to follow with sleep Medicine at [facility]. She is beginning to see improvement from wearing it on a regular basis Assessment & Plan (08/23/2022 1:15 PM ENGROSSER): Continue workup with [facility]. Still awaiting sleep results. Assessment & [...] DME. Assessment & Plan (08/15/2019 8:17 PM ENGROSSER): This is a significant, separately identifiable problem that was evaluated and managed on the same day as the wellness exam Reviewed Sleep Apnea with patient including pathology, risk of untreated COOPER, Sleep study results and treatment options (Weight loss/CPAP/Dental Device). Encouraged weight loss. Will order CPAP device. Cigarette smoker 08/15/2019 Assessment & Plan (07/22/2024 12:56 PM ENGROSSER): Working hard on complete smoking cessation. Down [...] Encouraged smoking cessation. Discussed 3 minutes. Reviewed long-term sequela associated with smoking. Restart the Wellbutrin [...] Reviewed options for assistance with cessation. 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 Pt declines assistance at this time but may contact the office at anytime for further help as they desire. Assessment & Plan (08/15/2019 8:13 PM ENGROSSER): Encouraged smoking cessation. Discussed 3 minutes. Reviewed options for assistance with cessation. Reviewed long-term sequela associated with smoking. Pt declines assistance at this time but may contact the office at anytime for further help as they desire. Obesity (BMI 30-39.9) 07/04/2019 Assessment & Plan (05/01/2025 4:12 PM CDT): Discussed the patient's BMI. The BMI is above average. BMI management plan is completed. BMI Follow-up includes: nutrition counseling, exercise counseling and education provided. Assessment & Plan (02/15/2025 1:12 AM CDT): Discussed the patient's BMI. The BMI is above average. BMI management plan is completed. BMI Follow-up includes: nutrition counseling, exercise counseling and education provided. She has been on Wegovy. Started Semaglutide in early 2022 at about 209#. Maximized the dose to 2.4 and down to 191# Has intolerability with GI side effects on the 2.4 so decreased to the 1.7mg Doesn't see the food noise control that she had at the higher dose. Inquires about Zepbound. Start at 5mg as a transition from the 1.7 WEgovy Assessment & Plan (07/22/2024 12:57 PM ENGROSSER): Discussed the patient's BMI. The BMI is [...] provided. Assessment & Plan (08/15/2019 5:31 PM ENGROSSER): Obesity is unchanged. Discussed the patient's BMI. The BMI is above average. BMI management plan is completed. BMI Follow-up includes: nutrition counseling, exercise counseling and education provided. Assessment & Plan (07/04/2019 11:12 AM ENGROSSER): Obesity is unchanged. Discussed the patient's BMI. The BMI is above average. BMI management plan is completed. BMI Follow-up includes: nutrition counseling, exercise counseling and education provided. Vitamin D deficiency 12/26/2018 Assessment & Plan (07/22/2024 12:56 PM ENGROSSER): Supplement Assessment & Plan (03/25/2024 12:05 AM CDT): Supplement Assessment & Plan (06/22/2023 10:08 PM ENGROSSER): Supplement Assessment & Plan (02/02/2022 10:23 PM CDT): Supplement Assessment & Plan (08/15/2019 8:07 PM ENGROSSER): supplement Assessment & Plan (01/02/2019 10:29 PM CDT): Continue otc supplement Gastroesophageal reflux disease without esophagi tis 12/26/2018 Assessment & Plan (07/13/2022 10:44 AM ENGROSSER): Discussed GERD at length including anatomy, behavioral changes (anti-reflux maneuvers, avoid acidic foods like oranges and tomatoes., avoidance of spicy foods, avoid eating 3-4 hours before bed, elevation of the head of the bed), weight loss and medication options for treatment. Followup if sxs worsen or has hematochezia or hematemeis. She can continue with the omeprazole increasing it twice a day. Add Pepcid [id number] if needed. If she would have dark coffee-ground emesis or begin vomiting blood or notice dark tarry stool she is to call the office immediately for further evaluation. Assessment & Plan (05/07/2022 10:13 PM CDT): Continue PPI p.r.n. Assessment & Plan (02/02/2022 10:23 PM CDT): Stable with pantoprazole Assessment & Plan (08/15/2019 8:07 PM ENGROSSER): Stable with PPI Assessment & Plan (01/02/2019 10:30 PM CDT): Stable with PPI Mixed hyperlipidemia 12/26/2018 Assessment & Plan (02/15/2025 1:11 AM CDT): Encouraged patient to follow low fat/low chol diet like the Mediterranean diet. Increase good fats in the diet. Increase exercise. Monitor labs as needed. [ Assessment & Plan (07/22/2024 1:00 PM ENGROSSER): Encouraged patient to follow low fat/low chol diet like the Mediterranean diet. Increase good fats in the diet. Increase exercise. Monitor labs as needed. Continue simvastatin and Triglide Assessment & Plan (06/22/2023 10:08 PM ENGROSSER): Encouraged patient to follow low fat/low chol diet like the Mediterranean diet. Increase good fats in the diet. Increase exercise. Monitor labs as needed. Continue simvastatin and fenofibrate Assessment & Plan (08/23/2022 1:14 PM ENGROSSER): Encouraged patient to follow low fat/low chol [...] simvastatin Assessment & Plan (08/15/2019 8:08 PM ENGROSSER): Encouraged patient to continue low fat/low chol diet. Continue exercise. Increase good fats in the diet. Monitor labs as needed. Continue fenofibrate and statin Assessment & Plan (01/02/2019 10:30 PM CDT): Encouraged patient to continue low fat/low chol diet. Continue exercise. Increase good fats in the diet. Monitor labs as needed. Continue statin Anxiety 12/26/2018 Assessment & Plan (06/22/2023 10:09 PM ENGROSSER): Continue per Psychiatry. Currently on clonazepam Lexapro and Wellbutrin XL450 Assessment & Plan (02/02/2022 10:23 PM CDT): Continue per Psychiatry. Stable with Wellbutrin Klonopin and Lexapro Assessment & Plan (08/15/2019 8:08 PM ENGROSSER): Continue per psychiatry Assessment & Plan (01/02/2019 10:31 PM CDT): Continue with psychiatrist. History of intestinal obstruction 12/26/2018 Stage 2 chronic kidney disease 12/26/2018 Assessment & Plan (01/02/2019 10:30 PM CDT): Avoid nephrotoxic drugs including NSAIDs. Monitor labs. Moderate episode of recurrent major depressive d isorder 12/26/2018 Assessment & Plan (07/22/2024 12:56 PM ENGROSSER): Depression symptoms have been stable with Klonopin [...] pharmacy. Assessment & Plan (06/22/2023 10:09 PM ENGROSSER): Continue per Psychiatry. Currently on clonazepam Lexapro and Wellbutrin XL450 Assessment & Plan (05/07/2022 9:56 PM CDT): Managed by Psychiatry Assessment & Plan (02/02/2022 10:24 PM CDT): Continue per Psychiatry. Stable with Wellbutrin Klonopin and Lexapro Assessment & Plan (08/15/2019 8:09 PM ENGROSSER): Managed by psychiatry Assessment & Plan (01/02/2019 10:31 PM CDT): Continue with psychitrist Acquired hypothyroidism 12/28/2017 Assessment & Plan (02/15/2025 1:11 AM CDT): Continue levothyroxine. Monitor labs. Assessment & Plan (07/22/2024 12:56 PM ENGROSSER): Continue levothyroxine 50 mcg. Monitor labs. Assessment & Plan (03/25/2024 12:06 AM CDT): Continue levothyroxine 50 mcg. Monitor labs. Assessment & Plan (06/22/2023 10:08 PM ENGROSSER): Continue levothyroxine. Monitor labs. Assessment & Plan (08/23/2022 1:14 PM ENGROSSER): Continue levothyroxine. Monitor labs. Assessment & Plan (05/07/2022 9:52 PM CDT): Continue levothyroxine. Monitor labs. Assessment & Plan (02/02/2022 10:23 PM CDT): Continue levothyroxine. Monitor labs. Assessment & Plan (08/15/2019 8:07 PM ENGROSSER): Continue levothyroxine. Recheck labs Assessment & Plan [...] been taken. Pre-diabetes 12/28/2017 Assessment & Plan (02/15/2025 1:11 AM CDT): Pre-diabetes/hyperglycemia is a precursor to Dm. Stressed importance of working on diet (decrease your simple sugars and one carbohydrate with each meal) and increase you exercise to achieve weight loss and this will help prevent you from progressing to diabetes. Assessment & Plan (07/22/2024 12:59 PM ENGROSSER): Pre-diabetes/hyperglycemia is a precursor to Dm. Stressed [...] diabetes. Assessment & Plan (06/22/2023 10:08 PM ENGROSSER): Pre-diabetes/hyperglycemia is a precursor to Dm. Stressed importance of working on diet (decrease your simple sugars and one carbohydrate with each meal) and increase you exercise to achieve weight loss and this will help prevent you from progressing to diabetes. Assessment & Plan (08/23/2022 1:16 PM ENGROSSER): Pre-diabetes/hyperglycemia is a precursor to Dm. Stressed [...] diabetes. Assessment & Plan (08/15/2019 8:09 PM ENGROSSER): Pre-diabetes is a precursor to Dm. Stressed [...] 024 Assessment & Plan (06/22/2023 10:10 PM ENGROSSER): Encouraged healthy lifestyle, good nutrition and exercise. Encouraged Calcium and Vitamin D and weight bearing exercise for bone health. Reviewed immunizations Reviewed age appropirate screenings. Abnormal CBC 06/22/2023 07/22/2024 Assessment & Plan (06/22/2023 10:08 PM ENGROSSER): This is a significant, separately identifiable problem [...] 11/07/2023 Assessment & Plan (06/22/2023 10:21 PM ENGROSSER): This is a significant, separately identifiable problem [...] Wegovy Assessment & Plan (06/22/2023 10:10 PM ENGROSSER): Discussed the patient's BMI. The BMI is [...] 12/08/2022 Assessment & Plan (08/23/2022 1:15 PM ENGROSSER): Discussed the patient's BMI. The BMI is above average. BMI management plan is completed. BMI Follow-up includes: nutrition counseling, exercise counseling and education provided. Assessment & Plan (07/01/2022 2:36 PM ENGROSSER): Obesity is unchanged. Discussed the patient's BMI. The BMI is above average. BMI management plan is completed. BMI Follow-up includes: nutrition counseling, exercise counseling and education provided. BMI 35.0-35.9,adult 07/01/2022 12/09/19 23 Assessment & Plan (08/23/2022 1:16 PM ENGROSSER): Discussed the patient's BMI. The BMI is above average. BMI management plan is completed. BMI Follow-up includes: nutrition counseling, exercise counseling and education provided. Assessment & Plan (07/01/2022 2:37 PM ENGROSSER): Obesity is unchanged. Discussed the patient's BMI. [...] the Cologuard if she desires to repeat. Laceration of finger without foreign body without [...] to work. Note provided indicating RTW on 8/24 without restriction. Assessment & Plan (03/17/2021 10:34 [...] sooner if worsening. We discussed appt with taker down if labs normal for further evaluation and biopsy. Suprapatellar bursitis 05/31/202007/22 Assessment & Plan (06/02/2020 11:20 AM ENGROSSER): Keep area elevated and may use a compression strap to the area. Medrol dose pack. Reviewed risks and benefits of steroid use. Discussed drainage but will hold off and try the oral steroids as not significantly enlarged. If redness increases, she is to call and may consider antibiotic. Annual physical exam 08/15/2019 05 020 Assessment & Plan (08/15/2019 8:08 PM ENGROSSER): Encouraged healthy lifestyle, good nutrition and exercise. Encouraged Calcium and Vitamin D and weight bearing exercise for bone health. Reviewed immunizations Reviewed age appropirate screenings. Other fatigue 08/15/2019 02/02/2022 Assessment & Plan (08/15/2019 8:10 PM ENGROSSER): Probably multifactorial. Check labs and followup to [...] provided. Assessment & Plan (08/15/2019 5:31 PM ENGROSSER): Obesity is unchanged. Discussed the patient's BMI. The BMI is above average. BMI management plan is completed. BMI Follow-up includes: nutrition counseling, exercise counseling and education provided. Assessment & Plan (07/04/2019 11:11 AM ENGROSSER): Obesity is unchanged. Discussed the patient's BMI. The BMI is above average. BMI management plan is completed. BMI Follow-up includes: nutrition counseling, exercise counseling and education provided. Acute non-recurrent maxillary sinusitis 07/04/2019 08/15/2019 Assessment & Plan (07/04/2019 12:01 PM ENGROSSER): Start antibiotic, antihistamine, Mucinex and Steroid nasal spray. Push fluids. Rest. Supportive care. If sxs worsen or don\'t improve, pt is to followup in the office. Impacted cerumen of left ear 07/04/2019 11/28/2019 Assessment & Plan (07/04/2019 12:02 PM ENGROSSER): May use otc Debrox. If doesn't resolve, followup after completing the antibiotic and will clean out the ear. Colon cancer screening 01/02/201902/02 Encounters Date Type Department Care Team Description 05/30/2025 2:32 PM ENGROSSER - 05/30/2025 11:59 PM ENGROSSER Hospital Encounter [facility] [address] [place] [address] Memory changes Discharge Disposition: Discharge to home or self care 05/17/2025 Telephone [facility] [id number] [place] [phone] Rafael Marcum II, MD 05/12/[address] [place] [phone] Rebecca Villalobos PA 05/10/[address] [place] [address] [phone] Rebecca Villalobos PA 05/04/2025 Telephone [facility] [address] [place] [phone] Melanie Henley RN PA for nucynta approved til 11/01/2025 05/02/2025 2:34 PM CDT - 05/02/2025 11:59 PM CDT Hospital Encounter [facility] [address] [place] [phone] Gifty Ma NP Spinal stenosis of lumbar region without neurogenic claudication (Primary Dx); Lumbosacral spondylosis without myelopathy; Radiculopathy, lumbosacral region; Hypertension, essential Discharge Disposition: Discharge to home or self care 05/01/2025 4:00 PM CDT Office Visit [facility] [address] [place] [address] [address] [place] [phone] Rebecca Villalobos PA Memory changes (Primary Dx); Cigarette smoker; Moderate episode of recurrent major depressive disorder (HCC); BMI 34.0-34.9,adult; Obesity (BMI 30-39.9) 04/10/2025 Telephone [facility] [address] [place] [phone] Deysi Graves 03/10/[address] [place] [phone] Rebecca Villalobos PA 03/08/[address] [place] [address] Rebecca Villalobos PA from Last 3 Months Immunizations Immunization Administration Dates Next Due Influenza, Unspecified 05/19/2024,2022,05/07/2022(Deferred: Patient Refused),04/26/2022,11/24/2021(Deferred: Patient Refused),06/01/2019,05/11/2018 MMR 04/19/2019 Tdap 07/11/2024,07/05/2014,11/27/2012 Surgical History Surgery Date Site/Laterality Comments OTHER SURGICAL HISTORY discetomy APPENDECTOMY 2008 SPINE SURGERY 2012 and 2021 Medical History Medical History Date Comments Anxiety 1994 Hyperlipidemia Panic disorder Depression 1994 Hypothyroidism GERD (gastroesophageal reflux disease) 1998 Spinal stenosis DJD (degenerative joint disease) Sleep apnea 2017 Hypertension 2022 Family History Medical History Relation Name Comments Alcohol abuse Brother Rizwan Barajas Multiple sclerosis Brother Rizwan Barajas Arthritis Father Rizwan Barajas, Sr Cancer Father Rizwan Barajas, Sr Colon cancer Father Rizwan Ramonk, Sr Hyperlipidemia Father Rizwna Ramonk, Sr Stroke Father Rizwan Diak, Sr Diabetes Maternal Grandmother Jazmín Delfin Heart disease Maternal Grandmother Jazmín Delfin Obesity Maternal Grandmother Jazmín Delfin Memory loss Mother Janey Barajas Relation Name Status Comments Brother Rizwan Barajas Father Rizwan Barajas, Sr Maternal Grandmother Jazmín Delfin Mother Janey Barajas Alive Social History Tobacco Use Types Packs/Day Years Used Date Smoking Tobacco: Every Day Cigarettes 0.1 25 Started: 05/31/1994; Last attempted to quit: 05/31/2019 Smokeless Tobacco: Never Tobacco Cessation:Ready to Q uit: Not Asked; Counseling Given: Not Answered Comments:I quit in 2019. Recently, started again. Alcohol Use Standard Drinks/Week Comments Yes 0 (1 standard drink = 0.6 oz pur e alcohol) PHQ-2 Answer Date Recorded PHQ-2 Total Score 4 05/01/2025 PHQ-9 Answer Date Recorded PHQ-9 Total Score 9 05/01/2025 AUDIT-C Answer Date Recorded Q1: How often do you have a drink containing alc ohol? Monthly or less 05/01/2025 Q2: How many drinks containi ng alcohol do you have on a typical day when you are drinking? 1 or 2 05/01/2025 Q3: How often do you have si x or more drinks on one occasion? Less than monthly 05/01/2025 Comments Unknown Sex and Gender Information Value Date Recorded Sex Assigned at Not on file Legal Sex Female 8:20 AM CDT Gender Identity Female 11/07/2020 9:20 AM CDT Sexual Orientation Straight 11/07/2020 9: 20 AM CDT Last Filed Vital Signs Vital Sign Reading Time Taken Comments Blood Pressure 122/83 05/02/2025 2:44 PM CDT Pulse 80 05/02/2025 2:44 PM CDT Temperature 36.7 C (98 F) 05/01/2025 4:07 PM CDT Respiratory Rate 16 05/02/2025 2:44 PM CDT Oxygen Saturation 99% 05/02/2025 2:44 PM CDT Inhaled Oxygen Concentration - - Weight 90 kg (198 lb 8 oz) 05/01/2025 4:07 PM CD T Height 162.6 cm (5' 4) 02/06/2025 2:55 PM CDT Body Mass Index 34.07 02/06/2025 2:55 PM CDT Plan of Treatment Health Maintenance Due Date Last Done Comments Cervical Cancer Screening 1966 Hepatitis C Screening 1966 Hepatitis B Screening 1984 Pneumococcal vaccine <65 (1 of 2 - PCV) 1985 Zoster Vaccine (1 of 2) 1985 Breast Cancer Screening-Mammogram 06/22/2024 06/22/2023, 06/20/2023, 03/25/2022, Additional history exists Covid-19 Vaccine (5 - 2024-2 6 season) 2025 06/03/2022, 06/17/2021, 09/12/2020, Additional history exists Influenza Vaccine (#1) 2025 , 05/13/2023, 05/06/2023, Additional history exists Regular Well Visit/Exam 18-64 07/11/2025, 06/22/2023, 01/20/2022, Additional history exists Depression Screening 05/01/2026 05/01/2025, 05/01/2025, 02/06/2025, Additional history exists Colon Cancer Screening-Colonoscopy 10/11/2027 10/10/2022 DTaP/Tdap/Td Vaccine (4 - Td or Tdap) 07/11/2034 07/11/2024, 07/05/2014, 11/27/2012 Colon Cancer Screening-DNA Stool Discontinued 10/11/19, 07/29/2019 Procedures Procedure Name Priority Date/Time Associated Diagnosis Comments MRI BRAIN W WO CONTRAST Schedule Routine, Read Routine (OP Routine) 05/30/2025 3:28 PM ENGROSSER Memory changes SCREENING MAMMOGRAM BILATERAL W GURWINDER Schedule Routine, Read Routine (OP Routine) 06/20/2023 Breast cancer screening by mammogram HM COLONOSCOPY Routine 10/10/2022 from Last 3 Months or Most Recently Relevant to Health Maintenance Results * MRI Brain W WO Contrast (05/30/2025 3:28 PM ENGROSSER) Anatomical Region Laterality Modality Head and Neck N/A Magnetic Resonan ce 05/30/2025 3:48 PM ENGROSSER Impressions 05/30/2025 3:48 PM ENGROSSER 1. No acute infarction. 2. Other findings as above. 3. Previous imaging studies are not available for comparison. Electronically signed by: Ady Mckeon D.O. Narrative 05/30/2025 3:48 PM ENGROSSER EXAM DESCRIPTION:MRI BRAIN W WO CONTRAST REASON FOR STUDYMental status change, unknown cause. Mental status change. Unable to remember periods of time that are random. TECHNIQUE: Multiplanar imaging includes noncontrast T1, T2, FLAIR, diffusion with ADC map and post contrast T1 sequences. Additional sequence(s) sensitive to blood products. Images stored on PACS. CONTRAST TYPE/DOSE:gadoterate meglumine injection 18 mL was administered intravenously. COMPARISON:None available FINDINGS: There is no diffusion restriction to suggest acute/recent infarction. No parenchymal susceptibility signal to indicate blood degradation products. There is mild diffuse parenchymal volume loss. There is no hydrocephalus. The basilar cisterns are maintained. The occasional subcortical and periventricular white matter T2/flair hyperintense signal in the bilateral cerebral hemispheres is nonspecific but compatible with minor chronic microvascular ischemic-type change in a patient of this age. Similar signal is seen in the ashley. The postcontrast sequences are degraded by patient motion and pulsation artifact. As imaged there is no convincing enhancing parenchymal mass. The evaluation of the globes is degraded by pulsation artifact. As imaged bilateral globes are grossly symmetric. Mild mucosal thickening in the bilateral ethmoid air cells. There is T2 hyperintense signal in the caudal-most left mastoid air cells. Left greater than right temporomandibular joint degenerative changes. Procedure Note Ady Mckeon, DO - 05/30/2025 EXAM DESCRIPTION:MRI BRAIN W WO CONTRAST REASON FOR STUDYMental status change, unknown cause. Mental status change. Unable to remember periods of time that are random. TECHNIQUE: Multiplanar imaging includes noncontrast T1, T2, FLAIR, diffusion with ADC map and post contrast T1 sequences. Additional sequence(s) sensitive to blood products. Images stored on PACS. CONTRAST TYPE/DOSE:gadoterate meglumine injection 18 mL was administered intravenously. COMPARISON:None available FINDINGS: There is no diffusion restriction to suggest acute/recent infarction. No parenchymal susceptibility signal to indicate blood degradation products. There is mild diffuse parenchymal volume loss. There is no hydrocephalus. The basilar cisterns are maintained. The occasional subcortical and periventricular white matter T2/flair hyperintense signal in the bilateral cerebral hemispheres is nonspecific but compatible with minor chronic microvascular ischemic-type change in a patient of this age. Similar signal is seen in the ashley. The postcontrast sequences are degraded by patient motion and pulsation artifact. As imaged there is no convincing enhancing parenchymal mass. The evaluation of the globes is degraded by pulsation artifact. As imaged bilateral globes are grossly symmetric. Mild mucosal thickening in the bilateral ethmoid air cells. There is T2 hyperintense signal in the caudal-most left mastoid air cells. Left greater than right temporomandibular joint degenerative changes. IMPRESSION: 1. No acute infarction. 2. Other findings as above. 3. Previous imaging studies are not available for comparison. Electronically signed by: Ady Mckeon D.O. Rebecca SOLER IM MRI PROCEDURES Final R esult * Screening Mammogram Bilateral W Gurwinder (06/20/2023) Anatomical Region Laterality Modality Breast Bilateral Mammography Rebecca SOLER IMG MAMMO PROCEDURES Final Result * HM COLONOSCOPY (10/10/2022) Historical Provider HEALTH MAINTENANCE Edited Result - Final from Last 3 Months or Most Recently Relevant to Health Maintenance Insurance [employer] [facility] [id number] Care Teams Philosophy And Religion Instructor Relationship Specialty Start Date End Date Rebecca Villalobos PA [address] [place] [address] PCP - General Internal Medicine 11/29/18 Brown Martinez MD [address] [place] [address] Referring Physician Obstetrics and Gynecology 12/26/18
--- OUTSIDE RECORDS SUMMARY | 2025-06-06 14:14 | XMS_ITS | Encounter Summary ---
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
--- OUTSIDE RECORDS SUMMARY | 2025-06-06 14:14 | XMS_ITS | Clinical Summary ---
Author Organization [facility] Address [address] [place] [id number] Care Team Providers Care Residential Energy Auditor Name Role Phone Rebecca Villalobos Primary Care Provider [phone] Allergies Active Allergy Reactions Criticality Noted Date [...] on file Legal Sex Female 8:51 AM MEDICAL TRANSCRIPTIONIST Gender Identity Not on file Sexual Orientation Not on file Last Filed Vital Signs Vital Sign Reading Time Taken Comments Blood Pressure 140/81 09/05/2021 3:00 PM MEDICAL TRANSCRIPTIONIST Pulse 82 09/05/2021 3:00 PM MEDICAL TRANSCRIPTIONIST Temperature 36.6 C (97.9 F) 09/05/2021 3:00 PM MEDICAL TRANSCRIPTIONIST Respiratory Rate 16 09/05/2021 3:00 PM MEDICAL TRANSCRIPTIONIST Oxygen Saturation 94% 09/05/2021 3:00 PM MEDICAL TRANSCRIPTIONIST Inhaled Oxygen Concentration - - Weight 95.6 kg (210 lb 12.2 oz) 09/05/2021 9:27 AM MEDICAL TRANSCRIPTIONIST Height 162.6 cm (5' 4) 09/05/2021 9:27 AM MEDICAL TRANSCRIPTIONIST Body Mass Index 36.18 09/05/2021 9:27 AM MEDICAL TRANSCRIPTIONIST Plan of Treatment Health Maintenance Due Date Last Done Comments Cervical Cancer Screening Pap Smear (Age 30 to 64) Every 3 Years 1966 Colorectal Cancer Screening Colonoscopy (10 Years) 1966 Annual Physical 1969 Hepatitis C 1984 Hepatitis B Vaccines (1 of 3 - 19+ 3-dose series) 1985 Pneumococcal Vaccine: 50+ Years (1 of 2 - PCV) 1985 Cervical Cancer Screening Pap with HPV Testing (Age 30 to 64) Every 5 Years 1996 Cervical Cancer Screening with HPV 1996 Mammogram Screening 2006 Zoster Vaccines (1 of 2) 2016 DTaP, Tdap and Td Vaccines (3 - Td or Tdap) 07/05/2024 07/05/2014, 11/27/2012 COVID-19 Vaccine ( - season) 2025 06/17/2021, 09/12/2020, 08/14/2020 Influenza Adult (#1) 2025 04/30/2021, 05/01/2020, 06/01/2019, Additional history exists Hepatitis A Vaccines Aged Out No long er eligible based on patient's age to complete this topic Meningococcal B Vaccine Aged Out No l onger eligible based on patient's age to complete this topic Meningococcal Vaccine Aged Out No kamala harika eligible based on patient's age to complete this topic RSV Immunizations Under 20 Months Aged Out No longer eligible based on patient's age to complete this topic Insurance [employer] Advance Directives Documents on File Type Date Recorded 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
--- OUTSIDE RECORDS SUMMARY | 2025-06-06 14:14 | XMS_ITS | Data Portability ---
Author Organization [facility] Address [address] [place] [address] [place] [address] Care Team Providers Care Entry Level Lab Technician Name Role Phone DAVIS FONTANAWNA Primary Care Provider [phone] Assessment Encounter Date Assessment Date Assessment LastModified by Organization Details LastModified Time 04/21/2023 04/21/2023 Annual gynecological exam performed. Patient will come back in a year unless there are new symptoms. [email or web address] Not available 04/21/2023 17:37:13 01/02/2025 01/02/2025 Annual gynecological exam performed. Patient will come back in a year unless there are new symptoms. [email or web address] Not available 01/02/2025 16:37:48 Plan of Treatment Reminders Order Date Submit Date Provider Last Modified By Organization Details Last Modified Time Details Appointments None recorded. Lab pap, IG + HR HPV - HPV regardless but if HPV is positive need subtyping 16,18/45 2024 025 [facility] (Lab), [address], [place], [address], 18:00:04 Referral None recorded. Procedures None recorded. Surgeries None recorded. Imaging DEXA, axial skeleton + vertebral fracture assessment 2024 025 [facility], [address], [place], [address], 04:01:09 MAMMO, screening, bilateral 2022 023 [facility], [address], [place], [address], 3 10:35:06 Medication Orders None recorded. Patient [...] Repor t Case: [id number] Autho nixon anders Provjose kevin: Jael Jensen CNM Colle cted: 01/29 [...] Lorraine morris (NIL) Atrop hic cell hollie lantigua Elect gayle arellano fred d by Liza [...] is recom dede d, as clini drew cruz nted. Not Available [facility] (Lab) [address], [place], [address], 01/30/2021 22:39:44 01/30/20 21 01/29/2021 CULTU RE: URINE result report SEE RESULT S BELOW Test: Cultu re: Urine Speci men Sourc e: Urine Voide d Speci men Type: Urine Speci men Date: 3:02 PM Resul t Date: 9:36 PM Resul t Statu s: Final resul t Abnor mal: No Resul ting Lab: [facility] [address] [address] Tel: CULTU RE ----- ----- ----- --- No growt h in 1 day (dete ction level of 10,00 0 colon ies / ml.) Not Available [facility] (Lab) [address], [place], [address], 01/30/2021 22:39:45 01/30/20 21 01/29/2021 urina lysis , dipst ick Leukocytes +1 Not Available [facility] teresita [address], [place], [address], 01/29/2021 16:28:44 01/30/20 21 01/29/2021 urina lysis , dipst ick Nitrite NORMAL Not Available [facility] [address], [place], [address], 01/29/2021 16:28:44 01/30/20 21 01/29/2021 urina lysis , dipst ick Urobilinogen NORMAL Not Available [facility] [address], [place], [address], 01/29/2021 16:28:44 01/30/20 21 01/29/2021 urina lysis , dipst ick Protein TRACE Not Available [facility] [address], [place], [address], 01/29/2021 16:28:44 01/30/20 21 01/29/2021 urina lysis , dipst ick pH NORMAL Not Available [facility] [address], [place], [address], 01/29/2021 16:28:44 01/30/20 21 01/29/2021 urina lysis , dipst ick Blood + Not Available [facility] [address], [place], [address], 01/29/2021 16:28:44 01/30/20 21 01/29/2021 urina lysis , dipst ick Specific [place] NORMAL Not [facility] [address], [place], [address], 01/29/2021 16:28:44 01/30/20 21 01/29/2021 urina lysis , dipst ick Ketone NORMAL Not Available [facility] [address], [place], [address], 01/29/2021 16:28:44 01/30/20 21 01/29/2021 urina lysis , dipst ick Bilirubin NORMAL Not Available [facility] gonzalo [address], [place], [address], 01/29/2021 16:28:44 01/30/20 21 01/29/2021 urina lysis , dipst ick Glucose NORMAL Not Available [facility] [address], [place], [address], 01/29/2021 16:28:44 01/30/20 21 01/29/2021 urina lysis , dipst ick Appearance NORMAL Not Available [facility] teresita [address], [place], [address], 01/29/2021 16:28:44 01/30/20 21 01/29/2021 urina lysis , dipst ick Color NORMAL Not Available [facility] [address], [place], [address], 01/29/2021 16:28:44 04/23/20 21 04/23/2021 URINA LYSIS , WITH MICRO SCOPI C color, urine Dark Yellow colorl ess, light yellow , yellow , dark yellow , straw Possi ble color inter feren ce for bilir ubin, urobi linog en, nitri te, and leuko cyte kallie ase tests . Not Available [facility] (Lab) [address], [place], [address], 04/25/2021 00:22:53 04/23/20 21 04/23/2021 URINA LYSIS , WITH MICRO SCOPI C clarity, urine Cloudy Not Available [facility] (Lab) [address], [place], [address], 04/25/2021 00:22:53 04/23/20 21 04/23/2021 URINA LYSIS , WITH MICRO SCOPI C glucose, urine Negati ve mg/dL negati ve Not Available [facility] (Lab) [address], [place], [address], 04/25/2021 00:22:53 04/23/20 21 04/23/2021 URINA LYSIS , WITH MICRO SCOPI C bilirubin, urine Negati ve mg/dL negati ve Not Available [facility] (Lab) [address], [place], [address], 04/25/2021 00:22:53 04/23/20 21 04/23/2021 URINA LYSIS , WITH MICRO SCOPI C ketones, urine Trace mg/dL negati ve abnormal Not Available [facility] (Lab) [address], [place], [address], 04/25/2021 00:22:53 04/23/20 21 04/23/2021 URINA LYSIS , WITH MICRO SCOPI C pH, urine 5.0 . 5.0-9. 0 Not Available [facility] (Lab) [address], [place], [address], 04/25/2021 00:22:53 04/23/20 21 04/23/2021 URINA LYSIS , WITH MICRO SCOPI C specific gravity, urine 1.028 . 1.001- 1.035 Not Available [facility] (Lab) [address] [place], [address], 04/25/2021 00:22:53 04/23/20 21 04/23/2021 URINA LYSIS , WITH MICRO SCOPI C blood, urine Negati ve negati ve Not Available [facility] (Lab) [address], [place], [address], 04/25/2021 00:22:53 04/23/20 21 04/23/2021 URINA LYSIS , WITH MICRO SCOPI C protein, urine 100 mg/dL negati ve abnormal Not Available [facility] (Lab) [address], [place], [address], 04/25/2021 00:22:53 04/23/20 21 04/23/2021 URINA LYSIS , WITH MICRO SCOPI C urobilinogen , urine <2.0 mg/dL <2.0 Not Available [facility] (Lab) [address], [place], [address], 04/25/2021 00:22:53 04/23/20 21 04/23/2021 URINA LYSIS , WITH MICRO SCOPI C nitrite, urine Negati ve negati ve Not Available [facility] (Lab) [address], [place], [address], 04/25/2021 00:22:53 04/23/20 21 04/23/2021 URINA LYSIS , WITH MICRO SCOPI C leukocyte esterase, urine Trace negati ve abnormal Not Available [facility] (Lab) [address], [place], [address], 04/25/2021 00:22:53 04/23/20 21 04/23/2021 URINA LYSIS , WITH MICRO SCOPI C WBC, urine 10-14 /hpf none, 0-5 abnormal Not Available [facility] (Lab) [address], [place], [address], 04/25/2021 00:22:53 04/23/20 21 04/23/2021 URINA LYSIS , WITH MICRO SCOPI C RBC, urine 0-2 /hpf none, 0-2 Not Available [facility] (Lab) [address], [place], [address], 04/25/2021 00:22:53 04/23/20 21 04/23/2021 URINA LYSIS , WITH MICRO SCOPI C bacteria, urine None /hpf none Not Available [facility] (Lab) [address], [place], [address], 04/25/2021 00:22:53 04/23/20 21 04/23/2021 URINA LYSIS , WITH MICRO SCOPI C squamous epithelial cells, urine Few /hpf none abnormal Not Available [facility] (Lab) [address], [place], [address], 04/25/2021 00:22:53 04/23/20 21 04/23/2021 URINA LYSIS , WITH MICRO SCOPI C non-squamous epi, urine Trace /hpf none abnormal Not Available [facility] (Lab) [address], [place], [address], 04/25/2021 00:22:53 04/23/20 21 04/23/2021 URINA LYSIS , WITH MICRO SCOPI C mucus, urine Many /hpf none, trace, few abnormal Not Available [facility] (Lab) [address], [place], [address], 04/25/2021 00:22:53 04/23/20 21 04/23/2021 URINA LYSIS , WITH MICRO SCOPI C hyaline cast, urine >=50 /lpf none, 0-2 abnormal Not Available [facility] (Lab) [address] [place], [address], 04/25/2021 00:22:53 04/23/20 21 04/23/2021 CULTU RE: URINE result report SEE RESULT S BELOW Test: Cultu re: Urine Speci men Sourc e: Urine Voide d Speci men Type: Urine Speci men Date: 2020 3:32 PM Resul t Date: 2020 11:18 PM Resul t Statu s: Final resul t Abnor mal: No Resul ting Lab: [facility] [address] [address] Tel: CULTU RE ----- ----- ----- --- Cultu re resul t (>=3 organ isms prese nt) indic ates possi ble conta minat ion. Repea t cultu re if sympt oms indic ate. Not Available [facility] (Lab) [address], [place], [address], 04/25/2021 00:22:54 04/21/20 23 04/21/2023 IMAGE GUIDE D PAP AND HPV REGAR DLESS image guided Pap, HPV regardless of Pap result SEE RESULT S BELOW CASE REPOR T: Cytol ogy Gynec ologi param Repor t Case: [id number] Autho nixon anders Provi kevin: Chris Diana Colle cted: 04/21 1725 STEWARD/STEWARDESS BATH Order ing Locat ion: [place] [facility] Recei andrea: 04/22 0728 First Scree n: Karina Phelps ica Rescr een: Dwayne stuart, Malka gonsalez, CT Speci men: Scree chang Pap - Image d, Cervi x STATE MENT OF ADEQU ACY: Satis facto ry for evalu ation Trans forma tion zone compo nent canno t be defin itive ly ident ified due to the prese nce of atrop hy or other hormo nal martin es FINAL DIAGN OSIS: Negat bonifacio for Intra epith elial Saritha n or Lorraine morris (NIL) . Atrop hic sunday browne rn. Mariano ibarra d by Dwayne stuart, Malka gonsalez, CT [...] is recom dede d, as clini drew cruz nted. Not Available [facility] (Lab) [address], [place], [address], 04/24/2023 20:26:04 01/03/20 25 01/02/2025 IMAGE GUIDE D PAP AND HPV REGAR DLESS image guided Pap, HPV regardless of Pap result SEE RESULT S BELOW CASE REPOR T: Cytol ogy Gynec ologi param Repor t Case: [id number] Autho rizin g Provi kevin: Melissa Mathis NP Colle cted: 01/02 1716 Order ing Locat ion: [place] Patho [place]ada Rojasi andrea: 01/03 0227 First Harleen n: Hunter Yin, CT Speci men: Harleen downing Pap - Image d, Cervi x STATE MENT OF ADEQU ACY: Satis facto ry for evalu ation Trans forma tion zone compo nent canno t be defin itive ly ident ified due to the prese nce of atrop hy or other hormo nal martin es ----- ----- ----- ----- ----- ----- ----- ----- ----- ----- ----- ----- ----- ----- ----- ----- ----- ---- FINAL DIAGN OSIS: Negat bonifacio for Intra epith elial Saritha mcfarlane or Lorraine morris ([facility]) . Atrop hic cell hollie rn. Elect gayle arellano ferd d by Hunter Yin, CT on 2024 at 1430 CDT ----- ----- ----- ----- ----- ----- ----- [...] as clini drew warra nted. Not Available [facility] (Lab) [address], [place], [address], 01/03/2025 18:00:04 03/25/20 22 03/25/2022 MAMMO , scree chang, bilat eral No observ ation record ed. JOSE [facility] [address], [place], [address], 03/28/2022 22:54:42 03/26/20 22 03/25/2022 DEXA No observ ation record ed. JOSE [facility] [address], [place], [address], 03/28/2022 22:54:51 05/26/20 22 DEXA No observ ation record ed. [email or web address] [facility] [address], [place], [address], 05/26/2022 12:50:11 06/22/2006/20/2023 MAMMO , scree chang, bilat eral No observ ation record ed. JOSE [facility] [address], [place], [address], 06/25/2023 07:00:02 Result Notes None recorded. Problems Name Problem SNOMED Code Status Onset Date Resolution Date Notes Provider Name and Address Organization Details Recorded Time Screenin g for malignan t neoplasm of cervix Completed 201201/29/2021 Screenin g for malignan t neoplasm s of the cervix;R ecorded Elsewher e: No Locat ion: [facility] S ource: EHR [employer] kirt: N Practi ce ID: 0001 Colin lable Time: 02:30:00 PM Valorie Marino [facility] 13:32:41 Menopaus al symptom [id number] Completed 201201/29/2021 Menopaus al or female climacte ghassan states;R ecorded Elsewher e: No Locat ion: [facility] S ource: [employer] kirt: N Practi ce ID: 0001 Colin lable Time: 02:30:00 PM Valorie Marino [facility] 13:32:36 Speciali zed medical examinat ion Completed 201301/29/2021 Gynecolo gical Examinat ion;Cyril rded Elsewher e: No Locat ion: [facility] S ource: [employer] kirt: N Practi ce ID: 0001 Colin lable Time: 03:30:00 PM Valorie Marino [facility] 13:32:47 Adult health examinat ion Completed 201301/29/2021 ROUTINE MEDICAL EXAM;Rec orded Elsewher e: No Locat ion: [facility] S ource: [employer] kirt: N Practi ce ID: [id number] Colin lable Time: 03:30:00 PM Valorie Marino [facility], [facility] 13:32:29 Body mass index 30+ - obesity [id number] Completed 201401/29/2021 Body mass index (BMI) 34.0-34. 9, adult;Re corded Elsewher e: No Locat ion: [facility] S ource: [facility] kirt: N Juleeti ce ID: 0001 Colin lable Time: 04:45:00 PM Valorie Marino [facility], [facility] 13:32:[address] Concept Completed 201401/29/2021 Encntr for gynecologist exam (general ) (routine ) w/o abn findings ;Recorde d Elsewher e: No Locat ion: [facility] S ource: [facility] kirt: N Hair ce ID: 0001 Colin lable Time: 04:45:00 PM Valorie Marino [facility], [facility] 13:32:46 Screenin g for malignan t neoplasm of rectum Completed 201401/29/2021 Encounte r for screenin g for malignan t neoplasm of rectum;R ecorded Elsewher e: No Locat ion: [facility] S ource: [facility] kirt: N Hair ce ID: 0001 Colin lable Time: 04:45:00 PM Valorie Marino [facility], [facility] 13:32:44 Evaluati on finding Completed 201601/29/2021 Hematuri a, unspecif ied;Cyril rded Elsewher e: No Locat ion: [facility] S ource: [facility] kirt: N Juleeti ce ID: 0001 Colin lable Time: 05:00:00 PM Valorie Marino [facility], [facility] 13:32:[address] Concept Completed 201601/29/2021 Encounte r for general adult medical exam w abnormal findings ;Practic e ID: 0001 Valorie Marino [facility] 13:32:38 Problem Notes None recorded. Procedures Surgical History Date Name Laterality Status Provider Name and Address Organization Details Recorded Time 04/27/20 23 Date of Last Mammogram completed Clotilde Sherwood [facility] 01/02/2025 16:38:38 04/21/20 23 Date of Last Pap Smear completed Valorie Marino [facility] 04/30/2023 11:14:20 10/11/19 23 completed Valorie Marino [facility] 04/21/2023 17:38:32 10/11/19 23 Date of Last Colonoscopy completed Valorie Marino [facility] 04/21/2023 17:38:32 10/11/19 23 Colonoscopy completed Valorie Marino [facility] 04/30/2023 11:18:37 08/27/19 22 surgical manipulation of lumbar spine completed Valorie Marino [facility] 04/30/2023 11:18:24 07/27/19 13 operation on lumbar spine completed Valorie Marino [facility] 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 01/29/2021 16:36:53 07/27/19 08 Appendectomy completed Valorie Marino [facility] 01/29/2021 16:35:22 07/27/18 97 prosthetic replacement of cervical intervertebral disc completed Valorie Marino [facility] 01/29/2021 16:36:46 07/27/18 93 [facility] 01/29/2021 16:38:51 07/27/18 88 termination of completed Valorie Marino [facility] 04/30/2023 11:17:24 Imaging Results None recorded. Procedure Notes None recorded. Medical Equipment None Reported. Allergies Allergen ID Allergen Name Allergen Category Reaction Reaction Severity Criticality Documentation Date Start Date Code Code System Note Provider Name and Address Organization Details Recorded Time 05010 Augmentin medicatio n Not available Not available Not available 04/30/2023 14997 2 RxNorm Valorie Marino [facility], [facility] 11:21:38 Medications Name Sig Start Date Stop Date Status Note LastModified by Organization Details LastModified Time buspirone 5 mg tablet take 1 tablet by oral route 3 times every day 02/21 completed Prescrib ed Elsewher e: Yes Loca tion: [facility] M odify By: pako guillory DateTime : 02/16/20 13 02:30:00 PM Not Available Not Available Not Available rabeprazo le 20 mg tablet,de layed release TAKE 1 TABLET BY MOUTH TWICE DAILY 01/02 completed Not Available Not Available Not Available clindamyc in HCl 300 mg capsule TAKE ONE CAPSULE BY MOUTH THREE TIMES DAILY UNTIL ALL TAKEN 01/29 completed Not Available Not Available Not Available ibuprofen 800 mg tablet TAKE 1 TABLET BY MOUTH THREE TIMES DAILY FOR 7 DAYS NEEDED FOR PAIN 01/02 completed Not Available Not Available Not Available clonazepa m 0.5 mg tablet TAKE 1/2 TABLET BY MOUTH TWICE DAILY NEEDED active Not Available Not Available No t Available gabapenti n 400 mg capsule TAKE ONE CAPSULE BY MOUTH TWICE DAILY 01/29 completed Prescrib ed Elsewher e: No Locat ion: [facility] M odify By: loni guillory DateTime : 02/05/20 [...] DAILY NEEDED FOR PAIN FOR 7 DAYS 01/02 completed Not Available Not Available Not Available spironola ctone 25 mg tablet take 1 tablet by oral route every day 05/08 completed Prescrib ed Elsewher e: Yes Loca tion: Nolvia sánchez [facility] odify By: loni guillory DateTime : 02/16/20 13 02:30:00 PM Not Available Not Available Not Available Percocet 10 mg-325 mg tablet take 1 tablet by oral route every 6 hours as needed 09/02 completed Prescrib ed Elsewher e: Yes Loca tion: Nolvia [facility] odify By: kalin cordoba DateTime : 02/16/20 13 02:30:00 PM Not Available Not Available Not Available Coumadin 5 mg intraveno us solution inject 1 millilit er by intraven ous route every day over as an IV bolus 09/02 completed Prescrib ed Elsewher e: Yes Loca tion: Candice gnozalo [facility] odify By: kalin cordoba DateTime : 02/16/20 13 02:30:00 PM Not Available Not Available Not Available simvastat in 5 mg tablet take 1 tablet by oral route every day in the evening 01/29 completed Prescrib ed Elsewher e: Yes [facility] By: kalin cordoba DateTime [...] ed Elsewher e: Yes Loca tion: Nolvia [facility] odify By: kalin cordoba DateTime : 09/02/19 14 09:00:00 AM Not Available Not Available Not Available hydrochlo rothiazid e 25 mg tablet 01/02 completed Not Available Not Available Not Available gabapenti n 100 mg capsule take 3 Capsule (300MG) by oral route 2 times every day 02/21 completed Prescrib ed Elsewher e: No Locat ion: Nolvia sánchez [facility] odify By: hi Hemphillou nter DateTime : 09/02/19 14 09:00:00 AM Not Available Not Available Not Available methylpre dnisolone 4 mg tablets in a dose pack FPD 01/29 completed Not Available Not Available Not Available Prozac 10 mg capsule take 1 Capsule by oral route every day 01/02 completed Prescrib ed Elsewher e: Yes Loca tion: Nolvia sánchez [facility] odify By: loni guillory DateTime : 05/08/20 15 04:45:00 PM Not Available Not Available Not Available ondansetr on 4 mg disintegr ating tablet DISSOLVE 1 TABLET ON THE TONGUE EVERY 8 HOURS NEEDED FOR NAUSEA OR VOMITING 01/02 completed Not Available Not Available Not Available tobramyci n 0.3 %-dexamet hasone 0.1 % eye drops,stiven pension SHAKE LIQUID AND INSTILL 1 DROP IN LEFT EYE FOUR TIMES DAILY FOR 7 DAYS 01/02 completed Not Available Not Available Not Available oxycodone 5 mg tablet TAKE 1 TABLET BY MOUTH EVERY 4 HOURS NEEDED FOR PAIN 01/02 completed Not Available Not Available Not Available Colace 50 mg capsule take 1 capsule by oral route every day at bedtime as needed 09/02 completed Prescrib ed Elsewher e: Yes Loca tion: Nolvia sánchez [facility] odify By: kalin Sánchez ncounter DateTime : 02/16/20 13 02:30:00 PM Not Available Not Available Not Available escitalop enriuqe 20 mg tablet TAKE 1 TABLET BY MOUTH EVERY DAY active Not Available Not Available No t Available bupropion HCl XL 300 mg 24 hr tablet, extended release active Not Available Not Available Not Available Cymbalta 20 mg capsule,d elayed release take 3 Capsule by oral route every day 05/08 completed Prescrib ed Elsewher e: Yes Loca tion: Nolvia sánchez [facility] odify By: bchappel l Encoun ter DateTime : 02/16/20 13 02:30:00 PM Not Available Not Available Not Available eszopiclo ne 2 mg tablet TAKE ONE TABLET BY MOUTH AT BEDTIME DIRECTED 01/02 completed Not Available Not Available Not Available fenofibra te 160 mg tablet active Not Available Not Available Not Available valacyclo vir 01/02 completed Not Available Not Available Not Available [facility] Levothyro xine Sodium 01/02 completed Not Available Not Available Not Available pantopraz ole 01/29 completed Not Available Not Available Not Available Fenofibra te 01/29 completed Not Available Not Available Not Available Lipofen 50 mg capsule take 1 capsule by oral route every day with a meal 01/29 completed Prescrib ed Elsewher e: Yes Loca tion: [facility] odify By: kalin cordoba DateTime : 02/16/20 13 02:30:00 PM Not Available Not Available Not Available nebivolol 5 mg tablet active Not Available Not Available Not Available nebivolol 01/02 completed Not Available Not Available Not Available Protonix 40 mg granules delayed-r elease packet take 1 packet by oral route every day mixed in 1 teaspoon ful of applesau ce or apple juice 01/29 completed Prescrib ed Elsewher e: Yes Loca tion: [facility] odify By: kalin cordoba DateTime : 02/16/20 13 02:30:00 PM Not Available Not Available Not Available Nucynta 50 mg tablet TAKE 1 TO 2 TABLETS BY MOUTH DAILY NEEDED FOR PAIN active Not Available Not Available No t Available Tirosint 13 mcg capsule take 1 capsule by oral route every day 01/29 completed Prescrib ed Elsewher e: Yes Loca tion: [facility] odify By: shilo colon DateTime : 01/21/20 17 05:00:00 PM Not Available Not Available Not Available sodium,po tassium,m ag sulfates 17.5 gram-3.13 gram-1.6 gram oral soln MIX AND DRINK DIRECTED 01/02 completed Not Available Not Available Not Available Viibryd 10 mg tablet take 1 by Oral route every 24 hours for 30 09/02 completed Prescrib ed Elsewher e: Yes Loca tion: [facility] odify By: kalin cordoba DateTime : 02/16/20 13 02:30:00 PM Not Available Not Available Not Available Gralise 600 mg tablet,ex tended release take 3 tablet (1800MG) by oral route every day with the evening meal 09/02 completed Prescrib ed Elsewher e: No Locat ion: [facility] odify By: cmedical Encount er DateTime : 09/02/19 14 09:00:00 AM Not Available Not Available Not Available Forfivo XL 450 mg 24 hr tablet, extended release TAKE 1 TABLET BY MOUTH EVERY DAY 01/02 completed Not Available Not Available Not Available Acid Motorcycle Builder (omeprazo le) 01/02 completed Not Available Not Available Not Available Ozempic 0.25 mg or 0.5 mg (2 mg/1.5 mL) subcutane ous pen injector INJECT 0.5 MG UNDER THE SKIN EVERY 7 DAYS 01/02 completed Not Available Not Available Not Available Adult Multivita min Extra Vitamin D3 200 mcg chewable tablet active Not Available Not Available Not Available cannabidi ol (CBD) extract active Not Available Not Available Not Available Ozempic 1 mg/dose (4 mg/3 mL) subcutane ous pen injector INJECT 1MG UNDER THE SKIN EVERY 7 DAYS 01/02 completed Not Available Not Available Not Available Wegovy 2.4 mg/0.75 mL subcutane ous pen injector ADMINIST ER 2.4 MG UNDER THE SKIN EVERY 7 DAYS 01/02 completed Not Available Not Available Not Available Wegovy 1.7 mg/0.75 mL subcutane ous pen injector INJECT 1.7 MG UNDER THE SKIN EVERY 7 DAYS active Not Available Not Available No t Available Vitals Date Recorded Body height Body mass index (BMI) Body weight Systolic And Diastolic Provider Name and Address Organization Details Last Updated DateTime 01/02/2025 162.56 cm 32.8 kg/m2 81931.14 g 117/79 mm[Hg] Clotilde Sherwood [facility] 01/02/2025 16:38:20 Date Recorded Body height Body mass index (BMI) Body weight Systolic And Diastolic Provider Name and Address Organization Details Last Updated DateTime 01/29/2021 162.56 cm 35.7 kg/m2 10132.21 g 151/102 mm[Hg] Valorie Marino [facility] 01/29/2021 13:06:42 Date Recorded Body height Body mass index (BMI) Body weight Systolic And Diastolic Provider Name and Address Organization Details Last Updated DateTime 04/21/2023 162.56 cm 34.3 kg/m2 42227.47 g 120/76 mm[Hg] Valorie Marino [facility] 04/21/2023 17:37:41 Social History Question Answer Notes LastModified by Organizat ion Details LastModified Time Tobacco Smoking Status Current Every Day Smoker Clotilde Souzashana michele, [facility] 01/02/2025 16:43:08 Do You Have An Advance Directive? No [email or web address] Information not available 01/29/2021 How Many Years Have You Consumed Alcohol? 40 [email or web address] Information not available 01/29/2021 Are You Blind Or Do You Have Difficulty Seeing? No [email or web address] Information not available 01/29/2021 What Is Your Level Of Caffeine Consumption? Moderate [email or web address] Information not available 01/29/2021 How Much Tobacco Do You Chew? None [email or web address] Information not available 01/29/2021 In The 14 Days Before Symptom Onset, Have You Had Close Contact With A Laboratory-confir med COVID-19 While That Case Was Ill? No [email or web address] Information not available 01/29/2021 In The 14 Days Before Symptom Onset, Have You Had Close Contact With A Person Who Is Under Investigation For COVID-19 While That Person Was Ill? No [email or web address] Information not available 01/29/2021 Have You Been To An Area Known To Be High Risk For COVID-19? No Information not available 01/29/2021 Are You Deaf Or Do You Have Serious Difficulty Hearing? No [email or web address] Information not available 04/21/2023 What Type Of Diet Are You Following? CARBOHYDRATE [email or web address] Information not available 01/02/2025 What Is The Highest Grade Or Level Of School You Have Completed Or The Highest Degree You Have Received? [id number] [email or web address] Information not available 01/29/2021 Are There Any Guns Present In Your Home? Yes [email or web address] Information not available 01/29/2021 Do You Use Protection During Sex? No [email or web address] Information not available 01/29/2021 Do You Use Your Seat Belt Or Car Seat Routinely? Yes [email or web address] Information not available 01/29/2021 Do You Have Smoke And Carbon Monoxide Detectors In Your Home? Yes Information not available 01/29/2021 At What Age Did You Start Smoking Tobacco? 14 [email or web address] Information not available 01/29/2021 How Much Tobacco Do You Smoke? No [email or web address] Information not available 01/29/2021 Do You Use Sunscreen Routinely? Yes [email or web address] Information not available 01/02/2025 How Many Years Have You Smoked Tobacco? 30 [email or web address] Information not available 01/29/2021 Have You Used IV Drugs? No [email or web address] Information not available 01/29/2021 Sex: Unknown Functional Status Question Answer Note LastModified by Organizat ion Details LastModified Time Do you use any illicit or recreational drugs? No [email or web address] Information not available 01/29/2021 What is your level of alcohol consumption? Occasional [email or web address] Information not available 01/29/2021 Are you able to walk independently without assistance or assistive devices? 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 Occasional Information not available 01/02/2025 Mental Status Question Answer Note LastModified by Organization D etails LastModified Time Do you feel stressed (tense, restless, nervous, or anxious, or unable to sleep at night)? [id number] Information not available 01/02/2025 Family History Relationship Description Onset Age of this Age Resolved Age Notes LastModified by Organization Details LastModified Time Maternal Grandmother Heart disease [email or web address] Not available 01/29 13:07:33 Maternal Grandmother Diabetes mellitus Not available 01/29 13:07:33 Father Malignant neoplasm of colon [email or web address] Not available 01/29 13:07:33 Father Hyperlipidem ia [email or web address] Not available 03/2025 16:16:41 Brother Multiple sclerosis Not available 01/29 13:07:33 Mother Hyperlipidem ia [email or web address] Not available 03/2025 16:16:41 Notes:Father: Hyperlipidemia , Cancer, colon Maternal grandmother: Diabetes mellitus Mother: Hyperlipidemia Medical History Condition Response Other N Blood Transfusion N Dermatologic Disorders N Gestational Diabetes N Anxiety Disorder Y Autoimmune disease N Arthritis Y Polyps N Infertility N Acid Reflux (GERD) Y Cancer N Varicosities N Stroke N Neurologic/Epilepsy Y Fibromyalgia N Headaches N Kidney Disease N Heart Problems N Kidney or Bladder Problems N Eating Disorder N Art (IVF or FET) N Hepatitis/Liver Disease N No Past Medical History N Urinary Tract Infection N Asthma N Trauma/Violence N Thrombophilias N Allergies (Food, seasonal, environmental ) N Breast Cancer N Drug/Latex Allergies/Reactions Y Lung Disease N Defects or Inherited Disease N Breast Problem N Hematologic disorders N Anesthesia Complications N Deep Vein Thrombosis Y Polycystic ovary syndrome N History of abnormal pap Y Endometriosis N High Cholesterol Y Thyroid Problems Y GI Problems N Anemia N Psychiatric Illness Y Ovarian Cancer N Diabetes N Pulmonary (TB, Asthma) N Eczema N Abuse/Domestic Violence N Depression/ depression Y Heart Disease N Pre-Eclampsia N Hypertension Y Osteoporosis Y Gynecological History Statement/Question Response Date of Last Mammogram 04/27/2023 Date of LMP 07/27/2007 N Was last menstrual period normal Y STIs/STDs N If Post Menopausal, Age at Menopause 43 Date of Last Colonoscopy 10/10/2022 Abnormal Pap Y On BCP's at Conception? N HPV Vaccine N Colposcopy Duration of Flow (days) 5 Current Control Method N/A Frequency of Cycle (Q days) 28 Sexually Active? N Menses Monthly N Date of DEXA bone scan 05/26/2022 [...] Diagnosis SNOMED-CT Code Diagnosis ICD10 Code Diagnosis IMO Codes Diagnosis Note [id number] [facility] [address] [address] 01/29/2021 12:50:22 01/29/2021 16:44:37 Gynecologic examination 59180483 Z01.419 Take Calcium with Vitamin D 12-1500mg daily. Do monthly self breast exams. It is advised to get annual flu shot in the fall and she could obtain at [facility]. If you haven't received the Tdap vaccine [...] or respond to this email. Herpes simplex [id number] B00.9 S/O was diagnosed with hsv many years ago so what is likely her primary outbreak is not a surprise. Discussed treatment options. Will plan episodic treatment at this time. [id number] Kareen Rosario [facility] [address] [address] 04/21/2023 17:20:57 04/22/2023 16:04:43 Gynecologic examination 77101291 Z01.419 Take Calcium with Vitamin D 12-1500mg daily. Do monthly self breast exams. It is advised to get annual flu shot in the fall and she could obtain at [facility] or [facility]. If you haven't received the Tdap vaccine [...] Screen [facility] PCP Screening mammography 24 653816 Z12.31 [id number] BEENA Zarate [place] [address] [address] 01/02/2025 16:16:26 01/03/2025 09:44:49 Gynecologic examination 24061614 Z01.254 [id number] WWEpostmen opausalPap - done today per pt preference STI screen - declinedMa mmogram - UTD/PCPCol on cancer screening - UTDDexa - order givenRouti ne labs - UTD/PCPRTC in 1 yr or sooner if needed Do monthly self breast exams.It is advised to get annual flu shot in the fall and she could obtain at local pharmacy. If you haven't received the Tdap vaccine in the last 10 years you should obtain one as well.Have mammogram yearly, bone density every 2-3 years and stay up to date on colon cancer screening. Engage in regular exercise. Avoid tobacco and illicit drugs. This lifestyle behavior pattern will lead to less health conditions and longer life span. If BMI greater than 25 dietary consult advised.Qu estions have been answered. Screening for osteoporosis [id number] Z13.820 [id number] Health Concerns Section Related Observation LastModified by Organization Detai ls LastModified Time None Recorded Concern Status LastModified by Organization Details LastModified Time None Recorded Advance Directives Directive N: Payers Insurance Date Sequence Insurance Name Policy Number Policy De Jesus Covered Member ID De Jesus Member ID Guarantor Name 12/28/2024 1 [employer] [id number] Jazmín Green [id number] OI Jazmín Green 04/25/2023 1 [employer] - ALLIED BENEFITS - OPEN ACCESS Jazmín Green [id number] OI [id number] SOI Jazmín Green 01/04/2025 1 [employer] - [facility] BENEF[facility] PLAN Jazmín Green [id number] OI Jazmín Green 04/21/2023 1 [employer] [id number] Jazmín Green [id number] OI Jazmín Green 04/21/2023 1 [employer] - DOS PRIOR TO 21 - [facility] BENEFITS [facility] [id number] Jazmín Dejesus [id number] OI Jazmín Dejesus Notes Date Note Type Note Provider Name and Address Organization Details Recorded Time 1 text/html Annual GYNReported by PatientGenitourinary symptomsFor urinary symptoms, patient reportsno hematuriaandno incontinence. For vulva, patient reportsno genital lesion. For vagina, patient reportsnormal vaginal discharge.Breast symptomsFor breast, patient reportsno breast pain,no breast lump, andno nipple discharge.Endocrine symptomsFor sexual complaints, patient reportsno sexual complaints,no pain during intercourse, andnormal libido. For menopausal symptoms, patient reportsno menopausal symptomsandnormal vaginal lubrication.Psychological symptomsFor psychological symptoms, patient reportsno depression,no anxiety, andno pmdd. has hsv. Pt believes she had her 1st outbreak 2 weeks ago. Was seen and treated by pcp. Lesion and pain has resolved. Jael michele [facility] 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 For vaginal bleeding, patient reportshistory of menopause having occurredandno history of post menopausal bleeding. For urinary symptoms, patient reportsno hematuria,no incontinence,no nocturia, andno urinary frequency. For vulva, patient reportsno genital lesionandno vulvar atrophy. For vagina, patient reportsnormal vaginal dischargeandno vaginal atrophy.Breast symptomsFor breast, patient reportsno breast lump,no nipple discharge, andno breast pain.Psychological symptomsFor sexual complaints, patient reportsno sexual complaints. For psychological symptoms, patient reportsno depressionandno anxiety.Preventative measuresFor preventive measures, patient reportsencourage regular mammograms starting age 40,encourage self breast examination,encourage regular exercise,encourage no tobacco use,needs to schedule mammogram, andhistory of recent colonoscopy. BEENA Grant- [address], [place], [address], [place] [facility] 04/22/2023 14:21:09 5 text/html Annual Field Technical Assistant Post-MenopausalReported by PatientGenitourinary symptomsFor menopausal symptoms, patient reportsno menopausal symptomsandnormal vaginal lubrication. For vaginal bleeding, patient reportshistory of menopause having occurredandno history of post menopausal bleeding. For urinary symptoms, patient reportsno hematuria,no incontinence,no nocturia, andno urinary frequency. For vulva, patient reportsno genital lesionandno vulvar atrophy. For vagina, patient reportsnormal vaginal dischargeandno vaginal atrophy.Breast symptomsFor breast, patient reportsno breast lump,no nipple discharge, andno breast pain.Psychological symptomsFor sexual complaints, patient reportsno sexual complaints. For psychological symptoms, patient reportsno depressionandno anxiety.Preventative measuresFor preventive measures, patient reportsencourage regular mammograms starting age 40,encourage self breast examination,encourage regular exercise, andencourage no tobacco use.59yo wwepostmenopausallast pap 03/2023 : nilm, HPV (-)mammogram - has scheduled, ordered through PCPcolonoscopy UTDdexa 2021 - osteopenia BEENA Zarate [address], [place], [address], [place] [facility] 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
--- OUTSIDE RECORDS SUMMARY | 2025-06-06 14:14 | XMS_ITS | Encounter Summary ---
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
== END 2025-06-06 14:08 | disposition home or self-care (01) ==
LOC: ANHFOHIMG 14:09
PROVIDERS: PCP Physician Assistant; Visit Provider Physician Assistant
DX: Z12.31 Encounter for screening mammogram for malignant neoplasm of breast (principal)
CPT/HCPCS: 77063; 77067